=== PATIENT | female | born 1980 | race Caucasian/White ===

== ENCOUNTER 2023-04-07 09:37 | Outpatient (REF) | payer OTHER, SELFPAY ==
[2023-04-07 10:12] LABS: MANUAL DIFF FLAG NO
[2023-04-07 11:12] LABS: Basophils Percent Auto 0.3 % (0-2); Eosinophils Absolute Auto 0.1 X10*3/uL (0.0-0.4); Hemoglobin 14.5 g/dl (12.0-16.0); Imm Gran Abs Auto 0.06 X10*3/uL (0.00-0.03); Imm Gran Pct Auto 0.8 % (0.0-0.4); Lymphocytes Absolute Auto 2.4 X10*3/uL (1.2-4.9); Mean Corpuscular HGB Conc 33.7 g/dl (31.0-35.0); Mean Corpuscular Hemoglobin 30.5 pg (27.0-33.0); Mean Corpuscular Volume 90.5 fL (80.0-98.0); Mean Platelet Volume 10.5 fL (9.4-12.3); Monocytes Absolute Auto 0.8 X10*3/uL (0.1-1.2); Monocytes Percent Auto 9.8 % (2-11); Neutrophils Absolute Auto 4.6 x10*3/uL (2.0-8.3); Neutrophils Percent Auto 58.1 % (45-73); Platelet Count 282 X10*3/uL (160-400); Red Blood Count 4.75 X10*6/uL (4.20-5.50); Red Cell Distribution Width 12.3 % (11.0-16.0); White Blood Count 7.8 X10*3/uL (4.8-10.8)
[2023-04-07 12:04] LABS: Alanine Aminotransferase 20 U/L (0-31); Albumin Level 4.3 g/dL (3.5-5.0); Alkaline Phosphatase 65 U/L (39-117); Anion Gap 15 (12-20); Aspartate Amino Transferase 18 U/L (5-31); Bilirubin Total 0.6 mg/dL (0.0-1.0); Blood Urea Nitrogen 16 mg/dL (9-16); Calcium 9.4 mg/dL (8.4-10.2); Carbon Dioxide 22 mmol/L (22-29); Chloride 106 mmol/L (96-108); Cholesterol 211 mg/dL; Estimated Glomerular Filt Rate > 60; Glucose Random 91 mg/dL (60-115); HDL Cholesterol 58 mg/dL; LDL Cholesterol Calculated 140 mg/dl; Potassium 4.5 mmol/L (3.3-5.1); Sodium 138 mmol/L (135-145); Total Protein 7.4 g/dL (6.5-8.0); Triglycerides 69 mg/dL
== END 2023-04-07 09:38 | disposition home or self-care (01) ==
LOC: HO.LAB 09:37
PROVIDERS: PCP Internal Medicine; Visit Provider Internal Medicine
DX: Z00.00 Encounter for general adult medical examination without abnormal findings (principal); F32.2 Major depressive disorder, single episode, severe without psychotic features; F90.0 Attention-deficit hyperactivity disorder, predominantly inattentive type; N20.0 Calculus of kidney; N30.10 Interstitial cystitis (chronic) without hematuria; R10.11 Right upper quadrant pain; R19.7 Diarrhea, unspecified
CPT/HCPCS: 36415; 80053; 80061; 85025

== ENCOUNTER 2023-04-29 10:15 | Outpatient (REF) | payer OTHER, SELFPAY ==
--- NOTE | ~2023-04-29 | US_ITS ---
EXAMINATION: US ABDOMEN COMPLETE CLINICAL INFORMATION: Right upper quadrant pain. COMPARISON: None available. TECHNIQUE: Real-time imaging of the abdominal viscera. FINDINGS: PANCREAS: Normal. ABDOMINAL AORTA: The proximal, mid, and distal segments are normal in caliber. INFERIOR VENA CAVA: Visualized portions are normal. LIVER: Normal. The liver is normal in size. The liver contour is normal. Parenchymal echogenicity is normal. No focal hepatic lesion. There is no intrahepatic biliary duct dilatation seen. GALLBLADDER: There are a few tiny gallbladder cholesterol polyps, the largest measuring 3 mm. The gallbladder is physiologically distended without evidence of stones, sludge, wall thickening or pericholecystic fluid. COMMON BILE DUCT: Normal in caliber measuring 0.4 cm in diameter. RIGHT KIDNEY: Normal. No hydronephrosis. No renal calculi or focal parenchymal lesions. The kidney measures 9.7 cm in maximum dimension. LEFT KIDNEY: Normal. No hydronephrosis. No renal calculi or focal parenchymal lesions. The kidney measures 10.5 cm in maximum dimension. SPLEEN: No focal finding. The spleen measures 10.0 cm in maximum dimension. FREE FLUID: None. OTHER: A left pleural effusion is seen. US/US abdomen complete IMPRESSION: 1. Tiny cholesterol polyps are incidentally noted. No imaging follow-up is recommended. 2. A left pleural effusion is seen.
== END 2023-04-29 10:16 | disposition home or self-care (01) ==
LOC: HO.US 10:15
PROVIDERS: PCP Internal Medicine; Visit Provider Internal Medicine
DX: R10.11 Right upper quadrant pain (principal)
CPT/HCPCS: 76700

== ENCOUNTER 2023-05-06 09:43 | Outpatient (AMB) | payer OTHER, SELFPAY ==
--- NOTE | 2023-05-06 09:50 | MHC.OFFVIS ---
Intake Vital Signs 05/06/23 09:54 Height 5 ft 1 in Weight 139 lb BMI 26.3 BP 121/68 Blood Pressure Location Rt brachial Position Sitting Pulse 77 Intake Visit Reasons: Abdominal Pain/Chronic Diarrhea Intake Note: This patient presents for an assessment for abdominal pain and chronic diarrhea. Patient c/o; Onset 1 year, RUQ pain radiates towards back, denies loss of appetite, reports chronic diarrhea, denies nausea or vomiting. Hematologist Oncologist Required: No Accompanied by: Self / Same As Patient Allergies No Known Allergies Allergy (Verified 05/06/23 09:54) HPI Abdominal Pain/Chronic Diarrhea HPI Details 42-year-old female referred for chronic abdominal pain. She has had this pain on the right flank area although with right upper quadrant. She says this started May 2022. She says she was in [facility] at that time and was diagnosed to have a kidney stone on the right. She says she was septic with an infection then she eventually had a procedure done in [place] to remove the kidney stone. She says that since that time, she has had this chronic pain on the same side. She denies any GI complaints. She actually has good oral intake. She denies any weight loss She says that she had followed with her urologist in [place] and was referred to a urogynecologist because she has urinary incontinence as well. She had an ultrasound done last week which shows small gallbladder polyps. [facility] Medical History (Updated 05/06/23 @ 10:18 by Nader Wells MD) Chronic right flank pain History of kidney stones Surgical History (Updated 05/06/23 @ 09:55 by FARAZ Frazier) H/O nephrolithotomy with removal of calculi Family History (Updated 05/06/23 @ 09:56 by FARAZ Frazier) Maternal Aunt Cancer Social History (Updated 05/06/23 @ 10:01 by FARAZ Frazier) Alcohol intake: never Patient Tobacco Use Status: Never used Tobacco Substance Use Type: Marijuana Review of Systems Const Denies chills and Denies fever(s) Card Denies chest pain, Denies dyspnea and Denies dyspnea on exertion Resp Denies cough, Denies dyspnea and Denies dyspnea on exertion GI Denies hematochezia and Denies change in bowel habits Denies hematuria Musc Denies back pain and Denies limited range of motion Neuro Denies focal weakness and Denies convulsions Psych Denies depression and Denies mood swings Physical Exam Vital Signs: Last Vital Signs Pulse 77 05/06/23 09:54 BP 121/68 05/06/23 09:54 BMI result Body Mass Index 26.3 Const General: comfortable and no acute distress Orientation/consciousness: patient oriented x3 Neck Neck: Yes no lymphadenopathy Resp Auscultation: clear to auscultation bilaterally Cardio Rhythm: regular rhythm GI Other: No Hernandez's sign Palpation (GI): Soft to palpation, nontender and no guarding Neuro General: patient oriented x3 Assessment & Plan Assessment & Plan (1) Chronic right flank pain: Code(s): R10.9 - Unspecified abdominal pain; G89.29 - Other chronic pain Plan: She has chronic pain on the right flank and she says that this is the same as she has had when she was diagnosed to have kidney stones with urosepsis in May,. She had a procedure done for this with Urology I have ordered a CT scan of the abdomen and pelvis to re-evaluate the area. Currently she has a very benign exam. Her ultrasound shows small cholesterol polyps in the gallbladder and I assured her that this does not require any intervention and is unlikely to be causing her chronic right-sided abdominal pain I will see her in the office after her CT scan. Her sister was involved with discussion. Orders: Orders CT abdomen pelvis wo/w IV con Today G89.29 - Other chronic pain, R10.9 - Unspecified abdominal pain Blood Urea Nitrogen Today G89.29 - Other chronic pain, R10.9 - Unspecified abdominal pain Creatinine Today G89.29 - Other chronic pain, R10.9 - Unspecified abdominal pain Coding Level of Care Code New Pt Level 4 (88101) Diagnoses Chronic right flank pain R10.9; G89.29
[2023-05-06 09:54] VITALS: BP 121/68; PULSE 77; BMI 26.3
== END 2023-05-06 10:29 | disposition home or self-care (01) ==
PROVIDERS: PCP Internal Medicine; Referring Provider Internal Medicine; Visit Provider Surgery
DX: R10.9 Unspecified abdominal pain (principal); G89.29 Other chronic pain
CPT/HCPCS: 99204

== ENCOUNTER 2023-05-06 09:43 | Outpatient (REF) | payer OTHER, SELFPAY ==
[2023-05-06 11:21] LABS: Blood Urea Nitrogen 21 mg/dL (9-16); Estimated Glomerular Filt Rate > 60
== END 2023-05-06 09:44 | disposition home or self-care (01) ==
LOC: HO.LAB 09:43
PROVIDERS: PCP Internal Medicine; Referring Provider Internal Medicine; Visit Provider Surgery
DX: R10.9 Unspecified abdominal pain (principal); G89.29 Other chronic pain
CPT/HCPCS: 36415; 82565; 84520; 99202

== ENCOUNTER 2023-06-04 08:24 | Outpatient (REF) | payer OTHER, SELFPAY ==
--- NOTE | ~2023-06-04 | CT_ITS ---
EXAMINATION: CT ABDOMEN AND PELVIS WITH CONTRAST CLINICAL INFORMATION: Abdominal pain COMPARISON: Previous abdominal ultrasound April 2023 TECHNIQUE: Multidetector volumetric images were obtained from the superior aspect of the liver through the pubic symphysis following administration 85 mL of Omnipaque 350 intravenous contrast. Sagittal and coronal reformatted images were obtained on the technologist's workstation. Oral contrast: Yes This CT examination was performed using dose optimization techniques as appropriate, variously including the following: *Automated exposure control *Adjustment of mA and/or kV according to patient size (this includes techniques or standardized protocols for targeted exams where dose is matched to indication/reason for exam; i.e. extremities or head) *Use of iterative reconstruction technique DLP: 361 mGy-cm FINDINGS: LUNG BASES: The visualized lung bases are unremarkable. LIVER, GALLBLADDER, AND BILIARY TREE: The liver is normal in size, shape, and attenuation. No focal hepatic lesion or biliary ductal dilatation is present. The gallbladder is unremarkable with no evidence of radiopaque gallstones, gallbladder wall thickening, or obvious pericholecystic inflammatory changes. PANCREAS: Unremarkable. SPLEEN: Unremarkable. ADRENAL GLANDS: Unremarkable. KIDNEYS AND URETERS: The kidneys are normal in size, shape, and attenuation. No hydronephrosis, hydroureter, or calculi seen. No perinephric stranding. BLADDER: Unremarkable. GASTROINTESTINAL TRACT: There are questionable scattered areas of mild wall thickening of the colon. Largest areas seen in the proximal sigmoid colon. There is prominence of the adjacent vasculature/vasa recta. Findings are questionable for mild colitis. Small and large bowel is otherwise normal. The appendix is normal. ABDOMINAL WALL: No significant hernia is appreciated. LYMPH NODES: Normal. VASCULAR: Unremarkable. PELVIC VISCERA: Unremarkable. OSSEOUS STRUCTURES: Unremarkable. CT/CT abdomen pelvis w IV con IMPRESSION: Question mild colitis. Fleischner guidelines were followed.
[2023-06-04] MEDS: iohexoL 350 MG/ML 100 ML INFUS..BTL IV (09:16)
== END 2023-06-04 08:25 | disposition home or self-care (01) ==
LOC: HO.CT 08:24
PROVIDERS: PCP Internal Medicine; Visit Provider Surgery
DX: R10.9 Unspecified abdominal pain (principal); G89.29 Other chronic pain; Z87.442 Personal history of urinary calculi
CPT/HCPCS: 74177; Q9967

== ENCOUNTER 2023-06-11 10:14 | Outpatient (AMB) | payer OTHER, SELFPAY ==
--- NOTE | 2023-06-11 10:31 | MHC.OFFVIS ---
Intake Intake Visit Reasons: Follow Up CT scan Results Intake Note: This patient presents for a follow-up for Ct-Scan results. Patient c/o;reports no changes. Cyber Analyst Required: No Accompanied by: Self / Same As Patient Allergies No Known Allergies Allergy (Verified 06/11/23 10:31) Medication List - Last Reconciled 06/11/23 by Nader Wells MD sertraline 150 mg PO DAILY HPI Follow Up CT scan Results HPI Details She is here for follow-up after a CT scan. I had sent her for this CAT scan of the abdomen and pelvis because of her chronic pain on the right side of her abdomen. She reiterated that this started after she had kidney stones in the past and had a ureteroscopy and stone removal last July,. She feels that the pain that she has is same as before when she had this ureteroscopy. She denies GI complaints otherwise. She also has issues with bladder prolapse and says she is seeing a urogynecologist. [facility] Medical History History of kidney stones Chronic right flank pain Surgical History H/O nephrolithotomy with removal of calculi Family History Maternal Aunt Cancer Social History Alcohol intake: never Patient Tobacco Use Status: Never used Tobacco Substance Use Type: Marijuana Review of Systems Const Denies chills and Denies fever(s) Card Denies chest pain and Denies chest pain at rest Resp Denies cough GI Denies constipation, Denies diarrhea and Denies nausea Reports difficulty voiding Physical Exam Const General: no acute distress Resp Effort & Inspection: normal respiratory effort Cardio Rate: regular rate GI Palpation (GI): Soft to palpation, not firm, Tenderness to palpation present (GI) (Some tenderness to deep palpation on the right flank area, right upper quad) and no guarding Assessment & Plan Assessment & Plan (1) Chronic right flank pain: Code(s): R10.9 - Unspecified abdominal pain; G89.29 - Other chronic pain Plan: Her CAT scan does not reveal any significant pathology in the right side of her abdomen. She does have a small gallbladder polyp measuring about 3 mm in size. I explained to her that it is not normally recommended to proceed with cholecystectomy for a gallbladder polyp of this small size. I did explain to her the option of proceeding with cholecystectomy because of her chronic pain although it is unlikely that this is for etiology. She says she does not want to go for cholecystectomy if it is unlikely to provide relief She reiterated that her pain is the same as when she had her ureteroscopy done almost a year ago. I did advise her to continue to see her urologist. I can see her in the office on a p.r.n. basis. I have recommended following the gallbladder polyp had an ultrasound after a year. Coding Level of Care Code Est Pt Level 3 (31430) Diagnoses Chronic right flank pain R10.9; G89.29
== END 2023-06-11 10:45 | disposition home or self-care (01) ==
PROVIDERS: PCP Internal Medicine; Visit Provider Surgery
DX: R10.9 Unspecified abdominal pain (principal); G89.29 Other chronic pain
CPT/HCPCS: 99213

== ENCOUNTER → 2023-06-11 10:14 | Outpatient (BNVA) | payer OTHER, SELFPAY | PROVIDERS: PCP Internal Medicine; Visit Provider Surgery | DX: G89.29 Other chronic pain (principal); R10.9 Unspecified abdominal pain | CPT/HCPCS: 99212 ==

== ENCOUNTER 2023-06-22 11:03 | Outpatient (AMB) | payer OTHER, SELFPAY ==
--- NOTE | 2023-06-22 11:31 | MHC.OFFVIS ---
Intake Vital Signs 06/22/23 11:32 Height 5 ft 1 in Weight 145 lb 1.027 oz BMI 27.4 BP 147/65 H Blood Pressure Location Lt brachial Position Sitting Pulse 81 Intake Visit Reasons: Diarrhea, RUQ pain Intake Note: Patient presents to in office visit today as a new patient for diarrhea, and RUQ abdominal pain. CC: Patient reports she had sx in July last year for an infected kidney and every since after the surgery she has been having diarrhea and RUQ abdominal pain pretty much all the time . Patient pain scale right now 5/10 but it fluctuates. Accompanied by: Self / Same As Patient Allergies No Known Allergies Allergy (Verified 06/22/23 11:43) HPI Diarrhea, RUQ pain HPI Details 42-year-old female with past medical history of kidney stones, flank pain, interstitial cystitis, bladder incontinence is here today for initial consultation. Patient was sent by her PCP for right upper quadrant pain. Patient reports that her right upper quadrant pain is there all the time, not necessary related to food. Patient denies dyspepsia, dysphagia or odynophagia. Denies melena, hematochezia, unintentional weight loss or ribbon like stools. Patient reports that she has about 3 loose bowel movements every day. Patient denies postprandial loose stools. Patient denies stool being smelly, no mucus. Color brown. Patient reports family history of Crohn's in patient's brother. He was diagnosed with Crohn's disease in 2011 [facility] Medical History (Updated 06/22/23 @ 12:04 by Renetta Richards, [facility]) Stress bladder incontinence, female Interstitial cystitis History of kidney stones Chronic right flank pain Surgical History H/O nephrolithotomy with removal of calculi Family History Maternal Aunt Cancer Social History Alcohol intake: never Patient Tobacco Use Status: Never used Tobacco Substance Use Type: Marijuana Review of Systems Const Denies weight gain and Denies weight loss ENT Reports no additional complaints, Denies dysphagia and Denies odynophagia Card Reports no additional complaints Resp Reports no additional complaints GI Reports abdominal pain (RUQ), Denies belching, Denies melena, Reports bloating, Denies change in bowel habits, Denies dysphagia, Denies excessive flatus, Denies dyspepsia, Denies heartburn, Denies diarrhea, Reports loose stools, Denies nausea, Denies odynophagia and Denies vomiting Reports no additional complaints Musc Reports no additional complaints Neuro Reports no additional complaints Psych Reports no additional complaints Endo Reports no additional complaints Physical Exam Vital Signs: Last Vital Signs Pulse 81 06/22/23 11:32 BP 147/65 H 06/22/23 11:32 BMI result Body Mass Index 27.4 Const General: healthy appearing, no acute distress and well developed Nutritional Appearance: well nourished Orientation/consciousness: patient oriented x3 HEENT Head: Yes normal to inspection, Yes normocephalic and Yes atraumatic Face and sinus: Yes normal facial exam Mouth: Normal oral and palatal mucosa present Throat: Yes posterior oropharynx normal, Yes tonsils normal and Yes uvula midline Eyes General: appearance normal, both eyes and all related structures Neck Neck: Yes normal visual inspection, Yes full ROM and Yes trachea midline Thyroid: Thyroid normal Resp Effort & Inspection: normal respiratory effort, able to speak in complete sentences, no tracheal deviation and symmetric chest movement Auscultation: clear to auscultation bilaterally Cardio Rate: regular rate Heart sounds: S1 normal heart sound present and S2 normal heart sound present GI Inspection: Yes normal to inspection and No distended Palpation (GI): Soft to palpation, not firm, nontender and No hepatosplenomegaly present Auscultation: normal bowel sounds General: Yes no CVA tenderness Back/Spine/Pelvis Back: no CVA tenderness Skin General skin exam: elasticity normal, turgor normal and dry skin Neuro General: patient oriented x3 Psych Appearance: grossly normal Mental Status: mental status grossly normal Speech and movement: Normal speech and movement present Results Reviewed Results Reviewed: ABDOMINAL ULTRASOUND 04/29/2023 FINDINGS: PANCREAS: Normal. ABDOMINAL AORTA: The proximal, mid, and distal segments are normal in caliber. INFERIOR VENA CAVA: Visualized portions are normal. LIVER: Normal. The liver is normal in size. The liver contour is normal. Parenchymal echogenicity is normal. No focal hepatic lesion. There is no intrahepatic biliary duct dilatation seen. GALLBLADDER: There are a few tiny gallbladder cholesterol polyps, the largest measuring 3 mm. The gallbladder is physiologically distended without evidence of stones, sludge, wall thickening or pericholecystic fluid. COMMON BILE DUCT: Normal in caliber measuring 0.4 cm in diameter. RIGHT KIDNEY: Normal. No hydronephrosis. No renal calculi or focal parenchymal lesions. The kidney measures 9.7 cm in maximum dimension. LEFT KIDNEY: Normal. No hydronephrosis. No renal calculi or focal parenchymal lesions. The kidney measures 10.5 cm in maximum dimension. SPLEEN: No focal finding. The spleen measures 10.0 cm in maximum dimension. FREE FLUID: None. OTHER: A left pleural effusion is seen. US/US abdomen complete IMPRESSION: 1. Tiny cholesterol polyps are incidentally noted. No imaging follow-up is recommended. 2. A left pleural effusion is seen. CT SCAN OF ABDOMEN AND PELVIS 2022 FINDINGS: LUNG BASES: The visualized lung bases are unremarkable. LIVER, GALLBLADDER, AND BILIARY TREE: The liver is normal in size, shape, and attenuation. No focal hepatic lesion or biliary ductal dilatation is present. The gallbladder is unremarkable with no evidence of radiopaque gallstones, gallbladder wall thickening, or obvious pericholecystic inflammatory changes. PANCREAS: Unremarkable. SPLEEN: Unremarkable. ADRENAL GLANDS: Unremarkable. KIDNEYS AND URETERS: The kidneys are normal in size, shape, and attenuation. No hydronephrosis, hydroureter, or calculi seen. No perinephric stranding. BLADDER: Unremarkable. GASTROINTESTINAL TRACT: There are questionable scattered areas of mild wall thickening of the colon. Largest areas seen in the proximal sigmoid colon. There is prominence of the adjacent vasculature/vasa recta. Findings are questionable for mild colitis. Small and large bowel is otherwise normal. The appendix is normal. ABDOMINAL WALL: No significant hernia is appreciated. LYMPH NODES: Normal. VASCULAR: Unremarkable. PELVIC VISCERA: Unremarkable. OSSEOUS STRUCTURES: Unremarkable. CT/CT abdomen pelvis w IV con IMPRESSION: Question mild colitis. Assessment & Plan Assessment & Plan (1) Diarrhea: Code(s): R19.7 - Diarrhea, unspecified Qualifiers: Diarrhea type: unspecified type Qualified Code(s): R19.7 - Diarrhea, unspecified (2) IBS (irritable bowel syndrome): Code(s): K58.9 - Irritable bowel syndrome without diarrhea Qualifiers: Irritable bowel syndrome type: with both diarrhea and constipation Qualified Code(s): K58.2 - Mixed irritable bowel syndrome Plan As mentioned above in HPI patient has diarrhea not related to food. Will have patient start on fiber therapy daily and help her eliminate her bowels by giving her Senokot. Patient may take 1 or 2 tablets at bedtime to help her empty her bowels completely. Had CT scan in May that showed mild colitis. Will run CRP to make sure that it is night IBD. Patient does have a family history of Crohn's. Next step will be sending patient for colonoscopy and upper endoscopy to rule out IBD. Low FODMAP diet discussed with patient. List of food recommended as well as list of food to avoid given to her. Patient will be sent for more lab work. Will rule out celiac, malabsorption, pancreatitis. Will check thyroid panel. Patient will return in 5-6 weeks, sooner on as needed basis. She was given the opportunity to ask questions and all questions answered. Thank you for allowing me to participate in her care Orders: Orders Vitamin B12 and Folate Today R19.7 - Diarrhea, unspecified Lipase Today R10.9 - Unspecified abdominal pain TSH reflex Free T4 Today K59.00 - Constipation, unspecified C Reactive Protein Today K58.9 - Irritable bowel syndrome without diarrhea Vitamin D 25-OH (D2 and D3) Today E55.9 - Vitamin D deficiency, unspecified GI Panel Today R19.7 - Diarrhea, unspecified Transglutaminase Ab IgG Today R10.9 - Unspecified abdominal pain Transglutaminase IgA Today R10.9 - Unspecified abdominal pain Calprotectin, Fecal Today R15.9 - Full incontinence of feces Medications: New methylcellulose (laxative) (Citrucel) 500 mg PO DAILY 30 tabs 2RF K59.00 - Constipation, unspecified sennosides (Natural Senna Laxative) 17.2 mg (2 x 8.6 mg) PO BEDTIME 60 tabs 3RF constipation K59.00 - Constipation, unspecified Coding Level of Care Code New Pt Level 4 (18136) Diagnoses Diarrhea, unspecified type R19.7 Diarrhea type: unspecified type Irritable bowel syndrome with both constipation and diarrhea K58.2 Irritable bowel syndrome type: with both diarrhea and constipation Time Spent (min) 45 Comment 30 minutes spent with patient and additional 15 minutes spent reviewing her records.
[2023-06-22 11:32] VITALS: BP 147/65; PULSE 81; BMI 27.4
== END 2023-06-22 12:25 | disposition home or self-care (01) ==
PROVIDERS: PCP Internal Medicine; Visit Provider Nurse Practitioner Family
DX: R19.7 Diarrhea, unspecified (principal); K58.2 Mixed irritable bowel syndrome
CPT/HCPCS: 99204

== ENCOUNTER 2023-06-22 11:03 | Outpatient (REF) | payer OTHER, SELFPAY ==
[2023-06-22 14:25] LABS: C Reactive Protein 0.19 mg/dL (< or = 0.50); Lipase 18 U/L (8-78)
[2023-06-22 14:37] LABS: TSH reflex Free T4 1.66 uIU/mL (0.32-4.0)
[2023-06-22 15:04] LABS: Folate 9.3 ng/mL (> or = 4.0); Vitamin B12 379 pg/mL (200-900)
[2023-06-23 20:02] LABS: Transglutaminase Ab IgG <1.0 U/mL; Transglutaminase IgA <1.0 U/mL
[2023-06-26 13:39] LABS: Vitamin D 25-OH, D2 <4 ng/mL; Vitamin D 25-OH, D3 22 ng/mL; Vitamin D 25-OH, Total 22 ng/mL (30-100)
== END 2023-06-22 11:04 | disposition home or self-care (01) ==
LOC: HO.LAB 11:03
PROVIDERS: PCP Internal Medicine; Visit Provider Nurse Practitioner Family
DX: R10.11 Right upper quadrant pain (principal); K58.2 Mixed irritable bowel syndrome; E55.9 Vitamin D deficiency, unspecified; R15.9 Full incontinence of feces
CPT/HCPCS: 36415; 82306; 82607; 82746; 83690; 84443; 86140; 86364

== ENCOUNTER 2023-06-24 08:55 | Outpatient (REF) | payer OTHER, SELFPAY ==
[2023-06-24 14:26] LABS: Adenovirus F 40/41 Not Detected (Not Detect.); Astrovirus Not Detected (Not Detect.); Campylobacter Not Detected (Not Detect.); Cryptosporidium Not Detected (Not Detect.); Cyclospora cayetanensis Not Detected (Not Detect.); E. coli EAEC Not Detected (Not Detect.); E. coli EPEC Not Detected (Not Detect.); E. coli ETEC Not Detected (Not Detect.); E. coli STEC Not Detected (Not Detect.); Entamoeba histolytica Not Detected (Not Detect.); Giardia lamblia Not Detected (Not Detect.); Norovirus GI/GII Not Detected (Not Detect.); Plesiomonas shigelloides Not Detected (Not Detect.); Rotavirus A Not Detected (Not Detect.); Salmonella Not Detected (Not Detect.); Sapovirus Not Detected (Not Detect.); Shigella sp./EIEC Not Detected (Not Detect.); Vibrio Not Detected (Not Detect.); Vibrio Cholerae Not Detected (Not Detect.); Yersinia enterocolitica Not Detected (Not Detect.)
[2023-07-01 23:32] LABS: Calprotectin, Fecal 175 mcg/g
== END 2023-06-24 08:56 | disposition home or self-care (01) ==
LOC: HO.LNP 08:55
PROVIDERS: Visit Provider Nurse Practitioner Family
DX: R19.7 Diarrhea, unspecified (principal); R15.9 Full incontinence of feces
CPT/HCPCS: 83993; 87507

== ENCOUNTER 2023-07-04 12:16 | Emergency (ER) | payer OTHER, SELFPAY ==
--- NOTE | ~2023-07-04 | CT_ITS ---
EXAMINATION: CT ABDOMEN AND PELVIS WITH CONTRAST CLINICAL INFORMATION: Right abdominal pain and diarrhea. COMPARISON: CT abdomen and pelvis dated 06/04/2023; abdominal ultrasound dated 04/29/2023. TECHNIQUE: Multidetector volumetric images were obtained from the superior aspect of the liver through the pubic symphysis following administration 85 mL of Omnipaque 350 intravenous contrast. Sagittal and coronal reformatted images were obtained on the technologist's workstation. Oral contrast: No This CT examination was performed using dose optimization techniques as appropriate, variously including the following: *Automated exposure control *Adjustment of mA and/or kV according to patient size (this includes techniques or standardized protocols for targeted exams where dose is matched to indication/reason for exam; i.e. extremities or head) *Use of iterative reconstruction technique DLP: 653 mGy-cm FINDINGS: LUNG BASES: There is bibasilar dependent scar/subsegmental atelectasis. LIVER, GALLBLADDER, AND BILIARY TREE: The liver is normal in size, shape, and attenuation. No focal hepatic lesion or biliary ductal dilatation is present. The gallbladder is unremarkable with no evidence of radiopaque gallstones, gallbladder wall thickening, or obvious pericholecystic inflammatory changes. PANCREAS: Unremarkable. SPLEEN: Unremarkable. ADRENAL GLANDS: Unremarkable. KIDNEYS AND URETERS: The kidneys are normal in size, shape, and attenuation. No hydronephrosis, hydroureter, or calculi seen. No perinephric stranding. BLADDER: Unremarkable. GASTROINTESTINAL TRACT: The small and large bowel are unremarkable. The appendix is unremarkable. ABDOMINAL WALL: There is a small fat-containing umbilical hernia. LYMPH NODES: Normal. VASCULAR: Unremarkable. PELVIC VISCERA: The uterus and adnexa are unremarkable. OSSEOUS STRUCTURES: Unremarkable. CT/CT abdomen pelvis w IV con IMPRESSION: A small fat-containing umbilical hernia is seen. The examination is otherwise unremarkable. Fleischner guidelines were followed.
--- NOTE | 2023-07-04 12:53 | ED.ABDPAIN ---
HPI - Abdominal Pain General Chief Complaint: Abdominal Pain Stated Complaint: Stomach pain, dizziness Time Seen by Provider: 07/04/23 13:54 Source: patient Mode of arrival: ambulatory Limitations: no limitations History of Present Illness HPI narrative: This is a 42-year-old female who has had right sided abdominal pain intermittent over the last 1 year. Patient reports her pain initially began with a kidney stone 1 year ago which was subsequently removed. She tells me that her pain never completely improved and she has had intermittent abdominal pain and diarrhea since then. She reports over the last month she has had increase in symptoms. She has been seen by a general surgeon a rn bariatric a urogynecologist and a secondary school teacher. She did have her gallbladder evaluated by General surgery Dr. Wells as who felt this pain was not related. She does have several gallbladder polyps. She has had normal evaluations by Urogynecology and by her secondary school teacher and has no reports of urinary symptoms, vaginal discharge, rashes or lesions. She has been seen by rn bariatric. Two weeks ago she was prescribed fiber pills and senna which she has been taking however this caused diarrhea and so she subsequently stopped taking the medication. She denies any black or bloody stools. No weight loss. She does have a brother who has Crohn's disease. No other family history of IBD. Related Data Home Medications Medication Instructions Recorded Confirmed sertraline 150 mg capsule 150 mg PO DAILY 05/06/23 06/11/23 lisdexamfetamine 70 mg capsule 70 mg PO DAILY 06/22/23 (Vyvanse) tolterodine 4 mg capsule,extended 4 mg PO DAILY 06/22/23 release 24 hr (Detrol LA) Previous Rx's Medication Instructions Recorded methylcellulose (laxative) 500 mg 500 mg PO DAILY #30 tabs 06/22/23 tablet (Citrucel) sennosides 8.6 mg tablet (Natural 17.2 mg (2 x 8.6 mg) PO BEDTIME 06/22/23 Senna Laxative) constipation #60 tabs dicyclomine 10 mg capsule 10 mg PO QID PRN abdominal pain 07/04/23 #20 caps ondansetron 4 mg disintegrating 4 mg PO Q6H PRN nausea and 07/04/23 tablet vomiting #20 tabs Allergies Allergy/AdvReac Type Severity Reaction Status Date / Time No Known Allergies Allergy Verified 06/22/23 11:43 Review of Systems Review of Systems Yes all other systems are reviewed and are negative Constitutional: Reports no additional constitutional complaints, Denies body ache(s), Denies chills, Denies fever(s), Denies headache(s) and Denies weakness Eyes: Reports no additional eye complaints and Denies change in vision Reports system reviewed and no additional complaints, except as documented, Denies dizziness, Denies headache(s), Denies nasal congestion, Denies nasal discharge and Denies neck pain Cardiovascular: Reports no additional cardiovascular complaints, Denies chest pain, Denies leg edema and Denies dyspnea Respiratory: Reports no additional respiratory complaints, Denies cough and Denies dyspnea Gastrointestinal: Reports no additional gastrointestinal complaints, Reports abdominal pain, Denies melena, Denies hematochezia, Denies coffee ground emesis, Reports diarrhea, Denies nausea and Denies vomiting Genitourinary: Reports no additional female genitourinary complaints and Denies urinary incontinence Musculoskeletal: Reports no additional musculoskeletal complaints, Denies back pain, Denies arthralgias, Denies joint swelling, Denies neck pain, Denies numbness and Denies tingling Skin/Breast: Reports system reviewed and no additional complaints, except as docu and Denies rash Reports system reviewed and no additional complaints, except as documented, Denies Abnormal speech present, Denies dizziness, Denies headache(s), Denies numbness, Denies tingling and Denies weakness PMFSH Past Medical History Attestation statement: The following information was validated with the patient. Source: old records reviewed and nursing notes reviewed Medical History Stress bladder incontinence, female Interstitial cystitis History of kidney stones Chronic right flank pain Surgical History H/O nephrolithotomy with removal of calculi Family History Family History Maternal Aunt Cancer Social History Social History Alcohol intake: never Patient Tobacco Use Status: Never used Tobacco Smoked in Last 30 Days: No Use of substances other than those prescribed or required for medical reasons: Yes Substance Use Type: Marijuana Advance Directives: No Advance Directives Information Provided: No Patient : No Physical Exam ED Vital Signs: Vital Signs - 24 hr 07/04/23 12:54 07/04/23 14:48 07/04/23 15:23 Temperature 97.0 F 98.0 F Pulse Rate 70 62 67 Respiratory Rate 16 16 18 Blood Pressure 118/89 120/88 138/90 H Pulse Oximetry 99 98 99 Oxygen Delivery Method Nasal Cannula Room Air Room Air BMI result Body Mass Index 26.4 Const General: cooperative, healthy appearing, comfortable and no acute distress Orientation/consciousness: patient oriented x3 Limitations: no limitations HENMT Head: Yes normal to inspection Ears: hearing grossly normal bilaterally General nose exam: Normal external nose present Face and sinus: Yes normal facial exam Mouth: Normal oral and palatal mucosa present Throat: Yes posterior oropharynx normal Eyes General: appearance normal, both eyes and all related structures Pupils: Equal, round and reactive pupils present Neck Neck: Yes normal visual inspection Chest Chest palpation & inspection: normal inspection of the chest Resp Effort & Inspection: normal respiratory effort Auscultation: clear to auscultation bilaterally Cardio Rate: regular rate Rhythm: regular rhythm Peripheral pulses: Peripheral pulses 2+ throughout GI Inspection: Yes normal to inspection Palpation (GI): Soft to palpation, Tenderness to palpation present (GI) in the RLQ and in the RUQ; with no rebound tenderness and no guarding Auscultation: normal bowel sounds Back/Spine/Pelvis Thoracic/Lumbar Spine: thoracic and lumbar spine normal to inspection Skin General skin exam: no rashes or lesions noted Neuro General: patient oriented x3, no focal motor deficits and normal sensation to monofilament Cranial nerves: Yes Equal, round and reactive pupils present Cognition (Neuro): normal cognition Speech: No Abnormal speech present Gait exam (Neuro): Normal gait present Motor exam (neuro): 5/5 motor strength present throughout Extrem General: Yes normal to inspection Course Course Course Narrative: This is an RME: Additional HPI, ROS, PE not included below will be deferred to primary provider. Patient is a 42-year-old female presents emergency department for evaluation of R ABD pain x 2-3 weeks, and diarrhea. She reports that she was previously prescribed senna and fiber supplementation approximately 1.5 weeks ago which she stopped 2 days ago. She has had chronic pain in this region since 2021 after a kidney stone, but pain is worse over past 2 weeks. She had an outpatient CT AP 06/04/2023, revealing a mild colitis, reports at that time she was experiencing this degree of pain. Plan: labs, urinalysis, further imaging referred to primary provider Reevaluation(s) Reevaluation #1: CT shows no acute finding. Labs show mild leukocytosis otherwise unremarkable. Urine testing is negative. Stool studies are pending. Plan for discharge home with continuing to follow up with GI outpatient Medical Decision Making Medical Decision Making [facility] Narrative: This is a 42-year-old female who has had right sided abdominal pain intermittent over the last 1 year.? Patient reports her pain initially began with a kidney stone 1 year ago which was subsequently removed.? She tells me that her pain never completely improved and she has had intermittent abdominal pain and diarrhea since then.? She reports over the last month she has had increase in symptoms.? She has been seen by a general surgeon a rn bariatric a urogynecologist and a secondary school teacher.? She did have her gallbladder evaluated by General surgery Dr. Wells as who felt this pain was not related.? She does have several gallbladder polyps.? She has had normal evaluations by Urogynecology and by her secondary school teacher and has no reports of urinary symptoms, vaginal discharge, rashes or lesions.? She has been seen by rn bariatric.? Two weeks ago she was prescribed fiber pills and senna which she has been taking however this caused diarrhea and so she subsequently stopped taking the medication.? She denies any black or bloody stools.? No weight loss.? She does have a brother who has Crohn's disease.? No other family history of IBD. Exam patient has tenderness over the right upper and right lower quadrant with no rebound or guarding. Will obtain labs, UA, GI panel, cdiff studies and CT. Patient will be given IV fluids, analgesia, antiemetics Differential Diagnosis Differential Diagnoses: The differential diagnosis associated with the presentation includes Due to length of symptoms I do consider IBD Low concern for acute appendicitis, diverticulitis, renal colic, pyelonephritis, ovarian torsion, PID Admission/Observation Consideration of admission/observation: Escalation of care including admission/observation considered Normal CT scan, tolerating p.o.. Plan for discharge home with outpatient GI follow-up Lab Data [facility] Lab Attestation statement: I reviewed the patient's lab results. Mild leukocytosis otherwise unremarkable 07/04/23 13:08 07/04/23 13:08 Labs: Lab Results 07/04/23 07/04/23 Range/Units 13:08 14:48 WBC 12.9 H (4.8-10.8) X10*3/uL RBC 5.12 (4.20-5.50) X10*6/uL Hgb 15.7 (12.0-16.0) g/dl Hct 45.6 (37.0-47.0) % MCV 89.1 (80.0-98.0) fL MCH 30.7 (27.0-33.0) pg MCHC 34.4 (31.0-35.0) g/dl RDW 12.1 (11.0-16.0) % Plt Count 328 (160-400) X10*3/uL MPV 9.9 (9.4-12.3) fL Immature Gran % (Auto) 0.5 H (0.0-0.4) % Neut % (Auto) 84.6 H (45-73) % Lymph % (Auto) 8.0 L (20-40) % Dougherty % (Auto) 6.5 (2-11) % Eos % (Auto) 0.2 (0-4) % Baso % (Auto) 0.2 (0-2) % Lymph # (Auto) 1.0 L (1.2-4.9) X10*3/uL [place] # (Auto) 0.8 (0.1-1.2) X10*3/uL Eos # (Auto) 0.0 (0.0-0.4) X10*3/uL Baso # (Auto) 0.0 (0.0-0.2) X10*3/uL Abs Immat Gran (auto) 0.06 H (0.00-0.03) X10*3/uL Absolute Neuts (auto) 10.9 H (2.0-8.3) x10*3/uL Absolute Nucleated RBC 0.000 (0.0-0.012) X10*3/uL Nucleated RBC % (auto) 0.0 (0.0-0.2) /100WBC Sodium 138 (135-145) mmol/L Potassium 4.3 (3.3-5.1) mmol/L Chloride 107 (96-108) mmol/L Carbon Dioxide 23 (22-29) mmol/L Anion Gap 12 (12-20) BUN 13 (9-16) mg/dL Creatinine 0.77 (0.5-1.4) mg/dL Estim Creat Clear Calc 85.4 Estimated GFR > 60 Random Glucose 105 (60-115) mg/dL Calcium 9.9 (8.4-10.2) mg/dL Total Bilirubin 0.6 (0.0-1.0) mg/dL AST 18 (5-31) U/L ALT 17 (0-31) U/L Alkaline Phosphatase 69 (39-117) U/L Total Protein 8.2 H (6.5-8.0) g/dL Albumin 4.7 (3.5-5.0) g/dL Lipase 14 (8-78) U/L Urine Color Yellow Urine Appearance Clear Urine pH 5.5 (5.0-9.0) Ur Specific [place] >= 1.030 H (1.005-1.025) Urine Protein Trace (Neg-Trace) mg/dL Urine Glucose (UA) Negative (Negative) mg/dL Urine Ketones Negative (Negative) mg/dL Urine Blood Negative (Negative) Urine Nitrite Negative (Negative) Ur Leukocyte Esterase Negative (Negative) Urine Test NEGATIVE (NEGATIVE) C. difficile Tox B Gene NEGATIVE (Negative) Independent Interpretation I performed an independent interpretation of an: CT Scan Interpretation: I independently reviewed the CT scan agree with the radiology report Radiology Impression Discussion of test interpretation with radiology: I have reviewed the radiologist's reading. Radiologist Impression: [place] [id number] CT Scan Report Signed Patient: Billie Saunders MR#: [id number] : 1980 Acct:[id number] Age/Sex: 42 / F ADM Date: 07/04/23 Loc: .ED Attending Dr: Ordering Physician: Margy Oconnell NP Date of Service: 07/04/23 Procedure(s): CT abdomen pelvis w IV con Accession Number(s): [id number] cc: Jewels Chou MD; Kourtney,Margy COMPUTER GRAPHIC ARTIST~ EXAMINATION: CT ABDOMEN AND PELVIS WITH CONTRAST CLINICAL INFORMATION: Right abdominal pain and diarrhea. COMPARISON: CT abdomen and pelvis dated 06/04/2023; abdominal ultrasound dated 04/29/2023. TECHNIQUE: Multidetector volumetric images were obtained from the superior aspect of the liver through the pubic symphysis following administration 85 mL of Omnipaque 350 intravenous contrast. Sagittal and coronal reformatted images were obtained on the technologist's workstation. Oral contrast: No This CT examination was performed using dose optimization techniques as appropriate, variously including the following: *Automated exposure control *Adjustment of mA and/or kV according to patient size (this includes techniques or standardized protocols for targeted exams where dose is matched to indication/reason for exam; i.e. extremities or head) *Use of iterative reconstruction technique DLP: 653 mGy-cm FINDINGS: LUNG BASES: There is bibasilar dependent scar/subsegmental atelectasis. LIVER, GALLBLADDER, AND BILIARY TREE: The liver is normal in size, shape, and attenuation. No focal hepatic lesion or biliary ductal dilatation is present. The gallbladder is unremarkable with no evidence of radiopaque gallstones, gallbladder wall thickening, or obvious pericholecystic inflammatory changes. PANCREAS: Unremarkable. SPLEEN: Unremarkable. ADRENAL GLANDS: Unremarkable. KIDNEYS AND URETERS: The kidneys are normal in size, shape, and attenuation. No hydronephrosis, hydroureter, or calculi seen. No perinephric stranding. BLADDER: Unremarkable. GASTROINTESTINAL TRACT: The small and large bowel are unremarkable. The appendix is unremarkable. ABDOMINAL WALL: There is a small fat-containing umbilical hernia. LYMPH NODES: Normal. VASCULAR: Unremarkable. PELVIC VISCERA: The uterus and adnexa are unremarkable. OSSEOUS STRUCTURES: Unremarkable. CT/CT abdomen pelvis w IV con IMPRESSION: A small fat-containing umbilical hernia is seen. The examination is otherwise unremarkable. Fleischner guidelines were followed. Independent Historian Clinical information obtained from an independent historian. History obtained from or confirmed by: Other (sister) External Record Review External record reviewed: Outpatient record Prescription Management I considered prescription management with: Pain Medication and Antibiotic Medications Administered Discontinued Medications Generic Name Dose Route Start Last Admin Trade Name Freq PRN Reason Stop Dose Admin Sodium Chloride 1,000 mls @ 999 mls/hr 07/04/23 14:12 07/04/23 15:55 Ns IV 07/04/23 15:12 Infused .Q1H1M STA Infusion Iohexol 100 ml 07/04/23 15:34 07/04/23 15:34 Iohexol 350 Mg/Ml 100 Ml Infus..Btl IV 07/04/23 15:35 85 ml ONCE ONE Administration Morphine Sulfate 4 mg 07/04/23 14:12 07/04/23 14:54 Morphine Sulfate 4 Mg/Ml Cartridge IVPUSH 07/04/23 14:13 4 mg ONCE ONE Administration Protocol Ondansetron HCl 4 mg 07/04/23 14:12 07/04/23 14:54 Ondansetron Hcl 4 Mg/2 Ml Vial IVPUSH 07/04/23 14:13 4 mg ONCE ONE Administration Discharge Plan Discharge Clinical Impression: Abdominal pain Patient Disposition: Home, Self-Care Instructions: Abdominal Pain (ED) Additional Instructions: Continue with your plan to follow-up with GI. You may need additional outpatient testing done. Your lab work and urine testing was normal here. Her CT does show some mild constipation but otherwise no other finding. We did send stool studies and these results will take 1-2 days to come back. We will call you if they are positive in you require additional treatment. Prescriptions: New dicyclomine 10 mg capsule 10 mg PO QID PRN (Reason: abdominal pain) Qty: 20 0RF ondansetron 4 mg tablet,disintegrating 4 mg PO Q6H PRN (Reason: nausea and vomiting) Qty: 20 0RF No Action lisdexamfetamine [Vyvanse] 70 mg capsule 70 mg PO DAILY tolterodine [Detrol LA] 4 mg capsule,extended release 24hr 4 mg PO DAILY Citrucel 500 mg tablet 500 mg PO DAILY Qty: 30 2RF sennosides [Natural Senna Laxative] 8.6 mg tablet 17.2 mg PO BEDTIME Qty: 60 3RF sertraline 150 mg capsule 150 mg PO DAILY
[2023-07-04 12:54] VITALS: BP 118/89; PULSE 70; RESP 16; TEMP 36.1; O2SAT 99; BMI 26.4
[2023-07-04 13:16] LABS: MANUAL DIFF FLAG NO
[2023-07-04 13:25] LABS: Basophils Percent Auto 0.2 % (0-2); Eosinophils Percent Auto 0.2 % (0-4); Hematocrit 45.6 % (37.0-47.0); Hemoglobin 15.7 g/dl (12.0-16.0); Imm Gran Abs Auto 0.06 X10*3/uL (0.00-0.03); Imm Gran Pct Auto 0.5 % (0.0-0.4); Mean Corpuscular HGB Conc 34.4 g/dl (31.0-35.0); Mean Corpuscular Hemoglobin 30.7 pg (27.0-33.0); Mean Corpuscular Volume 89.1 fL (80.0-98.0); Mean Platelet Volume 9.9 fL (9.4-12.3); Monocytes Absolute Auto 0.8 X10*3/uL (0.1-1.2); Monocytes Percent Auto 6.5 % (2-11); Neutrophils Absolute Auto 10.9 x10*3/uL (2.0-8.3); Neutrophils Percent Auto 84.6 % (45-73); Platelet Count 328 X10*3/uL (160-400); Red Blood Count 5.12 X10*6/uL (4.20-5.50); Red Cell Distribution Width 12.1 % (11.0-16.0); White Blood Count 12.9 X10*3/uL (4.8-10.8)
[2023-07-04 13:28] LABS: Alanine Aminotransferase 17 U/L (0-31); Albumin Level 4.7 g/dL (3.5-5.0); Alkaline Phosphatase 69 U/L (39-117); Anion Gap 12 (12-20); Appearance Urine Clear; Aspartate Amino Transferase 18 U/L (5-31); Bilirubin Total 0.6 mg/dL (0.0-1.0); Blood Urea Nitrogen 13 mg/dL (9-16); Calcium 9.9 mg/dL (8.4-10.2); Carbon Dioxide 23 mmol/L (22-29); Chloride 107 mmol/L (96-108); Color Urine Yellow; Creatinine Clr Calc Pharmacy 85.4; Estimated Glomerular Filt Rate > 60; Glucose Random 105 mg/dL (60-115); Glucose Urine UA Negative (Negative); Leukocyte Esterase Urine Negative (Negative); Lipase 14 U/L (8-78); Nitrite Urine Negative (Negative); PH 5.5 (5.0-9.0); Potassium 4.3 mmol/L (3.3-5.1); Sodium 138 mmol/L (135-145); Specific Gravity - Urine >= 1.030 (1.005-1.025); Total Protein 8.2 g/dL (6.5-8.0); UPreg QC Valid YES; Urine Blood Negative (Negative); Urine Ketones Negative (Negative); Urine Pregnancy NEGATIVE (NEGATIVE); Urine Protein Trace mg/dL (Neg-Trace)
[2023-07-04 14:48] VITALS: BP 120/88; PULSE 62; RESP 16; O2SAT 98
--- OUTSIDE RECORDS SUMMARY | 2023-07-04 14:51 | XMS_ITS | Continuity of Care Document ---
Author Name Unknown Organization [facility] Address [address] [place] [address]- Care Team Providers Care Wage Analyst Name Role Phone Jennifer POWELL, Dominik Pelletier Primary Care Physician [phone] Encounter [facility] [place] Date(s): 09/18/20 - 10/18/20 [facility] [address] [place] [address]- Allergies, Adverse Reactions, Alerts Substance Reaction Severity Status NKA Active Medications sertraline 50 mg oral tablet 1 tablet = 50 mg, By Mouth, Daily, Take 1/2 tab daily x7 days, then increase to full tab (total 50mg), # 30 tablet, 4 Refills, Maintenance, 09/14/20 14:15:00 EST, Tablet, [facility], Partial fill upon patient request if the prescription is for a... Start Date: 09/14/20 Status: Ordered Vistaril pamoate 25 mg oral capsule See Instructions, PRN for anxiety, Take 1 capsule as needed for anxiety, not to exceed 4 times per day, # 30 capsule, 0 Refills, Maintenance, 08/03/20 10:29:00 EST, Capsule, [facility], Partialfill upon patient request, 157, cm, 08/03/20 8:25:0... 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
--- OUTSIDE RECORDS SUMMARY | 2023-07-04 14:51 | XMS_ITS | Continuity of Care Document ---
Author Name Unknown Organization [facility] Address [address] [place] [address]- Care Team Providers Care Ripening Room Operator Name Role Phone Linda YATES, Sara Schuster Primary Care Physician Encounter [facility] [place] Date(s): 06/17/22 - 07/17/22 [facility] [address] [place] [address]- Referring Physician: Ruth Roach Allergies, Adverse Reactions, Alerts No Known Allergies Immunizations Given and Recorded Vaccine Date Status Refusal Reason influenza virus vaccine, inactivated 07/11/21 Give n tetanus/diphtheria/pertussis, acel(Tdap) 07/11/21 Given SARS-CoV-2 (COVID-19) mRNA BNT-162b2 vac 05/23/21 Recorded SARS-CoV-2 (COVID-19) mRNA BNT-162b2 vac 05/02/21 Recorded Medications Diflucan 150 mg oral tablet 1 tablet = 150 mg, By Mouth, Once, # 1 tablet, 0 Refills, Soft Stop, 06/17/22 14:50:00 EDT, Tablet,[facility], Partial fill upon patient request if the prescription is for a schedule II opioiddrug., 158, cm, 06/09/22 11:58:00 EDT, Height Start Date: 06/17/22 Status: Ordered ketorolac 30 mg/mL injectable solution = 30 mg, Intramuscular, Once, Left deltoid [facility] [id number] Lot [id number] Exp 01/2023, # 1 mL, 0 Refills, Maintenance, 06/20/22 12:12:00 EDT, Partial fill upon patient request if the prescription is fora schedule II opioid drug. Start Date: 06/20/22 Status: Ordered sertraline 25 mg oral tablet 1 tablet = 25 mg, By Mouth, Daily, DOSE INCREASE, take with 50mg dose for total of 75mg once daily., # 30 tablet, 3 Refills, Maintenance, 05/30/21 15:28:00 EDT, Tablet, [facility], Partial fillupon patient request if the prescription is for a s... Start Date: 05/30/21 Status: Ordered sertraline 50 mg oral tablet 1 tablet = 50 mg, By Mouth, Daily, # 90 tablet, 1 Refills, Maintenance, 05/30/21 15:27:00 EDT, Tablet, [facility], Partial fill upon patient request if the prescription is for a schedule II opioid drug., 157, cm, 01/14/21 9:03:00 EDT, Height Start Date: 05/30/21 Status: Ordered Problem List Condition Confirmation Course Effective Dates Status Health St atus Informant Eczema Confirmed Active Major depressive disorder, 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 Urinary tract obstruction by kidney stone Confirmed Active Social History Social History Type Response Smoking Status Never (less than 100 in lifetime) entered on: 08/03/20 Sex Patient Care team information Care Team Personnel Name: Sara Mckeon MD Position: [facility] Primary Care Physician Member Role: PCP Address: Address: [address] [place] [id number] Care Team Related Persons Name: ULISSES MOON Address: home [address] [place] [id number] Name: MILLA MOON Address: home [address] [place] [address]
--- OUTSIDE RECORDS SUMMARY | 2023-07-04 14:51 | XMS_ITS | Continuity of Care Document ---
Author Name Unknown Organization [facility] Address [address] [facility] [place] [address]- Care Team Providers Care Criminal Justice Social Worker Name Role Phone Linda YATES, Sara Schuster Primary Care Physician Encounter 11/10/22 - 11/17/22 [facility] [address], [address] [place] [address]- Attending Physician: Alexus POWELL, Antoinette Burgess Admitting Physician: Alexus POWELL, Antoinette Burgess Referring Physician: Alexus POWELL, Antoinette Burgess Allergies, Adverse Reactions, Alerts No Known Allergies Immunizations Given and Recorded Vaccine Date Status Refusal Reason influenza virus vaccine, inactivated 07/11/21 Give n tetanus/diphtheria/pertussis, acel(Tdap) 07/11/21 Given SARS-CoV-2 (COVID-19) mRNA BNT-162b2 vac 05/23/21 Recorded SARS-CoV-2 (COVID-19) mRNA BNT-162b2 vac 05/02/21 Recorded Medications Adderall XR 20 mg oral capsule, extended release 1 capsule = 20 mg, By Mouth, Daily in AM, 0 Refills, Maintenance, 08/04/22 15:51:00 EST, Partial fill upon patient request if the prescription is for a schedule II opioid drug. Start Date: 08/04/22 Status: Ordered Diflucan 150 mg oral tablet 1 tablet = 150 mg, By Mouth, Once, # 1 tablet, 0 Refills, Soft Stop, 06/17/22 14:50:00 EDT, Tablet,[facility], Partial fill upon patient request if the prescription is for a schedule II opioiddrug., 158, cm, 06/09/22 11:58:00 EDT, Height Start Date: 06/17/22 Status: Ordered Effexor XR 37.5 mg oral capsule, extended release 37.5 mg, 1, capsule, By Mouth, Daily, # 30 capsule, Refills 1, Tot. Refills 1, Maintenance, 08/21/22 13:08:00 EST, Route to Pharmacy Electronically, [facility], Partial fill upon patient request if the prescription is for a schedule II opioid dr... Start Date: 08/21/22 Status: Ordered Flomax 0.4 mg oral capsule 0.4 mg, 1, capsule, By Mouth, Daily, # 30 capsule, Refills 1, Tot. Refills 1, Maintenance, 10/09/2310:44:00 EST, Route to Pharmacy Electronically, [facility], Partial fill upon patient requestif the prescription is for a schedule II opioid gabriela... Start Date: 10/09/22 Status: Ordered fluconazole 150 mg oral tablet 1 tablet = 150 mg, By Mouth, Once, epeat dose if still having symptoms in 72 hours, # 2 tablet, 0 Refills, Soft Stop, 10/03/22 16:21:00 EST, Tablet, [facility], Partial fill upon patient request if the prescription is for a schedule II opioid dr... Start Date: 10/03/22 Status: Ordered ketorolac 30 mg/mL injectable solution = 30 mg, Intramuscular, Once, Left deltoid [facility] 59512-184-27 Lot [id number] Exp 01/2023, # 1 mL, 0 Refills, Maintenance, 06/20/22 12:12:00 EDT, Partial fill upon patient request if the prescription is fora schedule II opioid drug. Start Date: 06/20/22 Status: Ordered Probiotic Formula By Mouth, Daily, 0 Refills, Maintenance, 08/04/22 15:52:00 EST, Partial fill upon patient request if the prescription is for a schedule II opioid drug. Start Date: 08/04/22 Status: Ordered sertraline 100 mg oral tablet 1.5 tablet = 150 mg, By Mouth, Daily, # 45 tablet, 0 Refills, Maintenance, 08/21/22 13:06:00 EST, Tablet, Partial fill upon patient request if the prescription is for a schedule II opioid drug. Start Date: 08/21/22 Status: Ordered Tylenol 8 Hour 650 mg oral tablet, extended release 2 tablet = 1,300 mg, By Mouth, Every 8 hours, 0 Refills, Maintenance, 08/04/22 15:52:00 EST, Partial fill upon patient request if the prescription is for a schedule II opioid drug. Start Date: 08/04/22 Status: Ordered Vyvanse 50 mg oral capsule 1 capsule = 50 mg, By Mouth, Daily in AM, 0 Refills, Maintenance, 10/09/22 11:14:00 EST, Partial fill upon patient request if the prescription is for a schedule II opioid drug. 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 Major depressive disorder, recurrent Confirmed Active Urinary tract obstruction by kidney stone Confirmed Active Results Radiology Reports * Exam Date Time Procedure Performing Provider Status 11/10/22 2:59 PM US Breast Right Limited Mckenna Deleon ; Auth (Verified) Notes: (US Breast Right Limited) Reason For Exam: n63.41 RIGHT BREAST MASS UNDER AREOLA INFERIOR TO RIGHT NIPPLE RESULT: US Breast Right Limited PROCEDURE: MM Digital Mammo Bilateral, US Breast Right Limited INDICATION: Right breast palpable lump inferior to the nipple COMPARISON: None TECHNIQUE: Digital diagnostic mammogram consisting of bilateral MLO and cc shane views. FINDINGS: There are scattered fibroglandular densities. There is no suspicious finding in either breast. Targeted ultrasound exam was done of the right breast 6:00. Both the technologist and I scanned thepatient. No suspicious finding was detected. IMPRESSION: No suspicious finding. RECOMMENDATION: Annual mammographic screening BI-RADS: 2 (Benign) Lay letter mailed to patient WSN: [id number] Ordering Physician: Antoinette Vaughan Dictated By: Kimmie Bentley MD Dictated Date/Time: 11/10/22 3:08 pm Reviewed By: Kimmie Bentley MD Signed By: Kimmie Bentley MD Signed Date/Time: 11/10/22 3:08 pm Transcribed By: GLENYS Transcribed Date/Time: 11/10/22 2:57 pm * Exam Date Time Procedure Performing Provider Status 11/10/22 2:34 PM MM Digital Mammo Bilateral Ila Webber; Auth (Verified) Notes: (MM Digital Mammo Bilateral) Reason For Exam: N63.41 RIGHT BREAST MASS SUBAREOLA INTERIOR NIPPLE RESULT: MM Digital Mammo Bilateral PROCEDURE: MM Digital Mammo Bilateral, US Breast Right Limited INDICATION: Right breast palpable lump inferior to the nipple COMPARISON: None TECHNIQUE: Digital diagnostic mammogram consisting of bilateral MLO and cc shane views. FINDINGS: There are scattered fibroglandular densities. There is no suspicious finding in either breast. Targeted ultrasound exam was done of the right breast 6:00. Both the technologist and I scanned thepatient. No suspicious finding was detected. IMPRESSION: No suspicious finding. RECOMMENDATION: Annual mammographic screening BI-RADS: 2 (Benign) Lay letter mailed to patient WSN: [id number] Ordering Physician: Antoinette Vaughan Dictated By: Kimmie Bentley MD Dictated Date/Time: 11/10/22 3:08 pm Reviewed By: Kimmie Bentley MD Signed By: Kimmie Bentley MD Signed Date/Time: 11/10/22 3:08 pm Transcribed By: GLENYS Senior Linux Administrator Date/Time: 11/10/22 2:57 pm Birads: Social History Social History Type Response Smoking Status Never (less than 100 in lifetime) entered on: 08/03/20 Sex US Breast - right limited * [facility] , CIS S: TRANSCRIBE Kimmie Bentley MD: VERIFY Event Display: Result: Authored Date: [id number] PROCEDURE: MM Digital Mammo Bilateral, US Breast Right Limited INDICATION: Right breast palpable lump inferior to the nipple COMPARISON: None TECHNIQUE: Digital diagnostic mammogram consisting of bilateral MLO and cc shane views. FINDINGS: There are scattered fibroglandular densities. There is no suspicious finding in either breast. Targeted ultrasound exam was done of the right breast 6:00. Both the technologist and I scanned thepatient. No suspicious finding was detected. IMPRESSION: No suspicious finding. RECOMMENDATION: Annual mammographic screening BI-RADS: 2 (Benign) Lay letter mailed to patient WSN: [id number] Ordering Physician: Antoinette Vaughan Dictated By: Kimmie Bentley MD Dictated Date/Time: 11/10/22 3:08 pm Reviewed By: Kimmie Bentley MD Signed By: Kimmie Bentley MD Signed Date/Time: 11/10/22 3:08 pm Transcribed By: GLENYS Transcribed Date/Time: 11/10/22 2:57 pm MG Breast - bilateral Views * [facility] , CIS S: TRANSCRIBE Kimmie Bentley MD: VERIFY Event Display: Result: Authored Date: [id number] PROCEDURE: MM Digital Mammo Bilateral, US Breast Right Limited INDICATION: Right breast palpable lump inferior to the nipple COMPARISON: None TECHNIQUE: Digital diagnostic mammogram consisting of bilateral MLO and cc shane views. FINDINGS: There are scattered fibroglandular densities. There is no suspicious finding in either breast. Targeted ultrasound exam was done of the right breast 6:00. Both the technologist and I scanned thepatient. No suspicious finding was detected. IMPRESSION: No suspicious finding. RECOMMENDATION: Annual mammographic screening BI-RADS: 2 (Benign) Lay letter mailed to patient WSN: [id number] Ordering Physician: Antoinette Vaughan Dictated By: Kimmie Bentley MD Dictated Date/Time: 11/10/22 3:08 pm Reviewed By: Kimmie Bentley MD Signed By: Kimmie Bentley MD Signed Date/Time: 11/10/22 3:08 pm Transcribed By: GLENYS Senior Linux Administrator Date/Time: 11/10/22 2:57 pm Birads: Patient Care team information Care Team Personnel Name: Sara Mckeon MD Position: [facility] Primary Care Physician Member Role: PCP Address: Address: [address] [place] [id number] Care Team Related Persons Name: ULISSES MOON Address: home [address] [place] [address] Name: MILLA MOON Address: home [address] [place] [address]
--- OUTSIDE RECORDS SUMMARY | 2023-07-04 14:51 | XMS_ITS | Continuity of Care Document ---
Author Name Unknown Organization [facility] Address [address] [place] [address]- Care Team Providers Care Transportation Maintenance Worker Name Role Phone Jennifer POWELL, Dominik Pelletier Primary Care Physician [phone] Encounter [facility] Date(s): 12/11/20 - 01/10/21 [facility] [address] [place] [address]- Allergies, Adverse Reactions, Alerts Substance Reaction Severity Status NKA Active Medications sertraline 50 mg oral tablet 1 tablet = 50 mg, By Mouth, Daily, Take 1/2 tab daily x7 days, then increase to full tab (total 50mg), # 30 tablet, 4 Refills, Maintenance, 09/14/20 14:15:00 EST, Tablet, [facility], Partial fill upon patient request if the prescription is for a... Start Date: 09/14/20 Status: Ordered Vistaril pamoate 25 mg oral capsule See Instructions, PRN for anxiety, Take 1 capsule as needed for anxiety, not to exceed 4 times per day, # 30 capsule, 0 Refills, Maintenance, 08/03/20 10:29:00 EST, Capsule, [facility], Partialfill upon patient request, 157, cm, 08/03/20 8:25:0... 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
--- OUTSIDE RECORDS SUMMARY | 2023-07-04 14:51 | XMS_ITS | Continuity of Care Document ---
Author Name Unknown Organization [facility] Address [address] [facility], [address] [place] [address]- Care Team Providers Care Computer Science Professor Name Role Phone Linda YATES, Sara Schuster Primary Care Physician Encounter 10/15/22 - 11/27/22 [facility] [address], [address] [place] [address]- Attending Physician: Alexus POWELL, Antoinette Burgess Admitting [...] 08/21/22 13:08:00 EST, Route to Pharmacy Electronically, [facility], Partial fill upon patient request if the prescription is for a schedule II opioid dr... Start Date: 08/21/22 Status: Ordered Flomax 0.4 mg oral capsule 0.4 mg, 1, capsule, By Mouth, Daily, # 30 capsule, Refills 1, Tot. Refills 1, Maintenance, 10/09/2310:44:00 EST, Route to Pharmacy Electronically, [facility], Partial fill upon patient requestif the prescription is for a schedule II opioid gabriela... Start Date: 10/09/22 Status: Ordered fluconazole 150 mg oral tablet 1 tablet = 150 mg, By Mouth, Once, epeat dose if still having symptoms in 72 hours, # 2 tablet, 0 Refills, Soft Stop, 10/03/22 16:21:00 EST, Tablet, [facility], Partial fill upon patient request if the prescription is for a schedule II opioid dr... Start Date: 10/03/22 Status: Ordered ketorolac 30 mg/mL injectable solution = 30 mg, Intramuscular, Once, Left deltoid [facility] 28709-554-26 Lot [id number] Exp 01/2023, # 1 mL, 0 Refills, [...] Team Personnel Name: Sara Mckeon MD Position: [facility] Primary Care Physician Member Role: PCP Address: Address: [address] [place] [address] [place], [place] [address] Care Team Related Persons Name: ULISSES MOON Address: home [address] [place] [id number] Name: MILLA MOON Address: home [address] [place] [id number]
--- OUTSIDE RECORDS SUMMARY | 2023-07-04 14:52 | XMS_ITS | Continuity of Care Document ---
Author Name Unknown Organization [facility] Address [address] [place] [address]- Care Team Providers Care Security Systems Integrator Name Role Phone Linda YATES, Sara Schuster Primary Care Physician Encounter [place] Date(s): 07/01/22 - 07/31/22 [facility] [address] [place] [address]- Allergies, Adverse Reactions, Alerts No Known Allergies [...] = 30 mg, Intramuscular, Once, Left deltoid [facility] [id number] Lot [id number] Exp 01/2023, # 1 mL, 0 Refills, [...] 3 Refills, Maintenance, 05/30/21 15:28:00 EDT, Tablet, [facility], Partial fillupon patient request if the prescription is for a s... Start Date: 05/30/21 Status: Ordered sertraline 50 mg oral tablet 1 tablet = 50 mg, By Mouth, Daily, # 90 tablet, 1 Refills, Maintenance, 05/30/21 15:27:00 EDT, Tablet, [facility], Partial fill upon patient request if [...] Team Personnel Name: Sara Mckeon MD Position: [facility] Primary Care Physician Member Role: PCP Address: Address: [address] [place] [address]- Care Team Related Persons Name: ULISSES MOON Address: home [address] [place] [address] Name: MILLA MOON Address: home [address] [place] [address]
--- OUTSIDE RECORDS SUMMARY | 2023-07-04 14:52 | XMS_ITS | Continuity of Care Document ---
Author Name Unknown Organization [facility] Address [address] [place] [address]- Care Team Providers Care Trouble Shooter Name Role Phone Sara Mckeon MD Primary Care Physician Encounter [facility] Date(s): 10/06/22 - 11/05/22 [facility] [address] [place] [address]- Allergies, Adverse Reactions, Alerts No Known Allergies [...] 08/21/22 13:08:00 EST, Route to Pharmacy Electronically, [facility], Partial fill upon patient request if the prescription is for a schedule II opioid dr... Start Date: 08/21/22 Status: Ordered Flomax 0.4 mg oral capsule 0.4 mg, 1, capsule, By Mouth, Daily, # 30 capsule, Refills 1, Tot. Refills 1, Maintenance, 10/09/2310:44:00 EST, Route to Pharmacy Electronically, [facility], Partial fill upon patient requestif the prescription is for a schedule II opioid gabriela... Start Date: 10/09/22 Status: Ordered fluconazole 150 mg oral tablet 1 tablet = 150 mg, By Mouth, Once, epeat dose if still having symptoms in 72 hours, # 2 tablet, 0 Refills, Soft Stop, 10/03/22 16:21:00 EST, Tablet, [facility], Partial fill upon patient request if the prescription is for a schedule II opioid dr... Start Date: 10/03/22 Status: Ordered ketorolac 30 mg/mL injectable solution = 30 mg, Intramuscular, Once, Left deltoid [facility] 40593-619-74 Lot [id number] Exp 01/2023, # 1 mL, 0 Refills, [...] Team Personnel Name: Sara Mckeon MD Position: [facility] Primary Care Physician Member Role: PCP Address: Address: [address] [place] [address]- Care Team Related Persons Name: ULISSES MOON Address: home [address] [place] [address] Name: MILLA MOON Address: home [address] [place] [address]
--- OUTSIDE RECORDS SUMMARY | 2023-07-04 14:52 | XMS_ITS | Continuity of Care Document ---
Author Name Unknown Organization [facility] Address [address] [place] [address]- Care Team Providers Care Aviation Tactical Readiness Officer Name Role Phone Sara Mckeon MD Primary Care Physician En[place] [facility] Date(s): 01/19/23 - 02/18/23 [facility] [address] [place] [address]- Allergies, Adverse Reactions, Alerts No Known Allergies [...] opioid drug. Start Date: 08/04/22 Status: Ordered amitriptyline 25 mg oral tablet 25 mg, 1, tablet, By Mouth, Daily at bedtime, 1/2 tab tonight, 1 tab nightly thereafter, # 30 tablet, Refills 1, Tot. Refills 1, Maintenance, 12/18/22 15:15:00 EDT, Route to Pharmacy Electronically, [facility], Partial fill upon patient request... Start Date: 12/18/22 Status: Ordered Cipro 250 mg oral tablet 1 tablet = 250 mg, By Mouth, Every 12 hours, 0 Refills, Maintenance, 12/12/22 9:46:00 EDT, Partial fill upon patient request if the prescription is for a schedule II opioid drug. Start Date: 12/12/22 Status: Ordered Diflucan 150 mg oral tablet 1 tablet = 150 mg, By Mouth, Once, # 1 tablet, 0 Refills, Soft Stop, 06/17/22 14:50:00 EDT, Tablet,[facility], Partial [...] = 30 mg, Intramuscular, Once, Left deltoid [facility] 98164-280-68 Lot [id number] Exp 01/2023, # 1 mL, 0 Refills, [...] 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 Migraine Confirmed Active Major depressive disorder, recurrent Confirmed Active Urinary tract obstruction by kidney stone Confirmed Active Social History Social History Type Response Smoking Status Never (less than 100 in lifetime) entered on: 08/03/20 Sex Patient Care team information Care Team Personnel Name: Sara Mckeon MD Position: S Physician - Primary Care Member Role: PCP Address: Address: [address] [place] [id number] Care Team Related Persons Name: ULISSES MOON Address: home [address] [place] [address] Name: MILLA MOON Address: home [address] [place] [address]
--- OUTSIDE RECORDS SUMMARY | 2023-07-04 14:52 | XMS_ITS | Continuity of Care Document ---
Author Name Unknown Organization [facility] Address [address] [place] [address]- Care Team Providers Care Chief Ultrasound Technologist Name Role Phone Sara Mckeon MD Primary Care Physician Encounter [facility] Date(s): 06/20/22 - 06/27/22 [facility] [address] [place] [address]- Encounter Diagnosis Urinary tract obstruction by kidney stone(Discharge Diagnosis) - 06/20/22 Attending Physician: Nupur YATES, Whit Marquez Allergies, Adverse Reactions, Alerts No Known Allergies [...] mg, Intramuscular, Once, Left deltoid [facility] 97215-705-02 Lot [id number] Exp 01/2023, # 1 mL, 0 Refills, [...] 1 Refills, Maintenance, 05/30/21 15:27:00 EDT, Tablet, [facility], Partial fill upon patient request if the prescription is for a schedule II opioid drug., 157, cm, 01/14/21 9:03:00 EDT, Height Start Date: 05/30/21 Status: Ordered Problem List Condition Confirmation Course Effective Dates Status Health St atus Informant Eczema Confirmed Active Major depressive disorder, 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 Urinary tract obstruction by kidney stone Confirmed Active Diagnosis Diagnosis Type Effective Dates Health Status Clinical Service Informant Urinary tract obstruction by kidney stone Discharge Diagnosis 06/20/22 Vital Signs Most recent to oldest [Reference Range]: 1 Height 158 cm (06/20/22 11:15 AM) Oxygen Saturation [94-100 %] 98 % (06/20/22 11:15 AM) Pulse Rate [55-90 bpm] 64 bpm (06/20/22 11:15 AM) Blood Pressure [90-138/55-84 mm Hg] 92/7 0mm Hg (06/20/22 11:15 AM) Temperature [96.8-100.4 DegF] 97.7 DegF (06/20/22 11:15 AM) Mode of Delivery (Oxygen) Room air (06/20/22 11:15 AM) Blood pressure sites Arm, left (06/20/22 11:15 AM) Social History Social History Type Response Smoking Status Never (less than 100 in lifetime) entered on: 08/03/20 Sex Patient Care team information Personnel Name: Linda YATES, Sara Schuster Address: Address: [address] [place] [address]
--- OUTSIDE RECORDS SUMMARY | 2023-07-04 14:52 | XMS_ITS | Continuity of Care Document ---
Author Name Unknown Organization [facility] Address [address] [place] [address]- Care Team Providers Care Business Assistant Name Role Phone Linda YATES, Sara Schuster Primary Care Physician Encounter [facility] Date(s): 06/14/22 - 07/14/22 [facility] [address] [place] [address]- Allergies, Adverse Reactions, Alerts No Known Allergies [...] = 30 mg, Intramuscular, Once, Left deltoid [facility] 51578-890-93 Lot [id number] Exp 01/2023, # 1 mL, 0 Refills, [...] tablet, 3 Refills, Maintenance, 05/30/21 15:28:00 EDT, [facility], Partial fillupon patient request if the prescription is for a s... Start Date: 05/30/21 Status: Ordered sertraline 50 mg oral tablet 1 tablet = 50 mg, By Mouth, Daily, # 90 tablet, 1 Refills, Maintenance, 05/30/21 15:27:00 EDT, Tablet, [facility], Partial fill upon patient request if [...] Team Personnel Name: Sara Mckeon MD Position: [facility] Primary Care Physician Member Role: PCP Address: Address: [address] [place] [address]- Care Team Related Persons Name: ULISSES MOON Address: [address] [place] [address] Name: MILLA MOON Address: [address] [place] [address]
--- OUTSIDE RECORDS SUMMARY | 2023-07-04 14:52 | XMS_ITS | Continuity of Care Document ---
Author Name Unknown Organization [facility] Address [address] [place] [address]- Care Team Providers Care Chief Technician X Ray Name Role Phone Sara Mckeon MD Primary Care Physician [place] [facility] [place] 10/09/22 - 11/08/22 [facility] [address] [place] [address]- Attending Physician: Adeline Deluca Admitting Physician: AdmtrAdeline Referring Physician: Admtr, Ar8 Allergies, Adverse Reactions, Alerts No Known Allergies [...] Route to Pharmacy Electronically, [facility], Partial fill upon patient request if the prescription is for a schedule II opioid dr... Start Date: 08/21/22 Status: Ordered Flomax 0.4 mg oral capsule 0.4 mg, 1, capsule, By Mouth, Daily, # 30 capsule, Refills 1, Tot. Refills 1, Maintenance, 10/09/2310:44:00 EST, Route to Pharmacy Electronically, [facility], Partial fill upon patient requestif the prescription is for a schedule II opioid gabriela... Start Date: 10/09/22 Status: Ordered fluconazole 150 mg oral tablet 1 tablet = 150 mg, By Mouth, Once, epeat dose if still having symptoms in 72 hours, # 2 tablet, 0 Refills, Soft Stop, 10/03/22 16:21:00 EST, Tablet, [facility], Partial fill upon patient request if the prescription is for a schedule II opioid dr... Start Date: 10/03/22 Status: Ordered ketorolac 30 mg/mL injectable solution = 30 mg, Intramuscular, Once, Left deltoid [facility] [id number] Lot [id number] Exp 01/2023, # 1 mL, 0 Refills, [...] 100 in lifetime) entered on: 08/03/20 Sex Note * Event Display: Laboratory Result Scanned Authored Date: [id number] * Maite Rivers: PERFORM Event Display: Laboratory Results Scanned Authored Date: [id number] * Lamine Reyes: PERFORM Event Display: Laboratory Results Scanned Authored Date: [id number] Patient Care team information Care Team Personnel Name: Sara Mckeon MD Position: [facility] Primary Care Physician Member Role: PCP Address: Address: [address] [place] [address]- Care Team Related Persons Name: ULISSES MOON Address: home [address] [place] [address] Name: MILLA MOON Address: home [address] [place] [address]
--- OUTSIDE RECORDS SUMMARY | 2023-07-04 14:52 | XMS_ITS | Continuity of Care Document ---
Author Name Unknown Organization [facility] Address [address] [place] [address]- Care Team Providers Care Solar Applications Development Engineer Name Role Phone Jennifer POWELL, Dominik Pelletire Primary Care Physician [phone] [place] [facility] [place] 10[place]22[place]20 [place] 10/29/20 [facility] [address] [place] [address]- Encounter Diagnosis Major depressive disorder, single episode with atypical features(Discharge Diagnosis) - 10/23/20 Attending Physician: Dominik Rodriguez NP Allergies, Adverse Reactions, Alerts Substance Reaction Severity Status NKA Active Medications sertraline 50 mg oral tablet 1 tablet = 50 mg, By Mouth, Daily, Take 1/2 tab daily x7 days, then increase to full tab (total 50mg), # 30 tablet, 4 Refills, Maintenance, 09/14/20 14:15:00 EST, Tablet, [facility], Partial fill upon patient request if the prescription is for a... Start Date: 09/14/20 Status: Ordered Vistaril pamoate 25 mg oral capsule See Instructions, PRN for anxiety, Take 1 capsule as needed for anxiety, not to exceed 4 times per day, # 30 capsule, 0 Refills, Maintenance, 08/03/20 10:29:00 EST, Capsule, [facility], Partialfill upon patient request, 157, cm, 08/03/20 8:25:0... Start Date: 08/03/20 Status: Ordered Problem List Condition Effective Dates Status Health Status Inform ant Eczema(Confirmed) Active Major depressive disorder, s jayla episode with atypical features(Confirmed) Active Diagnosis Diagnosis Type Effective Dates Health Status Clinical Service Informant Major depressive disorder, single episode with atypical features Discharge Diagnosis 10/23/20 Vital Signs Most recent to oldest [Reference Range]: 1 Height 157 cm (10/22/20 9:25 AM) Social History Social History Type Response Smoking Status Never (less than 100 in lifetime) entered on: 08/03/20 Sex
--- OUTSIDE RECORDS SUMMARY | 2023-07-04 14:52 | XMS_ITS | Continuity of Care Document ---
Author Name Unknown Organization [facility] Address [address] [place] [address]- Care Team Providers Care Air Quality Consultant Name Role Phone Sara Mckeon MD Primary Care Physician [place] [facility] [place] 01/08/23 - 01/15/23 [facility] [address] [place] [address]- Encounter Diagnosis Interstitial cystitis(Discharge Diagnosis) - 01/10/23 Chronic bilateral lower abdominal pain(Discharge Diagnosis) - 01/10/23 Neck muscle spasm(Discharge Diagnosis) - 01/10/23 Attending Physician: Sara Mckeon MD Allergies, Adverse Reactions, Alerts No Known Allergies [...] 12/18/22 15:15:00 EDT, Route to Pharmacy Electronically, [facility], Partial fill upon patient request... Start Date: 12/18/22 Status: Ordered Cipro 250 mg oral tablet 1 tablet = 250 mg, By Mouth, Every 12 hours, 0 Refills, Maintenance, 12/12/22 9:46:00 EDT, Partial fill upon patient request if the prescription is for a schedule II opioid drug. Start Date: 12/12/22 Status: Ordered cyclobenzaprine 10 mg oral tablet 10 mg, 1, tablet, By Mouth, Daily at bedtime, # 14 tablet, Refills 1, Tot. Refills 1, Acute 02/08/23 11:13:00 EDT, 01/08/23 11:12:00 EDT, Route to Pharmacy Electronically, [facility], Partial fill upon patient request if the prescription is for... Start Date: 01/08/23 Stop Date: 02/08/23 Status: Ordered Diflucan 150 mg oral tablet 1 tablet = 150 mg, By Mouth, Once, # 1 tablet, 0 Refills, Soft Stop, 06/17/22 14:50:00 EDT, Tablet,[facility], Partial fill upon patient request if the prescription is for a schedule II opioiddrug., 158, cm, 06/09/22 11:58:00 EDT, Height Start Date: 06/17/22 Status: Ordered Effexor XR 37.5 mg oral capsule, extended release 37.5 mg, 1, capsule, By Mouth, Daily, # 30 capsule, Refills 1, Tot. Refills 1, Maintenance, 08/21/22 13:08:00 EST, Route to Pharmacy Electronically, [facility], Partial fill upon patient request if the prescription is for a schedule II opioid dr... Start Date: 08/21/22 Status: Ordered Flomax 0.4 mg oral capsule 0.4 mg, 1, capsule, By Mouth, Daily, # 30 capsule, Refills 1, Tot. Refills 1, Maintenance, 10/09/2310:44:00 EST, Route to Pharmacy Electronically, [facility], Partial fill upon patient requestif the prescription is for a schedule II opioid gabriela... Start Date: 10/09/22 Status: Ordered fluconazole 150 mg oral tablet 1 tablet = 150 mg, By Mouth, Once, epeat dose if still having symptoms in 72 hours, # 2 tablet, 0 Refills, Soft Stop, 10/03/22 16:21:00 EST, Tablet, [facility], Partial fill upon patient request if the prescription is for a schedule II opioid . Start Date: 10/03/22 Status: Ordered ketorolac 30 mg/mL injectable solution = 30 mg, Intramuscular, Once, Left deltoid [facility] [id number] Lot [id number] Exp 01/2023, # 1 mL, 0 Refills, [...] Effective Dates Health Status Clinical Service Informant Interstitial cystitis Discharge Diagnosis 01/10/23 Chronic bilateral lower abdominal pain Discharge Diagnosis 01/10/23 Neck muscle spasm Discharge Diagnosis 5/6/23 Vital Signs Most recent to oldest [Reference Range]: 1 Height 158 cm (01/08/23 10:28 AM) Weight 68.2 kg (01/08/23 10:28 AM) Oxygen Saturation [94-100 %] 99 % (01/08/23 10:28 AM) Pulse Rate [55-90 bpm] 83 bpm (01/08/23 10:28 AM) Body Mass Index [18.5-24.99 kg/m2] 27.32 kg/m2 *H* (01/08/23 10:28 AM) Blood Pressure [90-138/55-84 mm Hg] 119/ 88mm Hg (01/08/23 10:28 AM) Blood pressure sites Arm, left (01/08/23 10:28 AM) Social History Social History Type Response Smoking Status Never (less than 100 in lifetime) entered on: 08/03/20 Sex Note * Taya Cage: PERFORM, SIGN, VERIFY Event Display: Patient Education/Instruction Authored Date: [id number] [facility] Clinical Summary Name PATRIC MOON Age 42 Years 1980 PCP Linda YATES, Sara Schuster PCP Visit Date 01/08/2023 10:20:00 Additional Instructions: Scheduled Appointments?? Future Appointments ?ANSHUL[facility] [address]??[place],??[place],??[address] ?Phone:??[phone]?Fax:??-- ?Appt. Date:??08/18/2023?10:15 AM ?Scheduled Provider:??ANSHUL N[facility] 1 ?ANSHUL[address] [address]??[place],??[place],??[address] ?Phone:??[phone]?Fax:??-- ?Appt. Date:??11/13/2023?9:45 AM ?Scheduled Provider:??AN[facility] [place] 1 Follow-Up Instructions ?? Diagnosis Medications: Please continue your medications until treatment is completed or stopped by your provider. Discuss any questions related to medications with your provider. New Medications [facility], [address] [place] [phone], [phone] Cyclobenzaprine (cyclobenzaprine 10 mg oral tablet) 1 tab(s) Oral Daily at Bedtime. Refills: 1. Next Dose: Medications to Continue with No Changes These medications were not printed or sent to your pharmacy Acetaminophen (Tylenol 8 Hour 650 mg oral tablet, extended release) 2 tab(s) Oral every 8 hours. Next Dose: amiTRIPTYLINE (amitriptyline 25 mg oral tablet) 1 tab(s) Oral Daily at Bedtime. 1/2 tab tonight, 1 tab nightly thereafter. Refills: 1. Next Dose: Amphetamine-Dextroamphetamine (Adderall XR 20 mg oral capsule, extended release) 1 capsule Oral Daily in the morning. Next Dose: bifidobacterium-lactobacillus (Probiotic Formula) Oral Daily. Next Dose: Ciprofloxacin (Cipro 250 mg oral tablet) 1 tab(s) Oral every 12 hours. Next Dose: Fluconazole (Diflucan 150 mg oral tablet) 1 tab(s) Oral once. Refills: 0. Next Dose: Fluconazole (fluconazole 150 mg oral tablet) 1 tab(s) Oral once. epeat dose if still having symptoms in 72 hours. Refills: 0. Next Dose: Ketorolac (ketorolac 30 mg/mL injectable solution) 30 Milligram Intramuscular once. Left deltoid [facility] 44748-053-27 Lot [id number] Exp 01/2023. Next Dose: lisdexamfetamine (Vyvanse 50 mg oral capsule) 1 capsule Oral Daily in the morning. Next Dose: Sertraline (sertraline 100 mg oral tablet) 1.5 tab(s) Oral Daily. Refills: 0. Next Dose: Tamsulosin (Flomax 0.4 mg oral capsule) 1 capsule Oral Daily. Refills: 1. Next Dose: Venlafaxine (Effexor XR 37.5 mg oral capsule, extended release) 1 capsule Oral Daily. Refills: 1. Next Dose: Allergy Info:?? NKA Medications Given This Visit Future Orders ?No future orders Vital Signs Height 158 cm Weight 68.2 kg BMI 27.32 kg/m2 Blood Pressure 119 mm Hg/88 mm Hg Temperature Pulse Rate 83 bpm Respiratory Rate 02 Sat Mode of Delivery 99 %/ You can now view a summary of your hospital visit from the comfort of your home through a free online portal called [employer]. [employer] is a website that allows you to securely view your medical information including discharge summary, medications and follow-up visits. ??You can alsosend a secure electronic message to your doctor???s office to request appointments, renew medications or just ask a question. You can enroll at [email or web address] or register during your next office visit. Disclaimer:?? The information provided is of a general nature and is intended to be used in conjunction with the recommendations and advice of your health care practitioner. ??Every effort has been made to ensure that the information provided is accurate and complete at the time it is provided to you however, as your needs change, or, as new ??information becomes available, different or additional instructions may be required. If you have questions, please consult with your primary care provider or pharmacist, as appropriate. ??This information is not intended to serve as substitution for assessment and evaluation by a qualified health care provider. If you do not have a primary care provider, you may find a [facility] provider by calling [facility] [employer] at [phone]. For information about the plan of care including goals and instructions for your diagnosis, please see the patient education orders section of this document. Patient Education Materials?? The content of this educational material or handout may have been modified, supplemented, or adapted from its original content and format to support your individualized medical care. Patient Care team information Care Team Personnel Name: Sara Mckeon MD Position: [facility] Primary Care Physician Member Role: PCP Address: Address: [address] [place] [address] [place] [address] Care Team Related Persons Name: ULISSES MOON Address: home [address] [place] [address] Name: MILLA MOON Address: home [address] [place] [address]
--- OUTSIDE RECORDS SUMMARY | 2023-07-04 14:52 | XMS_ITS | Continuity of Care Document ---
Author Name Unknown Organization [facility] Address [address] [place] [address]- Care Team Providers Care Global Commodity Manager Name Role Phone Sara Mckeon MD Primary Care Physician Encounter [facility] Date(s): 01/26/23 - 02/25/23 [facility] [address] [place] [address]- Allergies, Adverse Reactions, Alerts No Known Allergies [...] 12/18/22 15:15:00 EDT, Route to Pharmacy Electronically, [facility], Partial fill upon patient request... [...] 0 Refills, Soft Stop, 06/17/22 14:50:00 EDT, Tablet,[facility], Partial fill upon patient request if the prescription is for a schedule II opioiddrug., 158, cm, 06/09/22 11:58:00 EDT, Height Start Date: 06/17/22 Status: Ordered Effexor XR 37.5 mg oral capsule, extended release 37.5 mg, 1, capsule, By Mouth, Daily, # 30 capsule, Refills 1, Tot. Refills 1, Maintenance, 08/21/22 13:08:00 EST, Route to Pharmacy Electronically, [facility], Partial fill upon patient request if the prescription is for a schedule II opioid dr... Start Date: 08/21/22 Status: Ordered Flomax 0.4 mg oral capsule 0.4 mg, 1, capsule, By Mouth, Daily, # 30 capsule, Refills 1, Tot. Refills 1, Maintenance, 10/09/2310:44:00 EST, Route to Pharmacy Electronically, [facility], Partial fill upon patient requestif the prescription is for a schedule II opioid gabriela... Start Date: 10/09/22 Status: Ordered fluconazole 150 mg oral tablet 1 tablet = 150 mg, By Mouth, Once, epeat dose if still having symptoms in 72 hours, # 2 tablet, 0 Refills, Soft Stop, 10/03/22 16:21:00 EST, Tablet, [facility], Partial fill upon patient request if the prescription is for a schedule II opioid dr... Start Date: 10/03/22 Status: Ordered ketorolac 30 mg/mL injectable solution = 30 mg, Intramuscular, Once, Left deltoid [facility] 24735-165-96 Lot [id number] Exp 01/2023, # 1 mL, 0 Refills, [...] Primary Care Member Role: PCP Address: Address: [address] [place] [id number] Care Team Related Persons Name: ULISSES MOON Address: home [address] [place] [address] Name: MILLA MOON Address: home [address] [place] [address]
--- OUTSIDE RECORDS SUMMARY | 2023-07-04 14:52 | XMS_ITS | Continuity of Care Document ---
Author Name Unknown Organization [facility] Address [address] [place] [address]- Care Team Providers Care Uniform Room Attendant Name Role Phone Sara Mckeon MD Primary Care Physician [place] [facility] [place] 09/07/22 [facility] [address] [place] [address]- Allergies, Adverse Reactions, Alerts No Known Allergies [...] capsule, Refills 1, Tot. Refills 1, Maintenance, 12/15/22 13:08:00 EST, Route to Pharmacy Electronically, [facility], Partial fill upon patient request if the prescription is for a schedule II opioid . Start Date: 08/21/22 Status: Ordered ketorolac 30 mg/mL injectable solution = 30 mg, Intramuscular, Once, Left deltoid [facility] [id number] Lot [id number] Exp 01/2023, # 1 mL, 0 Refills, [...] opioid drug. Start Date: 08/04/22 Status: Ordered Problem List Condition Confirmation Course [...] Team Personnel Name: Sara Mckeon MD Position: [facility] Primary Care Physician Member Role: PCP Address: Address: [address] [place] [address]- Care Team Related Persons Name: ULISSES MOON Address: home [address] [place] [id number] Name: MILLA MOON Address: home [address] [place] [address]
--- OUTSIDE RECORDS SUMMARY | 2023-07-04 14:52 | XMS_ITS | Continuity of Care Document ---
Author Name Unknown Organization [facility] Address [address] [place] [address]- Care Team Providers Care Payloader Machine Operator Name Role Phone Sara Mckeon MD Primary Care Physician [place] [facility] [place] 01/21/23 - 02/20/23 [facility] [address] [place] [address]- Allergies, Adverse Reactions, Alerts No Known Allergies [...] 12/18/22 15:15:00 EDT, Route to Pharmacy Electronically, [facility], Partial fill upon patient [...] 0 Refills, Soft Stop, 06/17/22 14:50:00 EDT, Tablet,[facility], Partial fill upon patient request if the prescription is for a schedule II opioiddrug., 158, cm, 06/09/22 11:58:00 EDT, Height Start Date: 06/17/22 Status: Ordered Effexor XR 37.5 mg oral capsule, extended release 37.5 mg, 1, capsule, By Mouth, Daily, # 30 capsule, Refills 1, Tot. Refills 1, Maintenance, 08/21/22 13:08:00 EST, Route to Pharmacy Electronically, [facility], Partial fill upon patient request if the prescription is for a schedule II opioid dr... Start Date: 08/21/22 Status: Ordered Flomax 0.4 mg oral capsule 0.4 mg, 1, capsule, By Mouth, Daily, # 30 capsule, Refills 1, Tot. Refills 1, Maintenance, 10/09/2310:44:00 EST, Route to Pharmacy Electronically, [facility], Partial fill upon patient requestif the prescription is for a schedule II opioid gabriela... Start Date: 10/09/22 Status: Ordered fluconazole 150 mg oral tablet 1 tablet = 150 mg, By Mouth, Once, epeat dose if still having symptoms in 72 hours, # 2 tablet, 0 Refills, Soft Stop, 10/03/22 16:21:00 EST, Tablet, [facility], Partial fill upon patient request if the prescription is for a schedule II opioid dr... Start Date: 10/03/22 Status: Ordered ketorolac 30 mg/mL injectable solution = 30 mg, Intramuscular, Once, Left deltoid [facility] [id number] Lot [id number] Exp 01/2023, # 1 mL, 0 Refills, [...] Primary Care Member Role: PCP Address: Address: [address] [place] [id number] Care Team Related Persons Name: ULISSES MOON Address: home [address] [place] [address] Name: MILLA MOON Address: home [address] [place] [address]
--- OUTSIDE RECORDS SUMMARY | 2023-07-04 14:52 | XMS_ITS | Continuity of Care Document ---
Author Name Unknown Organization [facility] Address [address] [place] [address]- Care Team Providers Care Manager Of Photography Name Role Phone Jennifer POWELL, Dominik Pelletier Primary Care Physician [phone] [id number] Date(s): 12/12/20 - 12/19/20 [facility] [address] [place] [address]- Encounter Diagnosis Ear itching(Discharge Diagnosis) - 12/13/20 Attending Physician: Chrissy YATES, Harry Marquez Referring Physician: Dominik Rodriguez NP Allergies, Adverse Reactions, Alerts Substance Reaction Severity Status NKA Active Medications sertraline 50 mg oral tablet 1 tablet = 50 mg, By Mouth, Daily, Take 1/2 tab daily x7 days, then increase to full tab (total 50mg), # 30 tablet, 4 Refills, Maintenance, 09/14/20 14:15:00 EST, Tablet, [facility], Partial fill upon patient request if [...] Diagnosis Diagnosis Type Effective Dates Health Status Clini lionel Service Informant Ear itching Discharge Diagnosis 12/13/20 Vital Signs Most recent to oldest [Reference Range]: 1 Height 157 cm (12/12/20 2:54 PM) Oxygen Saturation [94-100 %] 96 % (12/12/20 2:54 PM) Pulse Rate [55-90 bpm] 91 bpm *H* (12/12/20 2:54 PM) Blood Pressure [90-138/55-84 mm Hg] 129/ 89mm Hg (12/12/20 2:54 PM) Respiratory Rate [16-30 br/min] 20 br/mi n (12/12/20 2:54 PM) Blood pressure sites Arm, right (12/12/20 2:54 PM) Social History Social History Type Response Smoking Status Never (less than 100 in lifetime) entered on: 08/03/20 Sex
--- OUTSIDE RECORDS SUMMARY | 2023-07-04 14:52 | XMS_ITS | Continuity of Care Document ---
Author Name Unknown Organization [facility] Address [address] [place] [address]- Care Team Providers Care Stallion Manager Name Role Phone Sara Mckeon MD Primary Care Physician En[place] [facility] [place](s[place] 12/12/22 - 12/19/22 [facility] [address] [place] [address]- Attending Physician: Sara Mckeon MD Allergies, Adverse [...] opioid drug. Start Date: 12/12/22 Status: Ordered Cipro 500 mg oral tablet 1 tablet = 500 mg, By Mouth, Every 12 hours, for 10 days, # 20 tablet, 0 Refills, Acute 12/22/22 10:03:00 EDT, 12/12/22 10:03:00 EDT, Tablet, [facility], Partial fill upon patient request if the prescription is for a schedule II opioid drug., 15... Start Date: 12/12/22 Stop Date: 12/22/22 Status: Ordered Diflucan 150 mg oral tablet 1 tablet = 150 mg, By Mouth, Once, # 1 tablet, 0 Refills, Soft Stop, 06/17/22 14:50:00 EDT, Tablet,[facility], Partial fill upon patient request if the prescription is for a schedule II opioiddrug., 158, cm, 06/09/22 11:58:00 EDT, Height Start Date: 06/17/22 Status: Ordered Effexor XR 37.5 mg oral capsule, extended release 37.5 mg, 1, capsule, By Mouth, Daily, # 30 capsule, Refills 1, Tot. Refills 1, Maintenance, 08/21/22 13:08:00 EST, Route to Pharmacy Electronically, [facility], Partial fill upon patient request if the prescription is for a schedule II opioid dr... Start Date: 08/21/22 Status: Ordered Flomax 0.4 mg oral capsule 0.4 mg, 1, capsule, By Mouth, Daily, # 30 capsule, Refills 1, Tot. Refills 1, Maintenance, 10/09/2310:44:00 EST, Route to Pharmacy Electronically, [facility], Partial fill upon patient requestif the prescription is for a schedule II opioid gabriela... Start Date: 10/09/22 Status: Ordered fluconazole 150 mg oral tablet 1 tablet = 150 mg, By Mouth, Once, epeat dose if still having symptoms in 72 hours, # 2 tablet, 0 Refills, Soft Stop, 10/03/22 16:21:00 EST, Tablet, [facility], Partial fill upon patient request if the prescription is for a schedule II opioid dr... Start Date: 10/03/22 Status: Ordered ketorolac 30 mg/mL injectable solution = 30 mg, Intramuscular, Once, Left deltoid [facility] 77377-655-87 Lot [id number] Exp 01/2023, # 1 mL, 0 Refills, [...] List Condition Confirmation Course Effective Dates Status [facility] atus Informant Eczema Confirmed Active Retinal hemorrhage, right Confirmed Active Major depressive disorder, 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 Migraine Confirmed Active Major depressive disorder, recurrent Confirmed Active Urinary tract obstruction by kidney stone Confirmed Active Vital Signs Most recent to oldest [Reference Range]: 1 Height 158 cm (12/12/22 9:41 AM) Weight 68.2 kg (12/12/22 9:41 AM) Oxygen Saturation [94-100 %] 96 % (12/12/22 9:41 AM) Pulse Rate [55-90 bpm] 91 bpm *H* (12/12/22 9:41 AM) Body Mass Index [18.5-24.99 kg/m2] 27.32 kg/m2 *H* (12/12/22 9:41 AM) Blood Pressure [90-138/55-84 mm Hg] 123/ 83mm Hg (12/12/22 9:41 AM) Blood pressure sites Arm, left (12/12/22 9:41 AM) Social History Social History Type Response Smoking Status Never (less than 100 in lifetime) entered on: 08/03/20 Sex Note * Isabella Britton: PERFORM, SIGN, VERIFY Event Display: Patient Education/Instruction Authored Date: [id number] [facility] Clinical Summary Name PATRIC MOON Age 41 Years 1980 PCP Linda YATES, Sara Schuster PCP Visit Date 12/12/2022 09:35:00 Additional Instructions: Scheduled Appointments?? Future Appointments ?ANSHUL[facility] [address]??[place],??[place],??[address] ?Phone:??[phone]?Fax:??-- ?Appt. Date:??08/18/2023?10:15 AM ?Scheduled Provider:??ANSHUL Noho US Rm 1 ?AN[facility] [address]??[place],??[place],??[address] ?Phone:??[phone]?Fax:??-- ?Appt. Date:??11/13/2023?9:45 AM ?Scheduled Provider:??ANSHUL Alvarez 1 Follow-Up Instructions ?? Diagnosis Urinary tract infection, site not specified; Migraine, unspecified, not intractable, without statusmigrainosus Medications: Please continue your medications until treatment is completed or stopped by your provider. Discuss any questions related to medications with your provider. Medications to Continue Taking That Have Changed [facility], [address] [place] [phone], [phone] - Ciprofloxacin (Cipro 500 mg oral tablet) 1 tab(s) Oral every 12 hours for 10 Days. Refills: 0. Next Dose: These medications were not printed or sent to your pharmacy - Ciprofloxacin (Cipro 250 mg oral tablet) 1 tab(s) Oral every 12 hours. Next Dose: Medications to Continue with No Changes These medications were not printed or sent to your pharmacy Acetaminophen (Tylenol 8 Hour 650 mg oral tablet, extended release) 2 tab(s) Oral every 8 hours. Next Dose: Amphetamine-Dextroamphetamine (Adderall XR 20 mg oral capsule, extended release) 1 capsule Oral Daily in the morning. Next Dose: bifidobacterium-lactobacillus (Probiotic Formula) Oral Daily. Next Dose: Fluconazole (Diflucan 150 mg oral tablet) 1 tab(s) Oral once. Refills: 0. Next Dose: Fluconazole (fluconazole 150 mg oral tablet) 1 tab(s) Oral once. epeat dose if still having symptoms in 72 hours. Refills: 0. Next Dose: Ketorolac (ketorolac 30 mg/mL injectable solution) 30 Milligram Intramuscular once. Left deltoid [facility] 42022-643-31 Lot [id number] Exp 01/2023. Next Dose: lisdexamfetamine (Vyvanse 50 [...] NKA Medications Given This Visit Future Orders ?Urine Culture? Order Date:12/12/22?- Complete on or after?12/12/22 Vital Signs Height 158 cm Weight 68.2 kg BMI 27.32 kg/m2 Blood Pressure 123 mm Hg/83 mm Hg Temperature Pulse Rate 91 bpm Respiratory Rate 02 Sat Mode of Delivery 96 %/ You can now view a summary of your hospital visit from the comfort of your home through a free online portal called [employer]. [employer] is a website that allows you to securely view your medical information including discharge summary, medications and follow-up visits. ??You can alsosend a secure electronic message to your doctor???s office to request appointments, renew medications or just ask a question. You can enroll at [email or web address] or register during your next office [...] primary care provider, you may find a [facility] provider by calling [email or web address] at [phone]. For information about the plan of care [...] Personnel Name: Sara Mckeon MD Position: [facility] Primary Care Physician Member Role: PCP Address: Address: [address] [place] [address]- Care Team Related Persons Name: ULISSES MOON Address: home [address] [place] [address] Name: MILLA MOON Address: [place] [address]
--- OUTSIDE RECORDS SUMMARY | 2023-07-04 14:52 | XMS_ITS | Continuity of Care Document ---
Author Name Unknown Organization [facility] Address [address] [place] [address]- Care Team Providers Care Hospitality Director Name Role Phone Ambar POWELL, Jinny Marquez Primary Care Physician Nicolette deal [place] [facility] [place] - 06/06/[address] [address]- Discharge Disposition: A-D/C Walkout Attending Physician: Not on Staff, Attending MD Admitting Physician: Not on Staff, Admitting MD Referring Physician: Not on Staff, Referring MD Allergies, Adverse Reactions, Alerts No Known Allergies Immunizations Given and Recorded Vaccine Date Status Refusal Reason influenza virus vaccine, inactivated 07/11/21 Give n tetanus/diphtheria/pertussis, acel(Tdap) 07/11/21 Given SARS-CoV-2 (COVID-19) mRNA BNT-162b2 vac 05/23/21 Recorded SARS-CoV-2 (COVID-19) mRNA BNT-162b2 vac 05/02/21 Recorded Medications sertraline 25 mg oral tablet 1 tablet = 25 mg, By Mouth, Daily, DOSE INCREASE, take with 50mg dose for total of 75mg once daily., # 30 tablet, 3 Refills, Maintenance, 05/30/21 15:28:00 EDT, [facility], Partial fillupon patient request if the prescription is for a s... 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 Vital Signs Most recent to oldest [Reference Range]: 1 2 Oxygen Saturation [94-100 %] 95 % (06/06/22 12:28 AM) 95 % (06/06/22 12:18 AM) Pulse Rate [55-90 bpm] 89 bpm (06/06/22 12:28 AM) 93 bpm *H* (06/06/22 12:18 AM) Blood Pressure [90-138/55-84 mm Hg] 120/ 89mm Hg (06/06/22 12:28 AM) Respiratory Rate [16-30 br/min] 20 br/mi n (06/06/22 12:28 AM) Temperature [96.8-100.4 DegF] 98.3 DegF (06/06/22 12:28 AM) Mode of Delivery (Oxygen) Room air (06/06/22 12:28 AM) Blood pressure sites Arm, right (06/06/22 12:28 AM) Temperature Route Oral (06/06/22 12:28 AM) Social History Social History Type Response Smoking Status Never (less than 100 in lifetime) entered on: 08/03/20 Sex Patient Care team information Personnel Name: Jinny Villalta NP
--- OUTSIDE RECORDS SUMMARY | 2023-07-04 14:52 | XMS_ITS | Continuity of Care Document ---
Author Name Unknown Organization [facility] Address [address] [place] [address]- Care Team Providers Care Cvicu Nurse Name Role Phone Sara Mckeon MD Primary Care Physician [place] [facility] [place] 06/13/22 - 08/07/22 [facility] [address] [place] [address]- Attending Physician: Jimmy Yeager MD Admitting Physician: Jimmy Yeager MD Referring Physician: Haley Oconnor MD Allergies, Adverse Reactions, Alerts No Known [...] opioid drug. Start Date: 08/04/22 Status: Ordered cyclobenzaprine 5 mg oral tablet 1 tablet = 5 mg, By Mouth, 3 times a day, PRN Pain , Moderate, Caution, may cause sedation, # 21 tablet, 0 Refills, Acute 09/05/22 14:23:00 EST, 08/06/22 14:22:00 EST, [facility], Partial fill upon patient request if the prescription is for a sc... Start Date: 08/06/22 Stop Date: 09/05/22 Status: Ordered Diflucan 150 mg oral tablet [...] = 30 mg, Intramuscular, Once, Left deltoid [facility] 37984-445-74 Lot [id number] Exp 01/2023, # 1 mL, 0 Refills, Maintenance, 06/20/22 12:12:00 EDT, Partial fill upon patient request if the prescription is fora schedule II opioid drug. Start Date: 06/20/22 Status: Ordered Probiotic Formula By Mouth, Daily, 0 Refills, Maintenance, 08/04/22 15:52:00 EST, Partial fill upon patient request if the prescription is for a schedule II opioid drug. Start Date: 08/04/22 Status: Ordered Pyridium 200 mg oral tablet 1 tablet = 200 mg, By Mouth, 3 times a day, for 3 days, # 9 tablet, 1 Refills, Acute 08/12/22 14:23:00 EST, 08/06/22 14:23:00 EST, Tablet, [facility], Partial fill upon patient request if the prescription is for a schedule II opioid drug., 158,... Start Date: 08/06/22 Stop Date: 08/12/22 Status: Ordered sertraline 25 mg oral tablet [...] EDT, Height Start Date: 05/30/21 Status: Ordered Tylenol 8 Hour 650 mg [...] Team Personnel Name: Sara Mckeon MD Position: [facility] Primary Care Physician Member Role: PCP Address: Address: [address] [place] [address]- Care Team Related Persons Name: ULISSES MOON Address: home [address] [place] [address] Name: MILLA MOON Address: home [address] [place] [address]
--- OUTSIDE RECORDS SUMMARY | 2023-07-04 14:52 | XMS_ITS | Continuity of Care Document ---
Author Name Unknown Organization [facility] Address [address] [place] [address]- Care Team Providers Care Litigation Attorney Associate Name Role Phone Jennifer POWELL, Dominik Pelletier Primary Care Physician [place] [facility] [place] 09/07/20 [facility] [address] [place] [address]- Attending Physician: Adeline Deluca Admitting Physician: Adeline Deluca Referring Physician: AdmtrAdeline Allergies, Adverse Reactions, Alerts Substance Reaction Severity Status NKA Active Medications Vistaril pamoate 25 mg oral capsule See Instructions, PRN for anxiety, Take 1 capsule as needed for anxiety, not to exceed 4 times per day, # 30 capsule, 0 Refills, Maintenance, 08/03/20 10:29:00 EST, Capsule, [facility], Partialfill upon patient request, 157, cm, 08/03/20 8:25:0... Start Date: 08/03/20 Status: Ordered Problem List Condition Effective Dates Status Health Status Inform ant Eczema(Confirmed) Active Social History Social History Type Response Smoking Status Never (less than 100 in lifetime) entered on: 08/03/20 Sex
--- OUTSIDE RECORDS SUMMARY | 2023-07-04 14:52 | XMS_ITS | Continuity of Care Document ---
Author Name Unknown Organization [facility] Address [address] [place] [address]- Care Team Providers Care Rouge Presser Name Role Phone Jennifer POWELL, Dominik Pelletier Primary Care Physician En[facility] [place] Date(s): 01/14/21 - 02/13/21 [facility] [address] [place], [place] [address] Attending Physician: Adeline Deluca Admitting Physician: Adeline Deluca Referring Physician: Adeline Deluca Allergies, Adverse Reactions, Alerts Substance Reaction Severity Status NKA Active Medications sertraline 25 mg oral tablet 1 tablet = 25 mg, By Mouth, Daily, DOSE INCREASE 01/14/21, take with 50mg dose for total of 75mg once daily., # 30 tablet, 3 Refills, Maintenance, 01/14/21 9:17:00 EDT, Tablet, [facility], Partial fill upon patient request if the prescription is... Start Date: 01/14/21 Status: Ordered sertraline 50 mg oral tablet 1 tablet = 50 mg, By Mouth, Daily, Take 1/2 tab daily x7 days, then increase to full tab (total 50mg), # 30 tablet, 4 Refills, Maintenance, 09/14/20 14:15:00 EST, Tablet, [facility], Partial fill upon patient request if [...]
--- OUTSIDE RECORDS SUMMARY | 2023-07-04 14:52 | XMS_ITS | Continuity of Care Document ---
Author Name Unknown Organization [facility] Address [address] [place] [address]- Care Team Providers Care Lay Out And Detail Drafter Name Role Phone Sara Mckeon MD Primary Care Physician [place] [facility] [place]23 [place] 03/22/23 [facility] [address] [place] [address]- Allergies, Adverse Reactions, Alerts No Known Allergies [...] 15:15:00 EDT, Route to Pharmacy Electronically, [facility], Partial fill upon patient [...] 0 Refills, Soft Stop, 06/17/22 14:50:00 EDT, Tablet,[facility], Partial fill upon patient request if the prescription is for a schedule II opioiddrug., 158, cm, 06/09/22 11:58:00 EDT, Height Start Date: 06/17/22 Status: Ordered Effexor XR 37.5 mg oral capsule, extended release 37.5 mg, 1, capsule, By Mouth, Daily, # 30 capsule, Refills 1, Tot. Refills 1, Maintenance, 08/21/22 13:08:00 EST, Route to Pharmacy Electronically, [facility], Partial fill upon patient request if the prescription is for a schedule II opioid dr... Start Date: 08/21/22 Status: Ordered Flomax 0.4 mg oral capsule 0.4 mg, 1, capsule, By Mouth, Daily, # 30 capsule, Refills 1, Tot. Refills 1, Maintenance, 10/09/2310:44:00 EST, Route to Pharmacy Electronically, [facility], Partial fill upon patient requestif the prescription is for a schedule II opioid gabriela... Start Date: 10/09/22 Status: Ordered fluconazole 150 mg oral tablet 1 tablet = 150 mg, By Mouth, Once, epeat dose if still having symptoms in 72 hours, # 2 tablet, 0 Refills, Soft Stop, 10/03/22 16:21:00 EST, Tablet, [facility], Partial fill upon patient request if the prescription is for a schedule II opioid dr... Start Date: 10/03/22 Status: Ordered ketorolac 30 mg/mL injectable solution = 30 mg, Intramuscular, Once, Left deltoid [facility] [id number] Lot [id number] Exp 01/2023, # 1 mL, 0 Refills, [...] Primary Care Member Role: PCP Address: Address: [address] [place] [address] Care Team Related Persons Name: ULISSES MOON Address: home [address] [place] [address] Name: MILLA MOON Address: home [address] [place] [address]
--- OUTSIDE RECORDS SUMMARY | 2023-07-04 14:52 | XMS_ITS | Continuity of Care Document ---
Author Name Unknown Organization [facility] Address [address] [place] [address]- Care Team Providers Care Business Process Analyst Name Role Phone Sara Mckeon MD Primary Care Physician [place] [facility] [place]01[place]23 - 01/31/23 [facility] [address] [place] [address]- Allergies, Adverse Reactions, Alerts No Known Allergies [...] 15:15:00 EDT, Route to Pharmacy Electronically, [facility], Partial fill upon patient [...] 01/08/23 11:12:00 EDT, Route to Pharmacy Electronically, [facility], Partial fill upon patient request if the prescription is for... Start Date: 01/08/23 Stop Date: 02/08/23 Status: Ordered Diflucan 150 mg oral tablet 1 tablet = 150 mg, By Mouth, Once, # 1 tablet, 0 Refills, Soft Stop, 06/17/22 14:50:00 EDT, Tablet,[facility], Partial fill upon patient request if the prescription is for a schedule II opioiddrug., 158, cm, 06/09/22 11:58:00 EDT, Height Start Date: 06/17/22 Status: Ordered Effexor XR 37.5 mg oral capsule, extended release 37.5 mg, 1, capsule, By Mouth, Daily, # 30 capsule, Refills 1, Tot. Refills 1, Maintenance, 08/21/22 13:08:00 EST, Route to Pharmacy Electronically, [facility], Partial fill upon patient request if the prescription is for a schedule II opioid dr... Start Date: 08/21/22 Status: Ordered Flomax 0.4 mg oral capsule 0.4 mg, 1, capsule, By Mouth, Daily, # 30 capsule, Refills 1, Tot. Refills 1, Maintenance, 10/09/2310:44:00 EST, Route to Pharmacy Electronically, [facility], Partial fill upon patient requestif the prescription is for a schedule II opioid gabriela... Start Date: 10/09/22 Status: Ordered fluconazole 150 mg oral tablet 1 tablet = 150 mg, By Mouth, Once, epeat dose if still having symptoms in 72 hours, # 2 tablet, 0 Refills, Soft Stop, 10/03/22 16:21:00 EST, Tablet, [facility], Partial fill upon patient request if the prescription is for a schedule II opioid dr... Start Date: 10/03/22 Status: Ordered ketorolac 30 mg/mL injectable solution = 30 mg, Intramuscular, Once, Left deltoid [facility] [id number] Lot [id number] Exp 01/2023, # 1 mL, 0 Refills, [...] Team Personnel Name: Sara Mckeon MD Position: [facility] Physician - Primary Care Member Role: PCP Address: Address: [address] [place] [address]- Care Team Related Persons Name: MOON ULISSES Address: home [address] [place], [place] [id number] Name: MILLA MOON Address: home [address] [place] [id number]
--- OUTSIDE RECORDS SUMMARY | 2023-07-04 14:52 | XMS_ITS | Continuity of Care Document ---
Author Name Unknown Organization [facility] Address [address] [place] [address]- Care Team Providers Care Ski Lift Attendant Name Role Phone Sara Mckeon MD Primary Care Physician [place] [facility] [place] 09/03/22 [facility] [address] [place] [address]- Allergies, Adverse Reactions, Alerts No Known Allergies [...] 0 Refills, Soft Stop, 06/17/22 14:50:00 EDT, Tablet,[facility], Partial fill upon patient request if the prescription is for a schedule II opioiddrug., 158, cm, 06/09/22 11:58:00 EDT, Height Start Date: 06/17/22 Status: Ordered Effexor XR 37.5 mg oral capsule, extended release 37.5 mg, 1, capsule, By Mouth, Daily, # 30 capsule, Refills 1, Tot. Refills 1, Maintenance, 08/21/22 13:08:00 EST, Route to Pharmacy Electronically, [facility], Partial fill upon patient request if the prescription is for a schedule II opioid drMalena. Start Date: 08/21/22 Status: Ordered ketorolac 30 mg/mL injectable solution = 30 mg, Intramuscular, Once, Left deltoid [facility] [id number] Lot [id number] Exp 01/2023, # 1 mL, 0 Refills, [...] Care Physician Member Role: PCP Address: Address: [address] [place] [address]- Care Team Related Persons Name: ULISSES MOON Address: [place] [address] Name: MILLA MOON Address: [place] [address]
--- OUTSIDE RECORDS SUMMARY | 2023-07-04 14:52 | XMS_ITS | Continuity of Care Document ---
Author Name Unknown Organization [facility] Address [address] [place] [address]- Care Team Providers Care Event Specialist Food Demonstrator Name Role Phone Sara Mckeon MD Primary Care Physician [place] [facility] [place]07[place]22 - 09/06/22 [facility] [address] [place] [address]- Allergies, Adverse Reactions, Alerts No Known Allergies [...] 12/15/22 13:08:00 EST, Route to Pharmacy Electronically, [facility], Partial fill upon patient request if the prescription is for a schedule II opioid . Start Date: 08/21/22 Status: Ordered ketorolac 30 mg/mL injectable solution = 30 mg, Intramuscular, Once, Left deltoid [facility] [id number] Lot [id number] Exp 01/2023, # 1 mL, 0 Refills, [...] Team Personnel Name: Sara Mckeon MD Position: [facility] Primary Care Physician Member Role: PCP Address: Address: [address] [place] [address]- Care Team Related Persons Name: ULISSES MOON Address: home [address] [place] [address] Name: MILLA MOON Address: home [address] [place] [id number]
--- OUTSIDE RECORDS SUMMARY | 2023-07-04 14:53 | XMS_ITS | Continuity of Care Document ---
Author Name Unknown Organization [facility] Address [address] [place] [address]- Care Team Providers Care Assembler Hydraulic Backhoe Name Role Phone Ambar POWELL, Jinny Marquez Primary Care Physician Encounter [facility] Date(s): 06/17/21 - 07/17/21 [facility] [address] [place] [address]- Allergies, Adverse Reactions, Alerts Substance Reaction Severity Status NKA Active Immunizations Given and Recorded Vaccine Date Status [...] 3 Refills, Maintenance, 05/30/21 15:28:00 EDT, Tablet, [facility], Partial fillupon patient request if the prescription is for a s... Start Date: 05/30/21 Status: Ordered sertraline 50 mg oral tablet 1 tablet = 50 mg, By Mouth, Daily, # 90 tablet, 1 Refills, Maintenance, 05/30/21 15:27:00 EDT, Tablet, [facility], Partial fill upon patient request if the prescription is for a schedule II opioid drug., 157, cm, 01/14/21 9:03:00 EDT, Height Start Date: 05/30/21 Status: Ordered Problem List Condition Effective Dates Status Health Status Inform ant Eczema(Confirmed) Active Major depressive disorder, s jayla episode with atypical features(Confirmed) Active Social History Social History Type Response Smoking Status Never (less than 100 in lifetime) entered on: 08/03/20 Sex
--- OUTSIDE RECORDS SUMMARY | 2023-07-04 14:53 | XMS_ITS | Continuity of Care Document ---
Author Name Unknown Organization [facility] Address [address] [place] [address]- Care Team Providers Care Director Day Care Center Name Role Phone Linda YATES, Sara Schuster Primary Care Physician Encounter [facility] Date(s): 06/12/22 - 07/12/22 [facility] [address] [place] [address]- Allergies, Adverse Reactions, Alerts No Known Allergies [...] = 30 mg, Intramuscular, Once, Left deltoid [facility] 10676-496-54 Lot [id number] Exp 01/2023, # 1 mL, 0 Refills, [...] 3 Refills, Maintenance, 05/30/21 15:28:00 EDT, Tablet, [facility], Partial fillupon patient request if the prescription is for a s... Start Date: 05/30/21 Status: Ordered sertraline 50 mg oral tablet 1 tablet = 50 mg, By Mouth, Daily, # 90 tablet, 1 Refills, Maintenance, 05/30/21 15:27:00 EDT, Tablet, [facility], Partial fill upon patient request if [...] Name: Linda YATES, Sara Schuster Address: [facility] [place] [address]
--- OUTSIDE RECORDS SUMMARY | 2023-07-04 14:53 | XMS_ITS | Continuity of Care Document ---
Author Name Unknown Organization [facility] Address [address] [place] [address]- Care Team Providers Care Wood Technologist Name Role Phone Sara Mckeon MD Primary Care Physician Encounter [facility] [place] Date(s): 01/01/23 - 01/31/23 [facility] [address] [place] [address]- Allergies, Adverse Reactions, Alerts No Known Allergies [...] 12/18/22 15:15:00 EDT, Route to Pharmacy Electronically, [facility], Partial fill upon patient [...] 01/08/23 11:12:00 EDT, Route to Pharmacy Electronically, [facility], Partial fill upon patient request if the prescription is for... Start Date: 01/08/23 Stop Date: 02/08/23 Status: Ordered Diflucan 150 mg oral tablet 1 tablet = 150 mg, By Mouth, Once, # 1 tablet, 0 Refills, Soft Stop, 06/17/22 14:50:00 EDT, Tablet,[facility], Partial fill upon patient request if the prescription is for a schedule II opioiddrug., 158, cm, 06/09/22 11:58:00 EDT, Height Start Date: 06/17/22 Status: Ordered Effexor XR 37.5 mg oral capsule, extended release 37.5 mg, 1, capsule, By Mouth, Daily, # 30 capsule, Refills 1, Tot. Refills 1, Maintenance, 08/21/22 13:08:00 EST, Route to Pharmacy Electronically, [facility], Partial fill upon patient request if [...] Refills, Soft Stop, 10/03/22 16:21:00 EST, Tablet, [facility], Partial fill upon patient request if the prescription is for a schedule II opioid dr... Start Date: 10/03/22 Status: Ordered ketorolac 30 mg/mL injectable solution = 30 mg, Intramuscular, Once, Left deltoid [facility] 43683-058-49 Lot [id number] Exp 01/2023, # 1 mL, 0 Refills, [...] Team Personnel Name: Sara Mckeon MD Position: [facility] Physician - Primary Care Member Role: PCP Address: Address: [address] [place] [id number]- Care Team Related Persons Name: MOON ULISSES Address: [address] [place], [place] [id number] Name: MILLA MOON Address: home [address] [place] [id number]
--- OUTSIDE RECORDS SUMMARY | 2023-07-04 14:53 | XMS_ITS | Continuity of Care Document ---
Author Name Unknown Organization [facility] Address [address] [place] [address]- Care Team Providers Care Washhouse Worker Name Role Phone Linda YATES, Sara Schuster Primary Care Physician Encounter [facility] [place] Date(s): 06/14/22 - 07/20/22 [facility] [address] [place] [address]- Attending Physician: Anastasia YATES, Haley Rose Allergies, Adverse Reactions, Alerts No Known Allergies [...] mg, Intramuscular, Once, Left deltoid [facility] [id number] Lot [id number] Exp 01/2023, # 1 mL, 0 Refills, [...] 3 Refills, Maintenance, 05/30/21 15:28:00 EDT, Tablet, [facility], Partial fillupon patient request if the prescription is for a s... Start Date: 05/30/21 Status: Ordered sertraline 50 mg oral tablet 1 tablet = 50 mg, By Mouth, Daily, # 90 tablet, 1 Refills, Maintenance, 05/30/21 15:27:00 EDT, Tablet, [facility], Partial fill upon patient request if [...] Team Personnel Name: Sara Mckeon MD Position: [facility] Primary Care Physician Member Role: PCP Address: Address: [address] [place] [id number] Care Team Related Persons Name: ULISSES MOON Address: home [address] [place] [address] Name: MILLA MOON Address: home [address] [place] [address]
--- OUTSIDE RECORDS SUMMARY | 2023-07-04 14:53 | XMS_ITS | Continuity of Care Document ---
Author Name Unknown Organization [facility] Address [address] [place] [address]- Care Team Providers Care Molding Machine Setter Name Role Phone Sara Mckeon MD Primary Care Physician [place] [facility] [place] 12/17/22 - 01/16/23 [facility] [address] [place] [address]- Allergies, Adverse Reactions, Alerts No Known Allergies [...] 12/18/22 15:15:00 EDT, Route to Pharmacy Electronically, [facility], Partial fill upon patient request... Start [...] 01/08/23 11:12:00 EDT, Route to Pharmacy Electronically, [facility], Partial fill upon patient request if the prescription is for... Start Date: 01/08/23 Stop Date: 02/08/23 Status: Ordered Diflucan 150 mg oral tablet 1 tablet = 150 mg, By Mouth, Once, # 1 tablet, 0 Refills, Soft Stop, 06/17/22 14:50:00 EDT, Tablet,[facility], Partial fill upon [...] = 30 mg, Intramuscular, Once, Left deltoid [facility] [id number] Lot [id number] Exp 01/2023, # 1 mL, 0 Refills, [...] Team Personnel Name: Sara Mckeon MD Position: [facility] Primary Care Physician Member Role: PCP Address: Address: [address] [place] [address]- Care Team Related Persons Name: ULISSES MOON Address: home [address] [place] [id number] Name: MILLA MOON Address: home [address] [place], [place] [id number]
--- OUTSIDE RECORDS SUMMARY | 2023-07-04 14:53 | XMS_ITS | Continuity of Care Document ---
Author Name Unknown Organization [facility] Address [address] [place] [address]- Care Team Providers Care Lye Boiler Name Role Phone Effie YATES, Jewels Matamoros Primary Care Physician En[place] [facility] [place] Date(s): 04/23/23 - 05/23/23 [facility] [address] [place] [address]- Attending Physician: Adeline Deluca Admitting Physician: Adeline Deluca Referring Physician: AdmtrAdeline Allergies, Adverse Reactions, Alerts No Known Allergies [...] to Pharmacy Electronically, [facility], Partial fill upon patient request... Start [...] 0 Refills, Soft Stop, 06/17/22 14:50:00 EDT, Tablet,[facility], Partial fill upon patient request if the prescription is for a schedule II opioiddrug., 158, cm, 06/09/22 11:58:00 EDT, Height Start Date: 06/17/22 Status: Ordered Effexor XR 37.5 mg oral capsule, extended release 37.5 mg, 1, capsule, By Mouth, Daily, # 30 capsule, Refills 1, Tot. Refills 1, Maintenance, 08/21/22 13:08:00 EST, Route to Pharmacy Electronically, [facility], Partial fill upon patient request if the prescription is for a schedule II opioid dr... Start Date: 08/21/22 Status: Ordered Flomax 0.4 mg oral capsule 0.4 mg, 1, capsule, By Mouth, Daily, # 30 capsule, Refills 1, Tot. Refills 1, Maintenance, 10/09/2310:44:00 EST, Route to Pharmacy Electronically, [facility], Partial fill upon patient requestif the prescription is for a schedule II opioid gabriela... Start Date: 10/09/22 Status: Ordered fluconazole 150 mg oral tablet 1 tablet = 150 mg, By Mouth, Once, epeat dose if still having symptoms in 72 hours, # 2 tablet, 0 Refills, Soft Stop, 10/03/22 16:21:00 EST, Tablet, [facility], Partial fill upon patient request if the prescription is for a schedule II opioid dr... Start Date: 10/03/22 Status: Ordered ketorolac 30 mg/mL injectable solution = 30 mg, Intramuscular, Once, Left deltoid [facility] [id number] Lot [id number] Exp 01/2023, # 1 mL, 0 Refills, [...] Care team information Care Team Personnel Name: Jewels Chou MD Position: [facility] Outreach Member Role: PCP Address: Address: [address] [place] [address]- Care Team Related Persons Name: ULISSES MOON Address: home [address] [place] [address] Name: MILLA MOON Address: home [address] [place] [address]
--- OUTSIDE RECORDS SUMMARY | 2023-07-04 14:53 | XMS_ITS | Continuity of Care Document ---
Author Name Unknown Organization [facility] Address [address] [place] [address]- Care Team Providers Care Protection Specialist Name Role Phone Jennifer POWELL, Dominik Pelletier Primary Care Physician Encounter [facility] Date(s): 09/18/20 - 10/18/20 [facility] [address] [place] [address]- Allergies, Adverse Reactions, Alerts Substance Reaction Severity Status NKA Active Medications sertraline 50 mg oral tablet 1 tablet = 50 mg, By Mouth, Daily, Take 1/2 tab daily x7 days, then increase to full tab (total 50mg), # 30 tablet, 4 Refills, Maintenance, 09/14/20 14:15:00 EST, Tablet, [facility], Partial fill upon patient request if the prescription is for a... Start Date: 09/14/20 Status: Ordered Vistaril pamoate 25 mg oral capsule See Instructions, PRN for anxiety, Take 1 capsule as needed for anxiety, not to exceed 4 times per day, # 30 capsule, 0 Refills, Maintenance, 08/03/20 10:29:00 EST, Capsule, [facility], Partialfill upon patient request, 157, cm, 08/03/20 8:25:0... 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
--- OUTSIDE RECORDS SUMMARY | 2023-07-04 14:53 | XMS_ITS | Continuity of Care Document ---
Author Name Unknown Organization [facility] Address [address] [place] [address]- Care Team Providers Care Banking Assistant Name Role Phone Jennifer POWELL, Dominik Pelletier [facility] Phys[id number]14[facility] 09[facility]21/20 [facility] [address] [place] [address]- Encounter Diagnosis Major depressive disorder, single episode with atypical features(Discharge Diagnosis) - 09/14/20 Anxiety disorder(Discharge Diagnosis) - 09/14/20 Attending Physician: Dominik Rodriguez NP Allergies, Adverse Reactions, Alerts Substance Reaction Severity Status NKA Active Medications sertraline 50 mg oral tablet 1 tablet = 50 mg, By Mouth, Daily, Take 1/2 tab daily x7 days, then increase to full tab (total 50mg), # 30 tablet, 4 Refills, Maintenance, 09/14/20 14:15:00 EST, Tablet, [facility], Partial fill upon patient request if the prescription is for a... Start Date: 09/14/20 Status: Ordered Vistaril pamoate 25 mg oral capsule See Instructions, PRN for anxiety, Take 1 capsule as needed for anxiety, not to exceed 4 times per day, # 30 capsule, 0 Refills, Maintenance, 08/03/20 10:29:00 EST, Capsule, [facility], Partialfill upon patient request, 157, cm, 08/03/20 8:25:0... Start Date: 08/03/20 Status: Ordered Problem List Condition Effective Dates Status Health Status Inform ant Eczema(Confirmed) Active Major depressive disorder, s jayla episode with atypical features(Confirmed) Active Diagnosis Diagnosis Type Effective Dates Health Status Clinical Service Informant Major depressive disorder, single episode with atypical features Discharge Diagnosis 09/14/20 Anxiety disorder Discharge Diagnosis 09/14/20 Vital Signs Most recent to oldest [Reference Range]: 1 Height 157 cm (09/14/20 1:03 PM) Social History Social History Type Response Smoking Status Never (less than 100 in lifetime) entered on: 08/03/20 Sex
--- OUTSIDE RECORDS SUMMARY | 2023-07-04 14:53 | XMS_ITS | Continuity of Care Document ---
Author Name Unknown Organization [facility] Address [address] [place] [address]- Care Team Providers Care Physician Practice Market Manager Name Role Phone Sara Mckeon MD Primary Care Physician Encounter [facility] [place] Date(s): 01/08/23 - 02/07/23 [facility] [address] [place] [address]- Attending Physician: Adeline Deluca Admitting Physician: Admtr, Ar8 Referring Physician: Admtr, Ar8 Allergies, Adverse Reactions, [...] 12/18/22 15:15:00 EDT, Route to Pharmacy Electronically, [facility], Partial fill upon patient request... Start [...] 01/08/23 11:12:00 EDT, Route to Pharmacy Electronically, [facility], Partial fill upon patient request if the prescription is for... Start Date: 01/08/23 Stop Date: 02/08/23 Status: Ordered Diflucan 150 mg oral tablet 1 tablet = 150 mg, By Mouth, Once, # 1 tablet, 0 Refills, Soft Stop, 06/17/22 14:50:00 EDT, [facility], Partial fill upon patient request if the prescription is for a schedule II opioiddrug., 158, cm, 06/09/22 11:58:00 EDT, Height Start Date: 06/17/22 Status: Ordered Effexor XR 37.5 mg oral capsule, extended release 37.5 mg, 1, capsule, By Mouth, Daily, # 30 capsule, Refills 1, Tot. Refills 1, Maintenance, 08/21/22 13:08:00 EST, [facility], Partial fill upon patient request if the prescription is for a schedule II opioid dr... Start Date: 08/21/22 Status: Ordered Flomax 0.4 mg oral capsule 0.4 mg, 1, capsule, By Mouth, Daily, # 30 capsule, Refills 1, Tot. Refills 1, Maintenance, 10/09/2310:44:00 EST, [facility], Partial fill upon patient requestif the prescription is for a schedule II opioid gabriela... Start Date: 10/09/22 Status: Ordered fluconazole 150 mg oral tablet 1 tablet = 150 mg, By Mouth, Once, epeat dose if still having symptoms in 72 hours, # 2 tablet, 0 Refills, Soft Stop, 10/03/22 16:21:00 EST, Tablet, [facility], Partial fill upon patient request if the prescription is for a schedule II opioid drMalena. Start Date: 10/03/22 Status: Ordered ketorolac 30 mg/mL injectable solution = 30 mg, Intramuscular, Once, Left deltoid [facility] 12764-395-83 Lot [id number] Exp 01/2023, # 1 mL, 0 Refills, [...] 100 in lifetime) entered on: 08/03/20 Sex Laboratory * Event Display: Laboratory Result Scanned Authored Date: [id number] * Maite Rivers: PERFORM Event Display: Laboratory Results Scanned Authored Date: [id number] * Lamine Reyes: PERFORM Event Display: Laboratory Results Scanned Authored Date: Radiology * Event Display: CT Scan Abdomen, Non- Authored Date: * Event Display: Ultrasound Abdomen, Non- Authored Date: Patient Care team information Care Team Personnel Name: Sara Mckeon MD Position: S Physician - Primary Care Member Role: PCP Address: Address: [address] [place] [address] Care Team Related Persons Name: ULISSES MOON Address: home [address] [place] [address] Name: MILLA MOON Address: [place] [address]
--- OUTSIDE RECORDS SUMMARY | 2023-07-04 14:53 | XMS_ITS | Continuity of Care Document ---
Author Name Unknown Organization [facility] Address [address] [place] [address]- Care Team Providers Care Tugboat Pilot Name Role Phone Jewels Chou MD [id number]30[facility]23 [facility] [address] [place] [address]- Attending Physician: Marilia Espino DO Referring Physician: Jewels Chou MD Allergies, Adverse Reactions, Alerts No Known [...] 15:15:00 EDT, Route to Pharmacy Electronically, [facility], Partial fill upon patient request... Start [...] 13:08:00 EST, Route to Pharmacy Electronically, [facility], Partial fill upon patient request if [...] [facility] 40056-518-51 Lot [id number] Exp 01/2023, # 1 mL, 0 Refills, [...] oldest [Reference Range]: 1 Height 158 cm (04/23/23 5:44 PM) Oxygen Saturation [94-100 %] 97 % (04/23/23 5:44 PM) Pulse Rate [55-90 bpm] 84 bpm (04/23/23 5:44 PM) Blood Pressure [90-138/55-84 mm Hg] 119/ 78mm Hg (04/23/23 5:44 PM) Respiratory Rate [16-30 br/min] 16 br/mi n (04/23/23 5:44 PM) Temperature [96.8-100.4 DegF] 97.6 DegF (04/23/23 5:44 PM) Mode of Delivery (Oxygen) Room air (04/23/23 5:44 PM) Blood pressure sites Arm, right (04/23/23 5:44 PM) Temperature Route Temporal (8/17/23 5:44 PM) Social History Social History Type Response Smoking Status Never (less than 100 in lifetime) entered on: 08/03/20 Sex Patient Care team information Care Team Personnel Name: Jewels Chou MD Position: [facility] Outreach Member Role: PCP Address: Address: [address] [place] [address] [address] [place] [address]- Care Team Related Persons Name: ULISSES MOON Address: home [address] [place] [address] Name: MILLA MOON Address: [address] [place] [address]
--- OUTSIDE RECORDS SUMMARY | 2023-07-04 14:53 | XMS_ITS | Continuity of Care Document ---
Author Name Unknown Organization [facility] Address [address] [place] [address]- Care Team Providers Care Information Systems Consultant Name Role Phone Jennifer POWELL, Dominik Pelletier Primary Care Physician Encounter [facility] Date(s): 08/08/20 - 08/15/20 [facility] [address] [place] [address]- Encounter Diagnosis Anxiety(Discharge Diagnosis) - 08/09/20 Attending Physician: oDminik Rodriguez NP Allergies, Adverse Reactions, Alerts Substance [...] Status Health Status Inform ant Eczema(Confirmed) Active Diagnosis Diagnosis Type Effective Dates Health Status Clini lionel Service Informant Anxiety Discharge Diagnosis 08/09/20 Vital Signs Most recent to oldest [Reference Range]: 1 Height 157 cm (08/08/20 3:41 PM) Social History Social History Type Response Smoking Status Never (less than 100 in lifetime) entered on: 08/03/20 Sex
--- OUTSIDE RECORDS SUMMARY | 2023-07-04 14:53 | XMS_ITS | Continuity of Care Document ---
Author Name Unknown Organization [facility] Address [address] [facility] [place] [address]- Care Team Providers Care Manager Casino Name Role Phone Sara Mckeon MD Primary Care Physician Encounter 08/13/22 - 08/20/22 [facility] [address], [address] [place] [address]- Attending Physician: Kevin Santoyo MD Admitting Physician: Kevin Santoyo MD Referring Physician: Kevin Santoyo MD Allergies, Adverse Reactions, Alerts No Known [...] 09/05/22 14:23:00 EST, 08/06/22 14:22:00 EST, [facility], Partial fill upon patient request if the prescription is for a sc... Start Date: 08/06/22 Stop Date: 09/05/22 Status: Ordered Diflucan 150 mg oral tablet 1 tablet = 150 mg, By Mouth, Once, # 1 tablet, 0 Refills, Soft Stop, 06/17/22 14:50:00 EDT, Tablet,[facility], Partial fill upon patient request if the prescription is for a schedule II opioiddrug., 158, cm, 06/09/22 11:58:00 EDT, Height Start Date: 06/17/22 Status: Ordered ketorolac 30 mg/mL injectable solution = 30 mg, Intramuscular, Once, Left deltoid [facility] [id number] Lot [id number] Exp 01/2023, # 1 mL, 0 Refills, Maintenance, 06/20/22 12:12:00 EDT, Partial fill upon patient request if the prescription is fora schedule II opioid drug. Start Date: 06/20/22 Status: Ordered Probiotic Formula By Mouth, Daily, 0 Refills, Maintenance, 08/04/22 15:52:00 EST, Partial fill upon patient request if the prescription is for a schedule II opioid drug. Start Date: 08/04/22 Status: Ordered sertraline 25 mg oral tablet 1 tablet = 25 mg, By Mouth, Daily, DOSE INCREASE, take with 50mg dose for total of 75mg once daily., # 30 tablet, 3 Refills, Maintenance, 05/30/21 15:28:00 EDT, Tablet, [facility], Partial fillupon patient request if the prescription is for a s... Start Date: 05/30/21 Status: Ordered sertraline 50 mg oral tablet 1 tablet = 50 mg, By Mouth, Daily, # 90 tablet, 1 Refills, Maintenance, 05/30/21 15:27:00 EDT, Tablet, [facility], Partial fill upon patient [...] Exam Date Time Procedure Performing Provider Status 08/13/22 12:22 PM US Retroperitoneum Comp Loco Sanchez; Auth (Verified) Notes: (US Retroperitoneum Comp) Reason For Exam: N20.1 CALC URETER RESULT: US Retroperitoneum Comp US Retroperitoneum Comp REASON: Calc Ureter; COMPARISON: Ultrasound retroperitoneum dated 08/05/2022 and 06/10/2022. FINDINGS: Comparison with prior studies somewhat limited as both priors happened to be performed on differenttypes of ultrasound machine each at different hospitals in the [facility]. Right kidney: 11.0 cm in length. No hydronephrosis. Normal parenchymal thickness and echotexture. At least 2 upper pole and one lower pole echogenic foci with limited posterior acoustic shadowing, artifact versus nonobstructing renal calculi. These measure up to 0.8 x 1.0 cm at upper pole. No suspicious mass. Left kidney: 11.0 cm in length. No hydronephrosis. Normal parenchymal thickness and echotexture. There is an anatomic variant dromedary hump. No stones. No suspicious mass. Urinary bladder: Incompletely distended, but no evidence of stone, mass, wall thickening or debris.Bilateral ureteral jets are identified on color Doppler imaging suggesting ureterovesicular junction patency. There is a partially visualized tampon. IMPRESSION: No hydronephrosis. Few echogenic foci within the right kidney measuring up to 1.0 cm at upper pole, presumably artifact as opposed to nonobstructing calculi as not clearly delineated on the 08/05/2022 ultrasound. If indicated, more definitive characterization could be obtained with noncontrast CT. I have personally reviewed the images and I agree with this report. WSN: [id number] Ordering Physician: Kevin Santoyo Dictated By: Armand Borges MD Dictated Date/Time: 08/13/22 2:20 pm Reviewed By: Dilshad Camejo MD Signed By: Dilshad Camejo MD Signed Date/Time: 08/13/22 2:25 pm Transcribed By: GLENYS Transcribed Date/Time: 08/13/22 1:45 pm Social History Social History Type Response Smoking Status Never (less than 100 in lifetime) entered on: 08/03/20 Sex US Retroperitoneum * SP[facility] , CIS S: TRANSCRIBE Dilshad Camejo MD: VERIFY Armand Borges MD: SIGN Event Display: Result: Authored Date: [id number] US Retroperitoneum Comp REASON: Calc Ureter; COMPARISON: Ultrasound retroperitoneum dated 08/05/2022 and 06/10/2022. FINDINGS: Comparison with prior studies somewhat limited as both priors happened to be performed on differenttypes of ultrasound machine each at different hospitals in the [facility]. Right kidney: 11.0 cm in length. No hydronephrosis. Normal parenchymal thickness and echotexture. At least 2 upper pole and one lower pole echogenic foci with limited posterior acoustic shadowing, artifact versus nonobstructing renal calculi. These measure up to 0.8 x 1.0 cm at upper pole. No suspicious mass. Left kidney: 11.0 cm in length. No hydronephrosis. Normal parenchymal thickness and echotexture. There is an anatomic variant dromedary hump. No stones. No suspicious mass. Urinary bladder: Incompletely distended, but no evidence of stone, mass, wall thickening or debris.Bilateral ureteral jets are identified on color Doppler imaging suggesting ureterovesicular junction patency. There is a partially visualized tampon. IMPRESSION: No hydronephrosis. Few echogenic foci within the right kidney measuring up to 1.0 cm at upper pole, presumably artifact as opposed to nonobstructing calculi as not clearly delineated on the 08/05/2022 ultrasound. If indicated, more definitive characterization could be obtained with noncontrast CT. I have personally reviewed the images and I agree with this report. WSN: [id number] Ordering Physician: Kevin Santoyo Dictated By: Armand Borges MD Dictated Date/Time: 08/13/22 2:20 pm Reviewed By: Dilshad Camejo MD Signed By: Dilshad Camejo MD Signed Date/Time: 08/13/22 2:25 pm Transcribed By: GLENYS Transcribed Date/Time: 08/13/22 1:45 pm Patient Care team information Care Team Personnel Name: Sara Mckeon MD Position: [facility] Primary Care Physician Member Role: PCP Address: Address: [address] [place] [id number]- Care Team Related Persons Name: ULISSES MOON Address: [address] [place] [address] Name: MILLA MOON Address: [address] [place] [address]
--- OUTSIDE RECORDS SUMMARY | 2023-07-04 14:53 | XMS_ITS | Continuity of Care Document ---
Author Name Unknown Organization [facility] Address [address] [place] [address]- Care Team Providers Care Accelerator Systems Director Name Role Phone Ambar POWELL, Jinny Marquez Primary Care Physician Encounter [facility] [place] [place] Date(s): 07/11/21 - 08/10/21 [facility] [address] [place] [address]- Attending Physician: Admtr, Ar8 Admitting Physician: Admtr, Ar8 Referring Physician: Admtr, Ar8 Allergies, Adverse Reactions, Alerts Substance Reaction Severity [...] tablet, 3 Refills, Maintenance, 05/30/21 15:28:00 EDT, [place], [facility], Partial fillupon patient request if the prescription is for a s... Start Date: 05/30/21 Status: Ordered sertraline 50 mg oral tablet 1 tablet = 50 mg, By Mouth, Daily, # 90 tablet, 1 Refills, Maintenance, 05/30/21 15:27:00 EDT, Tablet, [facility], Partial fill upon patient request if [...]
--- OUTSIDE RECORDS SUMMARY | 2023-07-04 14:53 | XMS_ITS | Continuity of Care Document ---
Author Name Unknown Organization [facility] Address [address] [place] [address]- Care Team Providers Care Beveler Name Role Phone Sara Mckeon MD Primary Care Physician Encounter [facility] [place] Date(s): 08/21/22 - 09/20/22 [facility] [address] [place] [address]- Attending Physician: Adeline Deluca Admitting Physician: AdmtrAdeline [...] 13:08:00 EST, Route to Pharmacy Electronically, [facility], Partial fill upon patient request if the prescription is for a schedule II opioid . Start Date: 08/21/22 Status: Ordered ketorolac 30 mg/mL injectable solution = 30 mg, Intramuscular, Once, Left deltoid [facility] 38996-288-56 Lot [id number] Exp 01/2023, # 1 mL, 0 Refills, [...] Event Display: Laboratory Result Scanned Authored Date: [id number] * Maite Rivers: PERFORM Event Display: Laboratory Results Scanned Authored Date: [id number] * Lamine Reyes: PERFORM Event Display: Laboratory Results Scanned Authored Date: [id number] Patient Care team information Care Team Personnel Name: Sara Mckeon MD Position: [facility] Primary Care Physician Member Role: PCP Address: Address: [address] [place] [address] Care Team Related Persons Name: ULISSES MOON Address: [place] [address] Name: MILLA MOON Address: [place] [address]
--- OUTSIDE RECORDS SUMMARY | 2023-07-04 14:53 | XMS_ITS | Continuity of Care Document ---
Author Name Unknown Organization [facility] Address [address] [place] [address]- Care Team Providers Care Secretary Name Role Phone Sara Mckeon MD Primary Care Physician Encounter [facility] [place] Date(s): 08/04/22 - 08/11/22 [facility] [address] [place] [address]- Encounter Diagnosis Retinal hemorrhage, right(Discharge Diagnosis) - 08/04/22 Urinary tract obstruction by kidney stone(Discharge Diagnosis) - 08/04/22 Attending Physician: Sara Mckeon MD Allergies, Adverse [...] Acute 09/05/22 14:23:00 EST, 08/06/22 14:22:00 EST, [facility], Partial fill upon patient request if the prescription is for a sc... Start Date: 08/06/22 Stop Date: 09/05/22 Status: Ordered Diflucan 150 mg oral tablet 1 tablet = 150 mg, By Mouth, Once, # 1 tablet, 0 Refills, Soft Stop, 06/17/22 14:50:00 EDT, Tablet,[facility], Partial fill upon patient request if the prescription is for a schedule II opioiddrug., 158, cm, 06/09/22 11:58:00 EDT, Height Start Date: 06/17/22 Status: Ordered ketorolac 30 mg/mL injectable solution = 30 mg, Intramuscular, Once, Left deltoid [facility] 19076-908-29 Lot [id number] Exp 01/2023, # 1 mL, 0 Refills, [...] 08/12/22 14:23:00 EST, 08/06/22 14:23:00 EST, Tablet, [facility], Partial fill upon patient request if the prescription is for a schedule II opioid drug., 158,... Start Date: 08/06/22 Stop Date: 08/12/22 Status: Ordered sertraline 25 mg oral tablet 1 tablet = 25 mg, By Mouth, Daily, DOSE INCREASE, take with 50mg dose for total of 75mg once daily., # 30 tablet, 3 Refills, Maintenance, 05/30/21 15:28:00 EDT, Tablet, [facility], Partial fillupon patient request if the [...] Effective Dates Health Status Clinical Service Informant Retinal hemorrhage, right Discharge Diagnosis 08/04/22 Urinary tract obstruction by kidney stone Discharge Diagnosis 08/04/22 Vital Signs Most recent to oldest [Reference Range]: 1 Height 158 cm (08/04/22 3:48 PM) Weight 70.7 kg (08/04/22 3:48 PM) Oxygen Saturation [94-100 %] 100 % (08/04/22 3:48 PM) Pulse Rate [55-90 bpm] 76 bpm (08/04/22 3:48 PM) Body Mass Index [18.5-24.99 kg/m2] 28.32 kg/m2 *H* (08/04/22 3:48 PM) Blood Pressure [90-138/55-84 mm Hg] 132/ 88mm Hg (08/04/22 3:48 PM) Blood pressure sites Arm, left (08/04/22 3:48 PM) Social History Social History Type Response Smoking Status Never (less than 100 in lifetime) entered on: 08/03/20 Sex Note * Isabella Britton: PERFORM, SIGN, VERIFY Event Display: Patient Education/Instruction Authored Date: [id number] [facility] *[facility] Clinical Summary Name PATRIC MOON Age 41 Years 1980 PCP Linda YATES, Sraa Schuster PCP Visit Date 08/04/2022 15:45:00 Additional Instructions: Scheduled Appointments?? Future Appointments ?AN[facility]??[place] ?[address]??[place],??[place],??[address] ?Phone:??[phone]?Fax:??-- ?Appt. Date:??08/18/2022?11:00 AM ?Scheduled Provider:??[facility] [place] [facility] Rm 1 ?[facility] ?[address]??[place],??[place],??[address] ?Phone:??--?Fax:??-- ?Appt. Date:??08/21/2022?12:40 PM ?Scheduled Provider:??Sara Mckeon MD Follow-Up Instructions ?? Diagnosis Retinal hemorrhage, right eye; Calculus of kidney Medications: Please continue your medications until treatment is completed or stopped by your provider. Discuss any questions related to medications with your provider. Medications to Continue with No Changes These medications were not printed or sent to your pharmacy Acetaminophen (Tylenol 8 Hour 650 mg oral tablet, extended release) 2 tab(s) Oral every 8 hours. Next Dose: Amphetamine-Dextroamphetamine (Adderall XR 20 mg oral capsule, extended release) 1 capsule Oral Daily in the morning. Next Dose: bifidobacterium-lactobacillus (Probiotic Formula) Oral Daily. Next Dose: Cyclobenzaprine (cyclobenzaprine 5 mg oral tablet) 1 tab(s) Oral 3 times a day as needed Pain , Moderate. Caution, may cause sedation. Refills: 0. Next Dose: Fluconazole (Diflucan 150 mg oral tablet) 1 tab(s) Oral once. Refills: 0. Next Dose: Ketorolac (ketorolac 30 mg/mL injectable solution) 30 Milligram Intramuscular once. Left deltoid [facility] 63252-357-44 Lot [id number] Exp 01/2023. Next Dose: Phenazopyridine (Pyridium 200 mg oral tablet) 1 tab(s) Oral 3 times a day for 3 Days. Refills: 1. Next Dose: Sertraline (sertraline 25 mg oral tablet) 1 tab(s) Oral Daily. DOSE INCREASE, take with 50mg dose for total of 75mg once daily.. Refills: 3. Next Dose: Sertraline (sertraline 50 mg oral tablet) 1 tab(s) Oral Daily. Refills: 1. Next Dose: Allergy Info:?? NKA Medications Given This Visit Future Orders ?No future orders Vital Signs Height 158 cm Weight 70.7 kg BMI 28.32 kg/m2 Blood Pressure 132 mm Hg/88 mm Hg Temperature Pulse Rate 76 bpm Respiratory Rate 02 Sat Mode of Delivery 100 %/ You can now view a summary of your hospital visit from the comfort of your home through a free online portal called [employer]. [employer] is a website that allows you to securely view your medical information including discharge summary, medications and follow-up visits. ??You can alsosend a secure electronic message to your doctor???s office to request appointments, renew medications or just ask a question. You can enroll at [email or web address] or register during your next [...] primary care provider, you may find a [facility] provider by calling [facility] at [phone]. For information about the plan of care [...] Team Personnel Name: Sara Mckeon MD Position: [facility] Primary Care Physician Member Role: PCP Address: Address: [address] [place] [address] [place] [address] Care Team Related Persons Name: ULISSES MOON Address: [address] [place] [address] Name: MILLA MOON Address: home [address] [place] [address]
--- OUTSIDE RECORDS SUMMARY | 2023-07-04 14:53 | XMS_ITS | Continuity of Care Document ---
Author Name Unknown Organization [facility] ter Address [address] [place] [address]- Care Team Providers Care Director Distribution Name Role Phone Sara Mckeon MD Primary Care Physician Encounter [facility] Date(s): 10/20/22 - 10/21/[address] [address]- Discharge Disposition: A-D/C Home Attending Physician: Erik Estrada MD Admitting Physician: Erik Estrada MD Referring Physician: Not on Staff, Referring [...] Left deltoid [facility] 48731-133-04 Lot [id number] Exp 01/2023, # 1 mL, 0 Refills, [...] Exam Date Time Procedure Performing Provider Status 10/20/22 10:12 PM US Pelvic Transvaginal Mayur Bang; Auth (Verified) Notes: (US Pelvic Transvaginal) Reason For Exam: Pelvic Pain;Other: RESULT: US Pelvic Transvaginal US Pelvic Transabdominal, US Pelvic Doppler Comp, US Pelvic Transvaginal HX OF PRESENT ILLNESS: Pt c o right sided abdominal pain, accompanied with dysuria. Pt has hx kidney stones, sepsis. Pt admits to nausea denies vomiting. Pt denies sob, c p. Pt admits to chills; Reason: Pelvic Pain; Clinical Question(s): Torsion COMPARISON: None TECHNIQUE: Transabdominal and transvaginal pelvic ultrasound with grayscale, color Doppler, and spectral Doppler analysis. FINDINGS: UTERUS: Size: 8.3 x 3.6 x 4.8 cm, volume 73.8 cc. Endometrial thickness: 0.9 cm. Morphology: Normal configuration and echotexture. Few nabothian cysts. RIGHT OVARY: Size: 3.3 x 1.6 x 3.1 cm, volume 8.3 cc. Morphology: Normal echotexture. No pathologic cysts or mass. Normal arterial and venous waveforms. LEFT OVARY: Size: 2.2 x 2.3 x 2.2 cm, volume 5.8 cc. Morphology: Normal echotexture. No pathologic cysts or mass. Normal arterial and venous waveforms. ADNEXA: Normal. No adnexal masses or fluid collections. IMPRESSION: Normal pelvic ultrasound. No sonographic evidence of ovarian torsion. I have personally reviewed the images and I agree with this report. WSN: [id number] Ordering Physician: Erik Estrada MD Dictated By: Christine Nava DO Dictated Date/Time: 10/20/22 11:34 p Reviewed By: Abdi Maynard MD Signed By: Abdi Maynard MD Signed Date/Time: 10/20/22 11:39 pm Transcribed By: GLENYS Transcribed Date/Time: 10/20/22 10:23 pm * Exam Date Time Procedure Performing Provider Status 10/20/22 10:12 PM US Pelvic Doppler Comp Mayur Bang fadumo; Auth (Verified) Notes: (US Pelvic Doppler Comp) Reason For Exam: Pelvic Pain;Other: RESULT: US Pelvic Doppler Comp US Pelvic Transabdominal, US Pelvic Doppler Comp, US Pelvic Transvaginal HX OF PRESENT ILLNESS: Pt c o right sided abdominal pain, accompanied with dysuria. Pt has hx kidney stones, sepsis. Pt admits to nausea denies vomiting. Pt denies sob, c p. Pt admits to chills; Reason: Pelvic Pain; Clinical Question(s): Torsion COMPARISON: None TECHNIQUE: Transabdominal and transvaginal pelvic ultrasound with grayscale, color Doppler, and spectral Doppler analysis. FINDINGS: UTERUS: Size: 8.3 x 3.6 x 4.8 cm, volume 73.8 cc. Endometrial thickness: 0.9 cm. Morphology: Normal configuration and echotexture. Few nabothian cysts. RIGHT OVARY: Size: 3.3 x 1.6 x 3.1 cm, volume 8.3 cc. Morphology: Normal echotexture. No pathologic cysts or mass. Normal arterial and venous waveforms. LEFT OVARY: Size: 2.2 x 2.3 x 2.2 cm, volume 5.8 cc. Morphology: Normal echotexture. No pathologic cysts or mass. Normal arterial and venous waveforms. ADNEXA: Normal. No adnexal masses or fluid collections. IMPRESSION: Normal pelvic ultrasound. No sonographic evidence of ovarian torsion. I have personally reviewed the images and I agree with this report. WSN: [id number] Ordering Physician: Erik Estrada MD Dictated By: Christine Nava DO Dictated Date/Time: 10/20/22 11:34 p Reviewed By: Abdi Maynard MD Signed By: Abdi Maynard MD Signed Date/Time: 10/20/22 11:39 pm Transcribed By: GLENYS Transcribed Date/Time: 10/20/22 10:23 pm * Exam Date Time Procedure Performing Provider Status 10/20/22 10:12 PM US Pelvic Transabdominal Isma Bang; Auth (Verified) Notes: (US Pelvic Transabdominal) Reason For Exam: Pelvic Pain;Other: RESULT: US Pelvic Transabdominal US Pelvic Transabdominal, US Pelvic Doppler Comp, US Pelvic Transvaginal HX OF PRESENT ILLNESS: Pt c o right sided abdominal pain, accompanied with dysuria. Pt has hx kidney stones, sepsis. Pt admits to nausea denies vomiting. Pt denies sob, c p. Pt admits to chills; Reason: Pelvic Pain; Clinical Question(s): Torsion COMPARISON: None TECHNIQUE: Transabdominal and transvaginal pelvic ultrasound with grayscale, color Doppler, and spectral Doppler analysis. FINDINGS: UTERUS: Size: 8.3 x 3.6 x 4.8 cm, volume 73.8 cc. Endometrial thickness: 0.9 cm. Morphology: Normal configuration and echotexture. Few nabothian cysts. RIGHT OVARY: Size: 3.3 x 1.6 x 3.1 cm, volume 8.3 cc. Morphology: Normal echotexture. No pathologic cysts or mass. Normal arterial and venous waveforms. LEFT OVARY: Size: 2.2 x 2.3 x 2.2 cm, volume 5.8 cc. Morphology: Normal echotexture. No pathologic cysts or mass. Normal arterial and venous waveforms. ADNEXA: Normal. No adnexal masses or fluid collections. IMPRESSION: Normal pelvic ultrasound. No sonographic evidence of ovarian torsion. I have personally reviewed the images and I agree with this report. WSN: [id number] Ordering Physician: Erik Estrada MD Dictated By: Christine Nava DO Dictated Date/Time: 10/20/22 11:34 p Reviewed By: Abdi Maynard MD Signed By: Abdi Maynard MD Signed Date/Time: 10/20/22 11:39 pm Transcribed By: GLENYS Transcribed Date/Time: 10/20/22 10:23 pm Vital Signs Most recent to oldest [Reference Range]: 1 2 3 Oxygen Saturation [94-100 %] 100 % (2/13/23 8:03 PM) 98 % (10/20/22 6:48 PM) 100 % (10/20/22 6:09 PM) Pulse Rate [55-90 bpm] 69 bpm (10/20/22 8:03 PM) 70 bpm (10/20/22 6:48 PM) 70 bpm (10/20/22 6:09 PM) Blood Pressure [90-138/55-84 mm Hg] 114/83mm Hg (10/20/22 8:03 PM) 103/77mm Hg (10/20/22 6:48 PM) 108/70mm Hg (10/20/22 6:09 PM) Respiratory Rate [16-30 br/min] 20 br/min (10/20/22 8:03 PM) 16 br/min (10/20/22 6:09 PM) 18 br/min (10/20/22 1:42 PM) Temperature [96.8-100.4 DegF] 98.3 DegF (10/20/22 6:48 PM) 98.1 DegF (10/20/22 6:09 PM) 98.2 DegF (10/20/22 3:29 PM) Mode of Delivery (Oxygen) Room air (10/20/22 8:03 PM) Room air (10/20/22 6:48 PM) Room air (10/20/22 6:09 PM) Blood pressure sites Arm, right (10/20/22 8:03 PM) Arm, right (10/20/22 6:48 PM) Arm, right (10/20/22 6:09 PM) Temperature Route Oral (10/20/22 6:48 PM) Oral (10/20/22 6:09 PM) Oral (10/20/22 3:29 PM) Social History Social History Type Response Smoking Status Never (less than 100 in lifetime) entered on: 08/03/20 Sex US Pelvis transvaginal * [facility]SP[facility]erscribe , CIS S: TRANSCRIBE Christine Nava DO F: SIGN Caesar YATES, Abdi D: VERIFY Event Display: Result: Authored Date: [id number] US Pelvic Transabdominal, US Pelvic Doppler Comp, US Pelvic Transvaginal HX OF PRESENT ILLNESS: Pt c o right sided abdominal pain, accompanied with dysuria. Pt has hx kidney stones, sepsis. Pt admits to nausea denies vomiting. Pt denies sob, c p. Pt admits to chills; Reason: Pelvic Pain; Clinical Question(s): Torsion COMPARISON: None TECHNIQUE: Transabdominal and transvaginal pelvic ultrasound with grayscale, color Doppler, and spectral Doppler analysis. FINDINGS: UTERUS: Size: 8.3 x 3.6 x 4.8 cm, volume 73.8 cc. Endometrial thickness: 0.9 cm. Morphology: Normal configuration and echotexture. Few nabothian cysts. RIGHT OVARY: Size: 3.3 x 1.6 x 3.1 cm, volume 8.3 cc. Morphology: Normal echotexture. No pathologic cysts or mass. Normal arterial and venous waveforms. LEFT OVARY: Size: 2.2 x 2.3 x 2.2 cm, volume 5.8 cc. Morphology: Normal echotexture. No pathologic cysts or mass. Normal arterial and venous waveforms. ADNEXA: Normal. No adnexal masses or fluid collections. IMPRESSION: Normal pelvic ultrasound. No sonographic evidence of ovarian torsion. I have personally reviewed the images and I agree with this report. WSN: [id number] Ordering Physician: Erik Estrada MD Dictated By: Christine Nava DO Dictated Date/Time: 10/20/22 11:34 p Reviewed By: Abdi Maynard MD Signed By: Abdi Maynard MD Signed Date/Time: 10/20/22 11:39 pm Transcribed By: GLENYS Transcribed Date/Time: 10/20/22 10:23 pm Note * [facility]SP[facility]ers[facility] , CIS S: TRANSCRIBE Christine Nava DO: SIGN Abdi Maynard MD: VERIFY Event Display: Result: Authored Date: [id number] US Pelvic Transabdominal, US Pelvic Doppler Comp, US Pelvic Transvaginal HX OF PRESENT ILLNESS: Pt c o right sided abdominal pain, accompanied with dysuria. Pt has hx kidney stones, sepsis. Pt admits to nausea denies vomiting. Pt denies sob, c p. Pt admits to chills; Reason: Pelvic Pain; Clinical Question(s): Torsion COMPARISON: None TECHNIQUE: Transabdominal and transvaginal pelvic ultrasound with grayscale, color Doppler, and spectral Doppler analysis. FINDINGS: UTERUS: Size: 8.3 x 3.6 x 4.8 cm, volume 73.8 cc. Endometrial thickness: 0.9 cm. Morphology: Normal configuration and echotexture. Few nabothian cysts. RIGHT OVARY: Size: 3.3 x 1.6 x 3.1 cm, volume 8.3 cc. Morphology: Normal echotexture. No pathologic cysts or mass. Normal arterial and venous waveforms. LEFT OVARY: Size: 2.2 x 2.3 x 2.2 cm, volume 5.8 cc. Morphology: Normal echotexture. No pathologic cysts or mass. Normal arterial and venous waveforms. ADNEXA: Normal. No adnexal masses or fluid collections. IMPRESSION: Normal pelvic ultrasound. No sonographic evidence of ovarian torsion. I have personally reviewed the images and I agree with this report. WSN: [id number] Ordering Physician: Erik Estrada MD Dictated By: Christine Nava DO Dictated Date/Time: 10/20/22 11:34 p Reviewed By: Abdi Maynard MD Signed By: Abdi Maynard MD Signed Date/Time: 10/20/22 11:39 pm Transcribed By: GLENYS Transcribed Date/Time: 10/20/22 10:23 pm US Pelvis * [facility] , CIS S: TRANSCRIBE Christine Nava DO: SIGN Abdi Maynard MD: VERIFY Event Display: Result: Authored Date: [id number] US Pelvic Transabdominal, US Pelvic Doppler Comp, US Pelvic Transvaginal HX OF PRESENT ILLNESS: Pt c o right sided abdominal pain, accompanied with dysuria. Pt has hx kidney stones, sepsis. Pt admits to nausea denies vomiting. Pt denies sob, c p. Pt admits to chills; Reason: Pelvic Pain; Clinical Question(s): Torsion COMPARISON: None TECHNIQUE: Transabdominal and transvaginal pelvic ultrasound with grayscale, color Doppler, and spectral Doppler analysis. FINDINGS: UTERUS: Size: 8.3 x 3.6 x 4.8 cm, volume 73.8 cc. Endometrial thickness: 0.9 cm. Morphology: Normal configuration and echotexture. Few nabothian cysts. RIGHT OVARY: Size: 3.3 x 1.6 x 3.1 cm, volume 8.3 cc. Morphology: Normal echotexture. No pathologic cysts or mass. Normal arterial and venous waveforms. LEFT OVARY: Size: 2.2 x 2.3 x 2.2 cm, volume 5.8 cc. Morphology: Normal echotexture. No pathologic cysts or mass. Normal arterial and venous waveforms. ADNEXA: Normal. No adnexal masses or fluid collections. IMPRESSION: Normal pelvic ultrasound. No sonographic evidence of ovarian torsion. I have personally reviewed the images and I agree with this report. WSN: [id number] Ordering Physician: Erik Estrada MD Dictated By: Christine Nava DO Dictated Date/Time: 10/20/22 11:34 p Reviewed By: Abdi Maynard MD Signed By: Abdi Maynard MD Signed Date/Time: 10/20/22 11:39 pm Transcribed By: GLENYS Transcribed Date/Time: 10/20/22 10:23 pm Patient Care team information Care Team Personnel Name: Sara Mckeon MD [facility] Primary Care Physician Member Role: PCP Address: Address: [address] [place] [id number] Name[facility] Attending Position: [facility] ED Attendings Patient Name: Kathi Davenport RN Position: [facility] ED RN W/OE and Tasks Member Role: Patient Care Provider Name: Erik Estrada MD Position: [facility] ED Medicine MD Member Role: ED Attending Physician Address: Address: [address] [place] [address] [place] [address]- Name: Coretta Quintanilla Position: [facility] TA [facility] Care Team Related Persons Name: ULISSES MOON Address: home [address] [place] [id number] Name: MILLA MOON Address: home [address] [place] [address]
--- OUTSIDE RECORDS SUMMARY | 2023-07-04 14:53 | XMS_ITS | Continuity of Care Document ---
Author Name Unknown Organization [facility] Address [address] [place] [address]- Care Team Providers Care Executive Sales Manager Name Role Phone Linda YATES, Sara Schuster Primary Care Physician [place] [facility] [place] 06/11/22 - 07/11/22 [facility] [address] [place] [address]- Allergies, Adverse Reactions, Alerts No Known Allergies [...] Intramuscular, Once, Left deltoid [facility] 54062-541-03 Lot [id number] Exp 01/2023, # 1 mL, 0 Refills, [...] 3 Refills, Maintenance, 05/30/21 15:28:00 EDT, Tablet, [facility], Partial fillupon patient request if the prescription is for a s... Start Date: 05/30/21 Status: Ordered sertraline 50 mg oral tablet 1 tablet = 50 mg, By Mouth, Daily, # 90 tablet, 1 Refills, Maintenance, 05/30/21 15:27:00 EDT, Tablet, [facility], Partial fill upon patient request if [...] Sex Patient Care team information Personnel Name: Sara Mckeon MD Address: [facility] [place], [place] [address]
--- OUTSIDE RECORDS SUMMARY | 2023-07-04 14:53 | XMS_ITS | Continuity of Care Document ---
Author Name Unknown Organization [facility] Address [address] [place] [address]- Care Team Providers Care Sr Account Executive Name Role Phone Sara Mckeon MD Primary Care Physician [place] [facility] [place] 01/05/23 - 02/04/23 [facility] [address] [place] [address]- Allergies, Adverse Reactions, Alerts No Known Allergies [...] 12/18/22 15:15:00 EDT, Route to Pharmacy Electronically, [facility], Partial fill upon patient request... Start [...] 01/08/23 11:12:00 EDT, Route to Pharmacy Electronically, [facility], Partial fill upon patient request if the prescription is for... Start Date: 01/08/23 Stop Date: 02/08/23 Status: Ordered Diflucan 150 mg oral tablet 1 tablet = 150 mg, By Mouth, Once, # 1 tablet, 0 Refills, Soft Stop, 06/17/22 14:50:00 EDT, Tablet,[facility], Partial fill upon patient request if the prescription is for a schedule II opioiddrug., 158, cm, 06/09/22 11:58:00 EDT, Height Start Date: 06/17/22 Status: Ordered Effexor XR 37.5 mg oral capsule, extended release 37.5 mg, 1, capsule, By Mouth, Daily, # 30 capsule, Refills 1, Tot. Refills 1, Maintenance, 08/21/22 13:08:00 EST, Route to Pharmacy Electronically, [facility], Partial fill upon patient request if the prescription is for a schedule II opioid dr... Start Date: 08/21/22 Status: Ordered Flomax 0.4 mg oral capsule 0.4 mg, 1, capsule, By Mouth, Daily, # 30 capsule, Refills 1, Tot. Refills 1, Maintenance, 10/09/2310:44:00 EST, Route to Pharmacy Electronically, [facility], Partial fill upon patient requestif the prescription is for a schedule II opioid gabriela... Start Date: 10/09/22 Status: Ordered fluconazole 150 mg oral tablet 1 tablet = 150 mg, By Mouth, Once, epeat dose if still having symptoms in 72 hours, # 2 tablet, 0 Refills, Soft Stop, 10/03/22 16:21:00 EST, Tablet, [facility], Partial fill upon patient request if the prescription is for a schedule II opioid dr... Start Date: 10/03/22 Status: Ordered ketorolac 30 mg/mL injectable solution = 30 mg, Intramuscular, Once, Left deltoid [facility] 02685-551-76 Lot [id number] Exp 01/2023, # 1 mL, 0 Refills, [...] Team Personnel Name: Sara Mckeon MD Position: [facility] Physician - Primary Care Member Role: PCP Address: Address: [address] [place] [address]- Care Team Related Persons Name: MOON ULISSES Address: home [address] [place], [place] [id number] Name: MILLA MOON Address: home [address] [place] [phone]
--- OUTSIDE RECORDS SUMMARY | 2023-07-04 14:53 | XMS_ITS | Continuity of Care Document ---
Author Name Unknown Organization [facility] Address [address] [facility] [place] [address]- Care Team Providers Care Director Of Grants Name Role Phone Sara Mckeon MD Primary Care Physician [place] [facility] [place] 07/08[place]22 - 08/07/22 [facility] [address] [place] [address]- Attending Physician: Adeline Deluca Admitting Physician: AdmtrAdeline [...] Acute 09/05/22 14:23:00 EST, 08/06/22 14:22:00 EST, [facility], Partial fill upon patient request if [...] 30 mg, Intramuscular, Once, Left deltoid [facility] 04392-394-82 Lot [id number] Exp 01/2023, # 1 mL, 0 Refills, [...] Team Personnel Name: Sara Mckeon MD Position: [facility] Primary Care Physician Member Role: PCP Address: Address: [address] [place] [address]- Care Team Related Persons Name: ULISSES MOON Address: home [address] [place] [address] Name: MILLA MOON Address: home [address] [place] [address]
--- OUTSIDE RECORDS SUMMARY | 2023-07-04 14:53 | XMS_ITS | Continuity of Care Document ---
Author Name Unknown Organization [facility] Address [address] [place] [address]- Care Team Providers Care Healthcare Social Worker Name Role Phone Jennifer POWELL, Dominik Pelletier Primary Care Physician [id number] Date(s): 01/14/21 - 01/21/21 [facility] [address] [place] [address]- Encounter Diagnosis Major depressive disorder, single episode with atypical features(Discharge Diagnosis) - 01/17/21 Ear itching(Discharge Diagnosis) - 01/17/21 Attending Physician: Dominik Rodriguez NP Allergies, Adverse Reactions, Alerts Substance Reaction Severity Status NKA Active Medications sertraline 25 mg oral tablet 1 tablet = 25 mg, By Mouth, Daily, DOSE INCREASE 01/14/21, take with 50mg dose for total of 75mg once daily., # 30 tablet, 3 Refills, Maintenance, 01/14/21 9:17:00 EDT, Tablet, [facility], Partial fill upon patient request if the prescription is... Start Date: 01/14/21 Status: Ordered sertraline 50 mg oral tablet 1 tablet = 50 mg, By Mouth, Daily, Take 1/2 tab daily x7 days, then increase to full tab (total 50mg), # 30 tablet, 4 Refills, Maintenance, 09/14/20 14:15:00 EST, Tablet, [facility], Partial fill upon patient request if [...] single episode with atypical features Discharge Diagnosis 01/17/21 Ear itching Discharge Diagnosis 01/17/21 Vital Signs Most recent to oldest [Reference Range]: 1 Height 157 cm (01/14/21 9:03 AM) Social History Social History Type Response Smoking Status Never (less than 100 in lifetime) entered on: 08/03/20 Sex
--- OUTSIDE RECORDS SUMMARY | 2023-07-04 14:53 | XMS_ITS | Continuity of Care Document ---
Author Name Unknown Organization [facility] Address [address] [place] [address]- Care Team Providers Care Seat Trimmer Name Role Phone Ambar POWELL, Jinny Marquez Primary Care Physician [place] [facility] [place] 05/30/21 - 06/29/21 [facility] [address] [place], [place] [address] Allergies, Adverse Reactions, Alerts Substance Reaction Severity Status NKA Active Medications sertraline 25 mg oral tablet 1 tablet = 25 mg, By Mouth, Daily, DOSE INCREASE, take with 50mg dose for total of 75mg once daily., # 30 tablet, 3 Refills, Maintenance, 05/30/21 15:28:00 EDT, Tablet, [facility], Partial fillupon patient request if the prescription is for a s... Start Date: 05/30/21 Status: Ordered sertraline 50 mg oral tablet 1 tablet = 50 mg, By Mouth, Daily, # 90 tablet, 1 Refills, Maintenance, 05/30/21 15:27:00 EDT, Tablet, [facility], Partial fill upon patient request if the prescription is for a schedule II opioid drug., 157, cm, 01/14/21 9:03:00 EDT, Height Start Date: 05/30/21 Status: Ordered Vistaril pamoate 25 mg oral capsule See Instructions, PRN for anxiety, Take 1 capsule as needed for anxiety, not to exceed 4 times per day, # 30 capsule, 0 Refills, Maintenance, 08/03/20 10:29:00 EST, Capsule, [facility], Partialfill upon patient request, 157, cm, 08/03/20 8:25:0... 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
--- OUTSIDE RECORDS SUMMARY | 2023-07-04 14:53 | XMS_ITS | Continuity of Care Document ---
Author Name Unknown Organization [facility] Address [address] [place] [address]- Care Team Providers Care Tumbling Barrel Painter Name Role Phone Sara Mckeon MD Primary Care Physician Encounter [facility] Date(s): 12/17/22 - 01/18/23 [facility] [address] [place] [address]- Attending Physician: Sara Mckeon MD Allergies, Adverse [...] 12/18/22 15:15:00 EDT, Route to Pharmacy Electronically, [facility], Partial fill upon [...] 01/08/23 11:12:00 EDT, Route to Pharmacy Electronically, [facility], Partial fill upon patient request if the prescription is for... Start Date: 01/08/23 Stop Date: 02/08/23 Status: Ordered Diflucan 150 mg oral tablet 1 tablet = 150 mg, By Mouth, Once, # 1 tablet, 0 Refills, Soft Stop, 06/17/22 14:50:00 EDT, Tablet,[facility], Partial [...] = 30 mg, Intramuscular, Once, Left deltoid [facility] 52704-666-27 Lot [id number] Exp 01/2023, # 1 mL, 0 Refills, [...] Personnel Name: Sara Mckeon MD Position: S Primary Care Physician Member Role: PCP Address: Address: [address] [place] [address]- Care Team Related Persons Name: ULISSES MOON Address: home [address] [place] [address] Name: MILLA MOON Address: home [address] [place] [address]
--- OUTSIDE RECORDS SUMMARY | 2023-07-04 14:53 | XMS_ITS | Continuity of Care Document ---
Author Name Unknown Organization [facility] Address [address] [place] [address]- Care Team Providers Care Powder Coater Name Role Phone Sara Mckeon MD Primary Care Physician [place] [facility] [place] 09/04/22 [facility] [address] [place] [address]- Allergies, Adverse Reactions, Alerts No Known Allergies [...] 0 Refills, Soft Stop, 06/17/22 14:50:00 EDT, Tablet,[facility], Partial fill upon patient request if the prescription is for a schedule II opioiddrug., 158, cm, 06/09/22 11:58:00 EDT, Height Start Date: 06/17/22 Status: Ordered Effexor XR 37.5 mg oral capsule, extended release 37.5 mg, 1, capsule, By Mouth, Daily, # 30 capsule, Refills 1, Tot. Refills 1, Maintenance, 08/21/22 13:08:00 EST, Route to Pharmacy Electronically, [facility], Partial fill upon patient request if the prescription is for a schedule II opioid drMalena. Start Date: 08/21/22 Status: Ordered ketorolac 30 mg/mL injectable solution = 30 mg, Intramuscular, Once, Left deltoid [facility] 28343-799-11 Lot [id number] Exp 01/2023, # 1 mL, 0 Refills, [...] Team Personnel Name: Sara Mckeon MD Position: [facility] Primary Care Physician Member Role: PCP Address: Address: [address] [place] [address]- Care Team Related Persons Name: ULISSES MOON Address: [place] [address] Name: MILLA MOON Address: [place] [address]
--- OUTSIDE RECORDS SUMMARY | 2023-07-04 14:53 | XMS_ITS | Continuity of Care Document ---
Author Name Unknown Organization [facility] Address [address] [place] [address]- Care Team Providers Care Carpenter Prototype Name Role Phone Linda YATES, Sara Schuster Primary Care Physician Encounter [facility] Date(s): 06/11/22 - 07/11/22 [facility] [address] [place] [address]- Allergies, Adverse Reactions, Alerts No Known Allergies [...] 30 mg, Intramuscular, Once, Left deltoid [facility] [id number] Lot [id number] Exp 01/2023, # 1 mL, 0 Refills, [...] 3 Refills, Maintenance, 05/30/21 15:28:00 EDT, Tablet, [facility], Partial fillupon patient request if the prescription is for a s... Start Date: 05/30/21 Status: Ordered sertraline 50 mg oral tablet 1 tablet = 50 mg, By Mouth, Daily, # 90 tablet, 1 Refills, Maintenance, 05/30/21 15:27:00 EDT, Tablet, [facility], Partial fill upon patient request if [...] Name: Linda YATES, Sara Schuster Address: [facility] [place] [address]
--- OUTSIDE RECORDS SUMMARY | 2023-07-04 14:53 | XMS_ITS | Continuity of Care Document ---
Author Name Unknown Organization [facility] Address [address] [place] [address]- Care Team Providers Care Muffler Hand Name Role Phone Jennifer POWELL, Dominik Pelletier Primary Care Physician [place] [facility] [place] 11/27/20 - 12/27/20 [facility] [address] [place] [address]- Allergies, Adverse Reactions, Alerts Substance Reaction Severity Status NKA Active Medications sertraline 50 mg oral tablet 1 tablet = 50 mg, By Mouth, Daily, Take 1/2 tab daily x7 days, then increase to full tab (total 50mg), # 30 tablet, 4 Refills, Maintenance, 09/14/20 14:15:00 EST, Tablet, [facility], Partial fill upon patient request if the prescription is for a... Start Date: 09/14/20 Status: Ordered Vistaril pamoate 25 mg oral capsule See Instructions, PRN for anxiety, Take 1 capsule as needed for anxiety, not to exceed 4 times per day, # 30 capsule, 0 Refills, Maintenance, 08/03/20 10:29:00 EST, Capsule, [facility], Partialfill upon patient request, 157, cm, 08/03/20 8:25:0... 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
--- OUTSIDE RECORDS SUMMARY | 2023-07-04 14:53 | XMS_ITS | Continuity of Care Document ---
Author Name Unknown Organization [facility] Address [address] [place] [address]- Care Team Providers Care Waxing Machine Operator Helper Name Role Phone Sara Mckeon MD Primary Care Physician [place] [facility] [place] 11/06/22 [facility] [address] [place] [address]- Allergies, Adverse Reactions, Alerts No Known Allergies [...] 08/21/22 13:08:00 EST, Route to Pharmacy Electronically, [facility], Partial fill upon patient request if the prescription is for a schedule II opioid dr... Start Date: 08/21/22 Status: Ordered Flomax 0.4 mg oral capsule 0.4 mg, 1, capsule, By Mouth, Daily, # 30 capsule, Refills 1, Tot. Refills 1, Maintenance, 10/09/2310:44:00 EST, Route to Pharmacy Electronically, [facility], Partial fill upon patient requestif the prescription is for a schedule II opioid gabriela... Start Date: 10/09/22 Status: Ordered fluconazole 150 mg oral tablet 1 tablet = 150 mg, By Mouth, Once, epeat dose if still having symptoms in 72 hours, # 2 tablet, 0 Refills, Soft Stop, 10/03/22 16:21:00 EST, Tablet, [facility], Partial fill upon patient request if the prescription is for a schedule II opioid dr... Start Date: 10/03/22 Status: Ordered ketorolac 30 mg/mL injectable solution = 30 mg, Intramuscular, Once, Left deltoid [facility] [id number] Lot [id number] Exp 01/2023, # 1 mL, 0 Refills, [...] Team Personnel Name: Sara Mckeon MD Position: [facility] Primary Care Physician Member Role: PCP Address: Address: [address] [place] [address]- Care Team Related Persons Name: ULISSES MOON Address: home [address] [place] [address] Name: MILLA MOON Address: home [address] [place] [address]
--- OUTSIDE RECORDS SUMMARY | 2023-07-04 14:53 | XMS_ITS | Continuity of Care Document ---
Author Name Unknown Organization [facility] Address [address] [place] [address]- Care Team Providers Care Senior Materials Planner Name Role Phone Sara Mckeon MD Primary Care Physician [id number] Date(s): 08/21/22 - 08/28/22 [facility] [address] [place] [address]- Encounter Diagnosis Major depressive disorder, recurrent(Discharge Diagnosis) - 08/21/22 History of kidney stones(Discharge Diagnosis) - 08/21/22 Night sweats(Discharge Diagnosis) - 08/21/22 Attending Physician: Sara Mckeon MD Allergies, Adverse [...] Acute 09/05/22 14:23:00 EST, 08/06/22 14:22:00 EST, [facility], Partial fill upon patient request if [...] opioid dr... Start Date: 08/21/22 Status: Ordered ketorolac 30 mg/mL injectable solution = 30 mg, Intramuscular, Once, Left deltoid [facility] 88504-423-99 Lot [id number] Exp 01/2023, # 1 mL, 0 Refills, [...] Status Clinical Service Informant Major depressive disorder, recurrent Discharge Diagnosis 08/21/22 History of kidney stones Discharge Diagnosis 08/21/22 Night sweats Discharge Diagnosis 08/21/22 Vital Signs Most recent to oldest [Reference Range]: 1 2 Height 158 cm (08/21/22 12:49 PM) 158 cm (08/21/22 12:43 PM) Weight 69.5 kg (08/21/22 12:43 PM) Oxygen Saturation [94-100 %] 99 % (08/21/22 12:43 PM) Pulse Rate [55-90 bpm] 50 bpm *L* (08/21/22 12:43 PM) Body Mass Index [18.5-24.99 kg/m2] 27.84 kg/m2 *H* (08/21/22 12:43 PM) Blood Pressure [90-138/55-84 mm Hg] 145/ 102mm Hg *H* (08/21/22 12:49 PM) 147/107mm Hg *H* (08/21/22 12:43 PM) Blood pressure sites Arm, left (08/21/22 12:49 PM) Arm, left (08/21/22 12:43 PM) Social History Social History Type Response Smoking Status Never (less than 100 in lifetime) entered on: 08/03/20 Sex Note * Isabella Britton: SIGN, VERIFY, PERFORM Event Display: Patient Education/Instruction Authored Date: [id number] [facility] *[employer] Clinical Summary Name PATRIC MOON Age 41 Years 1980 PCP Linda YATES, Sara Schuster PCP Visit Date 08/21/2022 12:17:00 Additional Instructions: Scheduled Appointments?? Future Appointments ?ANSHUL??[facility] ?[address]??[place],??[place],??[address] ?Phone:??[phone]?Fax:??-- ?Appt. Date:??08/18/2023?10:15 AM ?Scheduled Provider:??ANSHUL ABAD 1 Follow-Up Instructions ?? Diagnosis Medications: Please continue your medications until treatment is completed or stopped by your provider. Discuss any questions related to medications with your provider. New Medications [facility], [address] [place] [phone], [phone] Venlafaxine (Effexor XR 37.5 mg oral capsule, extended release) 1 capsule Oral Daily. Refills: 1. Next Dose: Medications to Continue Taking That Have Changed These medications were not printed or sent to your pharmacy - Sertraline (sertraline 100 mg oral tablet) 1.5 tab(s) Oral Daily. Refills: 0. Next Dose: Medications to Continue with No [...] solution) 30 Milligram Intramuscular once. Left deltoid [facility] [id number] Lot [id number] Exp 01/2023. Next Dose: Allergy Info:?? NKA Medications Given This Visit Future Orders ?No future orders Vital Signs Height 158 cm Weight 69.5 kg BMI 27.84 kg/m2 Blood Pressure 145 mm Hg/102 mm Hg Temperature Pulse Rate 50 bpm Respiratory Rate 02 Sat Mode of Delivery 99 %/ You can now view a summary of your hospital visit from the comfort of your home through a free online portal called [employer]. [employer] is a website that allows you to securely view your medical information including discharge summary, medications and follow-up visits. ??You can alsosend a secure electronic message to your doctor???s office to request appointments, renew medications or just ask a question. You can enroll at [email or web address] or register during your next office visit. [...] primary care provider, you may find a [facility] provider by calling [facility] [employer] Link at [phone]. For information about the plan of care including goals and instructions for your diagnosis, please see the patient education orders section of this document. Patient Education Materials?? The content of this educational material or handout may have been modified, supplemented, or adapted from its original content and format to support your individualized medical care. Patient Care team information Care Team Personnel Name: Linda YATES, Sara Schuster Position: [facility] Primary Care Physician Member Role: PCP Address: Address: [address] [place] [address]- [place] Care Team Related Persons Name: ULISSES MOON Address: home [address] [place] [address] Name: MILLA MOON Address: home [address] [place] [address]
--- OUTSIDE RECORDS SUMMARY | 2023-07-04 14:53 | XMS_ITS | Continuity of Care Document ---
Author Name Unknown Organization [facility] Address [address] [place] [address]- Care Team Providers Care Communications Controller Name Role Phone Linda YATES, Sara Schuster Primary Care Physician [place] [facility] [place] 07[place] [facility] [address] [place] [address]- Allergies, Adverse Reactions, Alerts No Known Allergies [...] = 30 mg, Intramuscular, Once, Left deltoid [facility] [id number] Lot [id number] Exp 01/2023, # 1 mL, 0 Refills, [...] tablet, 3 Refills, Maintenance, 05/30/21 15:28:00 EDT, [facility], [facility], Partial fillupon patient request if the prescription is for a s... Start Date: 05/30/21 Status: Ordered sertraline 50 mg oral tablet 1 tablet = 50 mg, By Mouth, Daily, # 90 tablet, 1 Refills, Maintenance, 05/30/21 15:27:00 EDT, Tablet, [facility], Partial fill upon patient request if [...] Name: Sara Mckeon MD Position: [facility] Primary Care Physician Member Role: PCP Address: Address: [address] [place] [address]- Care Team Related Persons Name: ULISSES MOON Address: home [address] [place] [address] Name: MILLA MOON Address: home [address] [place] [address]
--- OUTSIDE RECORDS SUMMARY | 2023-07-04 14:53 | XMS_ITS | Continuity of Care Document ---
Author Name Unknown Organization [facility] Address [address] [facility] [place] [address]- Care Team Providers Care Nutrition Services Worker Name Role Phone Linda YATES, Sara Schuster Primary Care Physician [place] [facility] [place] Date(s): 06/09/22 - 07/09/22 [facility] [address] [place] [address]- Allergies, Adverse Reactions, Alerts No Known Allergies [...] = 30 mg, Intramuscular, Once, Left deltoid [facility] [id number] Lot [id number] Exp 01/2023, # 1 mL, 0 Refills, Maintenance, 06/20/22 12:12:00 EDT, Partial fill upon patient request if the prescription is fora schedule II opioid drug. Start Date: 10/14/22 Status: Ordered sertraline 25 mg oral tablet 1 tablet = 25 mg, By Mouth, Daily, DOSE INCREASE, take with 50mg dose for total of 75mg once daily., # 30 tablet, 3 Refills, Maintenance, 05/30/21 15:28:00 EDT, Tablet, [facility], Partial fillupon patient request if the [...] Name: Linda YATES, Sara Schuster Address: [facility] [place] [address]
--- OUTSIDE RECORDS SUMMARY | 2023-07-04 14:53 | XMS_ITS | Continuity of Care Document ---
Author Name Unknown Organization [facility] Address [address] [place] [address]- Care Team Providers Care Felt Hanger Name Role Phone Jennifer POWELL, Dominik Pelletier Primary Care Physician [phone] [place] [facility] Date(s): 08/07/20 - 09/06/20 [facility] [address] [place] [address]- Allergies, Adverse Reactions, Alerts Substance Reaction Severity [...]
--- OUTSIDE RECORDS SUMMARY | 2023-07-04 14:53 | XMS_ITS | Continuity of Care Document ---
Author Name Unknown Organization [facility] Address [address] [place] [address]- Care Team Providers Care Field Engineer Name Role Phone Sara Mckeon MD Primary Care Physician [place] [facility] [place] Date(s): 12/08/22 - 01/07/23 [facility] [address] [place] [address]- Allergies, Adverse Reactions, Alerts No Known Allergies [...] 12/18/22 15:15:00 EDT, Route to Pharmacy Electronically, [facility], Partial fill upon [...] = 30 mg, Intramuscular, Once, Left deltoid [facility] 02144-510-27 Lot [id number] Exp 01/2023, # 1 mL, 0 Refills, [...] Name: Sara Mckeon MD Position: [facility] Primary Care Physician Member Role: PCP Address: Address: [address] [place] [id number] Care Team Related Persons Name: ULISSES MOON Address: home [address] [place] [id number] Name: MILLA MOON Address: home [address] [place], [place] [id number]
--- OUTSIDE RECORDS SUMMARY | 2023-07-04 14:53 | XMS_ITS | Continuity of Care Document ---
Author Name Unknown Organization [facility] Address [address] [place] [address]- Care Team Providers Care Cdl A Driver Name Role Phone Jennifer POWELL, Dominik Pelletier Primary Care Physician [place] [facility] [place] 12/12/20 - 01/11/21 [facility] [address] [place] [address]- Attending Physician: Adeline Deluca Admitting Physician: Adeline Deluca Referring Physician: Adeline Deluca Allergies, Adverse Reactions, Alerts Substance Reaction Severity Status NKA Active Medications sertraline 50 mg oral tablet 1 tablet = 50 mg, By Mouth, Daily, Take 1/2 tab daily x7 days, then increase to full tab (total 50mg), # 30 tablet, 4 Refills, Maintenance, 09/14/20 14:15:00 EST, Tablet, [facility], Partial fill upon patient request if the prescription is for a... Start Date: 09/14/20 Status: Ordered Vistaril pamoate 25 mg oral capsule See Instructions, PRN for anxiety, Take 1 capsule as needed for anxiety, not to exceed 4 times per day, # 30 capsule, 0 Refills, Maintenance, 08/03/20 10:29:00 EST, Capsule, [facility], Partialfill upon patient request, 157, cm, 08/03/20 8:25:0... 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
[2023-07-04] MEDS: Morphine Sulfate 4 MG/ML CARTRIDGE IVPUSH (14:54)
[2023-07-04] MEDS: ondansetron HCL 4 MG/2 ML VIAL IVPUSH (14:54)
[2023-07-04] MEDS: 0.9 % Sodium Chloride 1,000 ML 999 ML IV (14:54)
--- OUTSIDE RECORDS SUMMARY | 2023-07-04 14:54 | XMS_ITS | Continuity of Care Document ---
Author Name Unknown Organization [facility] Address [address] [place] [address]- Care Team Providers Care Representative Government Relations Name Role Phone Sara Mckeon MD Primary Care Physician [place] [facility] [place] 02/[place]/23 [facility] [address] [place] [address]- Allergies, Adverse Reactions, Alerts No Known Allergies [...] 12/18/22 15:15:00 EDT, Route to Pharmacy Electronically, [facility], Partial fill upon patient request... [...] 0 Refills, Soft Stop, 06/17/22 14:50:00 EDT, Tablet,[facility], Partial fill upon patient request if the prescription is for a schedule II opioiddrug., 158, cm, 06/09/22 11:58:00 EDT, Height Start Date: 06/17/22 Status: Ordered Effexor XR 37.5 mg oral capsule, extended release 37.5 mg, 1, capsule, By Mouth, Daily, # 30 capsule, Refills 1, Tot. Refills 1, Maintenance, 08/21/22 13:08:00 EST, Route to Pharmacy Electronically, [facility], Partial fill upon patient request if the prescription is for a schedule II opioid dr... Start Date: 08/21/22 Status: Ordered Flomax 0.4 mg oral capsule 0.4 mg, 1, capsule, By Mouth, Daily, # 30 capsule, Refills 1, Tot. Refills 1, Maintenance, 10/09/2310:44:00 EST, Route to Pharmacy Electronically, [facility], Partial fill upon patient requestif the prescription is for a schedule II opioid gabriela... Start Date: 10/09/22 Status: Ordered fluconazole 150 mg oral tablet 1 tablet = 150 mg, By Mouth, Once, epeat dose if still having symptoms in 72 hours, # 2 tablet, 0 Refills, Soft Stop, 10/03/22 16:21:00 EST, Tablet, [facility], Partial fill upon patient request if the prescription is for a schedule II opioid dr... Start Date: 10/03/22 Status: Ordered ketorolac 30 mg/mL injectable solution = 30 mg, Intramuscular, Once, Left deltoid [facility] [place] [id number] Lot [id number] Exp 01/2023, # 1 mL, 0 Refills, [...] Primary Care Member Role: PCP Address: Address: [address] [place] [id number] Care Team Related Persons Name: ULISSES MOON Address: home [address] [place] [address] Name: MILLA MOON Address: home [address] [place] [address]
--- OUTSIDE RECORDS SUMMARY | 2023-07-04 14:54 | XMS_ITS | Continuity of Care Document ---
Author Name Unknown Organization [facility] Address [address] [place] [address]- Care Team Providers Care Physician Intensivist Name Role Phone Anastasia YATES, Haley Rose Primary Care Physician [place] [facility] [place] 06/16/22 [facility] [address] [place] [address]- Encounter Diagnosis Urinary tract obstruction by kidney stone(Discharge Diagnosis) - 06/09/22 Attending Physician: Nupur YATES, Whit Marquez Allergies, [...] tablet, 3 Refills, Maintenance, 05/30/21 15:28:00 EDT, [email or web address], Partial fillupon patient request if the [...] tract obstruction by kidney stone Discharge Diagnosis 06/09/22 Vital Signs Most recent to oldest [Reference Range]: 1 Height 158 cm (06/09/22 11:58 AM) Weight 67.2 kg (06/09/22 11:58 AM) Oxygen Saturation [94-100 %] 98 % (06/09/22 11:58 AM) Pulse Rate [55-90 bpm] 87 bpm (06/09/22 11:58 AM) Body Mass Index [18.5-24.99 kg/m2] 26.92 kg/m2 *H* (06/09/22 11:58 AM) Blood Pressure [90-138/55-84 mm Hg] 134/ 99mm Hg (06/09/22 11:58 AM) Social History Social History Type Response Smoking Status Never (less than 100 in lifetime) entered on: 08/03/20 Sex Patient Care team information Personnel Name: Anastasia YATES, Haley Rose Address: Address: [address] [place] [address]
--- OUTSIDE RECORDS SUMMARY | 2023-07-04 14:54 | XMS_ITS | Continuity of Care Document ---
Author Name Unknown Organization [facility] Address [address] [place] [address]- Care Team Providers Care Sergeant At Arms Name Role Phone Sara Mckeon MD Primary Care Physician [place] [facility] [place]23 - 02/04/23 [facility] [address] [place] [address]- Allergies, Adverse Reactions, Alerts No Known Allergies [...] 12/18/22 15:15:00 EDT, Route to Pharmacy Electronically, [facility], Partial fill upon [...] 11:12:00 EDT, Route to Pharmacy Electronically, [facility], Partial fill upon patient request if the prescription is for... Start Date: 01/08/23 Stop Date: 02/08/23 Status: Ordered Diflucan 150 mg oral tablet 1 tablet = 150 mg, By Mouth, Once, # 1 tablet, 0 Refills, Soft Stop, 06/17/22 14:50:00 EDT, Tablet,[facility], Partial fill upon patient request if the prescription is for a schedule II opioiddrug., 158, cm, 06/09/22 11:58:00 EDT, Height Start Date: 06/17/22 Status: Ordered Effexor XR 37.5 mg oral capsule, extended release 37.5 mg, 1, capsule, By Mouth, Daily, # 30 capsule, Refills 1, Tot. Refills 1, Maintenance, 08/21/22 13:08:00 EST, Route to Pharmacy Electronically, [facility], Partial fill upon patient request if the prescription is for a schedule II opioid dr... Start Date: 08/21/22 Status: Ordered Flomax 0.4 mg oral capsule 0.4 mg, 1, capsule, By Mouth, Daily, # 30 capsule, Refills 1, Tot. Refills 1, Maintenance, 10/09/2310:44:00 EST, Route to Pharmacy Electronically, [facility], Partial fill upon patient requestif the prescription is for a schedule II opioid gabriela... Start Date: 10/09/22 Status: Ordered fluconazole 150 mg oral tablet 1 tablet = 150 mg, By Mouth, Once, epeat dose if still having symptoms in 72 hours, # 2 tablet, 0 Refills, Soft Stop, 10/03/22 16:21:00 EST, Tablet, [facility], Partial fill upon patient request if the prescription is for a schedule II opioid dr... Start Date: 10/03/22 Status: Ordered ketorolac 30 mg/mL injectable solution = 30 mg, Intramuscular, Once, Left deltoid [facility] 33501-898-84 Lot [id number] Exp 01/2023, # 1 mL, 0 Refills, [...] Team Personnel Name: Sara Mckeon MD Position: [facility] Physician - Primary Care Member Role: PCP Address: Address: [address] [place] [address]- Care Team Related Persons Name: MOON ULISSES Address: home [address] [place], [place] [id number] Name: MILLA MOON Address: home [address] [place] [id number]
--- NOTE | 2023-07-04 14:57 | PC.NURSE ---
medication administered per provider order. will reassess pain level shortly.
[2023-07-04 15:23] VITALS: BP 138/90; PULSE 67; RESP 18; TEMP 36.7; O2SAT 99
[2023-07-04] MEDS: iohexoL 350 MG/ML 100 ML INFUS..BTL IV (15:34)
[2023-07-04 16:45] LABS: CDiff Gene PCR NEGATIVE (Negative)
[2023-07-04] MEDS: Dicyclomine HCl 10 MG CAPSULE PO (17:10)
--- NOTE | 2023-07-04 17:11 | PC.NURSE ---
medication administered per provider order.
[2023-07-05 10:19] LABS: Adenovirus F 40/41 Not Detected (Not Detect.); Astrovirus Not Detected (Not Detect.); Campylobacter Not Detected (Not Detect.); Cryptosporidium Not Detected (Not Detect.); Cyclospora cayetanensis Not Detected (Not Detect.); E. coli EAEC Not Detected (Not Detect.); E. coli EPEC Not Detected (Not Detect.); E. coli ETEC Not Detected (Not Detect.); E. coli STEC Not Detected (Not Detect.); Entamoeba histolytica Not Detected (Not Detect.); Giardia lamblia Not Detected (Not Detect.); Norovirus GI/GII Not Detected (Not Detect.); Plesiomonas shigelloides Not Detected (Not Detect.); Rotavirus A Not Detected (Not Detect.); Salmonella Not Detected (Not Detect.); Sapovirus Not Detected (Not Detect.); Shigella sp./EIEC Not Detected (Not Detect.); Vibrio Not Detected (Not Detect.); Vibrio Cholerae Not Detected (Not Detect.); Yersinia enterocolitica Not Detected (Not Detect.)
== END 2023-07-04 17:18 | disposition home or self-care (01) ==
PROVIDERS: Nurse Practitioner Family; Emergency Provider Student in an Organized Health Care Education/Training Program; PCP Internal Medicine
DX: R10.9 Unspecified abdominal pain (principal); Z87.442 Personal history of urinary calculi
CPT/HCPCS: 36415; 74177; 80053; 81003; 81025; 83690; 85025; 87493; 87507; 96361; 96374; 96375; 99284; J2270; J2405; Q9967

== ENCOUNTER → 2023-07-08 16:06 | Outpatient (AMB) | payer OTHER, SELFPAY ==
[2023-07-08 16:10] VITALS: BP 134/88; PULSE 100; O2SAT 96; BMI 26.2
--- NOTE | 2023-07-08 16:10 | MHC.OFFVIS ---
Intake Vital Signs 07/08/23 16:10 Height 5 ft 2 in Weight 143 lb 4.807 oz BMI 26.2 BP 134/88 Blood Pressure Location Lt brachial Position Sitting Pulse 100 Pulse Source Pulse Oximeter Pulse Oximetry (%) 96 Oxygen Delivery Method Room Air Intake Visit Reasons: 5 week f/u (moved up) Intake Note: Pt presents to the office today for a 5 week follow up (moved up). Pt states she has constant pain in the right side of her abdomen that has been ongoing and she states she has diarrhea everday. Pt states she also has vomiting that happens occasionally. Pt states she hasn't made any improvements in her pain but she states she has noticed a little less diarrhea. Allergies No Known Allergies Allergy (Verified 07/08/23 16:14) HPI 5 week f/u (moved up) HPI Details LAST VISIT Diarrhea IBS (irritable bowel syndrome) Plan As mentioned above in HPI patient has diarrhea not related to food. Will have patient start on fiber therapy daily and help her eliminate her bowels by giving her Senokot. Patient may take 1 or 2 tablets at bedtime to help her empty her bowels completely. Had CT scan in May that showed mild colitis. Will run CRP to make sure that it is not IBD. Patient does have a family history of Crohn's. Next step will be sending patient for colonoscopy and upper endoscopy to rule out IBD. Low FODMAP diet discussed with patient. List of food recommended as well as list of food to avoid given to her. Patient will be sent for more lab work. Will rule out celiac, malabsorption, pancreatitis. Will check thyroid panel. Patient will return in 5-6 weeks, sooner on as needed basis. She was given the opportunity to ask questions and all questions answered. ? Thank you for allowing me to participate in her care Orders Orders Vitamin B12 and Folate Today R19.7 Lipase Today R10.9 TSH reflex Free T4 Today K59.00 C Reactive Protein Today K58.9 Vitamin D 25-OH (D2 and D3) Today E55.9 GI Panel Today R19.7 Transglutaminase Ab IgG Today R10.9 Transglutaminase IgA Today R10.9 Calprotectin, Fecal Today R15.9 Medications New methylcellulose (laxative) (Citrucel) 500 mg PO DAILY 30 tabs 2RF K59.00 sennosides (Natural Senna Laxative) 17.2 mg (2 x 8.6 mg) PO BEDTIME 60 tabs 3RF constipation K59.00 TODAY'S VISIT Patient is here today for requested visit. Patient has her sister on speaker phone who helps her with all her appointments. Three days ago patient was in the ER with abdominal pain, bloating and loose stools. Patient reports that her stools are still loose but not as bad as they were before. Patient is taking Citrucel every day. Calprotectin came back little bit elevated. Patient had CT scan done in the ER that did not show any acute processes except for small fat containing umbilical hernia. Patient reports occasional nausea sometimes vomiting. Patient denies melena, occasional blood in the stool after bowel movement. Patient denies any unintentional weight loss. Reports dyspepsia without dysphagia or odynophagia. [facility] Medical History Stress bladder incontinence, female Interstitial cystitis History of kidney stones Chronic right flank pain Surgical History H/O nephrolithotomy with removal of calculi Family History Maternal Aunt Cancer Social History Alcohol intake: never Patient Tobacco Use Status: Never used Tobacco Substance Use Type: Marijuana Review of Systems Const Denies weight gain and Denies weight loss ENT Reports no additional complaints, Denies dysphagia and Denies odynophagia Card Reports no additional complaints Resp Reports no additional complaints GI Reports abdominal pain, Denies belching, Denies melena, Reports bloating, Denies change in bowel habits, Denies dysphagia, Denies excessive flatus, Reports dyspepsia, Reports heartburn, Denies diarrhea, Reports loose stools, Reports nausea, Denies odynophagia and Reports vomiting Reports no additional complaints Musc Reports no additional complaints Neuro Reports no additional complaints Psych Reports no additional complaints Endo Reports no additional complaints Physical Exam Vital Signs: Last Vital Signs Pulse 100 07/08/23 16:10 BP 134/88 07/08/23 16:10 Pulse Ox 96 07/08/23 16:10 Oxygen Delivery Method Room Air 07/08/23 16:10 BMI result Body Mass Index 26.2 Const General: healthy appearing, no acute distress and well developed Nutritional Appearance: well nourished Orientation/consciousness: patient oriented x3 HEENT Head: Yes normal to inspection, Yes normocephalic and Yes atraumatic Face and sinus: Yes normal facial exam Mouth: Normal oral and palatal mucosa present Throat: Yes posterior oropharynx normal, Yes tonsils normal and Yes uvula midline Eyes General: appearance normal, both eyes and all related structures Neck Neck: Yes normal visual inspection, Yes full ROM and Yes trachea midline Thyroid: Thyroid normal Resp Effort & Inspection: normal respiratory effort, able to speak in complete sentences, no tracheal deviation and symmetric chest movement Auscultation: clear to auscultation bilaterally Cardio Jugular venous distension: no JVD Rate: regular rate Heart sounds: S1 normal heart sound present and S2 normal heart sound present GI Inspection: Yes normal to inspection and No distended Palpation (GI): Soft to palpation, not firm, nontender and No hepatosplenomegaly present Auscultation: normal bowel sounds General: Yes no CVA tenderness Back/Spine/Pelvis Back: no CVA tenderness Skin General skin exam: elasticity normal, turgor normal and dry skin Neuro General: patient oriented x3 Psych Appearance: grossly normal Mental Status: mental status grossly normal Results Reviewed Results Reviewed: ABDOMINAL CT 07/04/2023 (ED VISIT) FINDINGS: LUNG BASES: There is bibasilar dependent scar/subsegmental atelectasis. LIVER, GALLBLADDER, AND BILIARY TREE: The liver is normal in size, shape, and attenuation. No focal hepatic lesion or biliary ductal dilatation is present. The gallbladder is unremarkable with no evidence of radiopaque gallstones, gallbladder wall thickening, or obvious pericholecystic inflammatory changes. PANCREAS: Unremarkable. SPLEEN: Unremarkable. ADRENAL GLANDS: Unremarkable. KIDNEYS AND URETERS: The kidneys are normal in size, shape, and attenuation. No hydronephrosis, hydroureter, or calculi seen. No perinephric stranding. BLADDER: Unremarkable. GASTROINTESTINAL TRACT: The small and large bowel are unremarkable. The appendix is unremarkable. ABDOMINAL WALL: There is a small fat-containing umbilical hernia. LYMPH NODES: Normal. VASCULAR: Unremarkable. PELVIC VISCERA: The uterus and adnexa are unremarkable. OSSEOUS STRUCTURES: Unremarkable. CT/CT abdomen pelvis w IV con IMPRESSION: A small fat-containing umbilical hernia is seen. The examination is otherwise unremarkable. Laboratory Tests 06/22/23 06/22/23 06/24/23 12:50 12:50 06:45 Lipase 18 Vitamin B12 379 25-OH Vitamin D Total 22 L TSH 1.66 Stool Calprotectin 175 H Tiss Transglutamin IgG <1.0 Tiss Transglutamin IgA <1.0 Assessment & Plan Assessment & Plan (1) Diarrhea: Code(s): R19.7 - Diarrhea, unspecified Qualifiers: Diarrhea type: functional diarrhea Qualified Code(s): K59.1 - Functional diarrhea (2) IBS (irritable bowel syndrome): Code(s): K58.9 - Irritable bowel syndrome without diarrhea Qualifiers: Irritable bowel syndrome type: with both diarrhea and constipation Qualified Code(s): K58.2 - Mixed irritable bowel syndrome (3) Dyspepsia: Code(s): R10.13 - Epigastric pain (4) Nausea: Code(s): R11.0 - Nausea (5) Abdominal pain: Code(s): R10.9 - Unspecified abdominal pain Qualifiers: Abdominal location: generalized Qualified Code(s): R10.84 - Generalized abdominal pain (6) Family history of Crohn's disease: Code(s): Z83.79 - Family history of other diseases of the digestive system Plan Patient will be scheduled for upper endoscopy and colonoscopy. Elevated calprotectin. Will also check for pancreatic insufficiency. Patient can take vitamin D supplements as her levels were low. Patient was encouraged to take MiraLax daily to help her eliminate her bowels better if Senokot will not work for her.. She can take Citrucel to help her bulk her stools. GI panel was normal. I will see patient after the procedure, sooner on as needed basis. Both patient and her sister were agreeable to this plan and verbalize understanding of instructions. They were given the opportunity to ask questions and all questions answered. Thank you for allowing me to participate in her care Orders: Orders Pancreatic Elastase-1 07/14/23 R10.9 - Unspecified abdominal pain Medications: New cholecalciferol (vitamin D3) 50 mcg PO DAILY 90 caps 3RF R79.89 - Other specified abnormal findings of blood chemistry polyethylene glycol 3350 (Miralax) As directed by gastroenterology department at [facility] 238 grams PO ONCE 238 grams 0RF Z12.11 - Encounter for screening for malignant neoplasm of colon bisacodyl (Dulcolax (bisacodyl)) take 4 tabs at noon the day before your colonoscopy 20 mg (4 x 5 mg) PO ONCE 4 tabs 0RF constipation 1 day Z12.11 - Encounter for screening for malignant neoplasm of colon polyethylene glycol 3350 (Miralax) 17 grams PO DAILY 510 grams 2RF Coding Level of Care Code Est Pt Level 4 (38617) Diagnoses Functional diarrhea K59.1 Diarrhea type: functional diarrhea Irritable bowel syndrome with both constipation and diarrhea K58.2 Irritable bowel syndrome type: with both diarrhea and constipation Dyspepsia R10.13 Nausea R11.0 Generalized abdominal pain R10.84 Abdominal location: generalized Family history of Crohn's disease Z83.79 Time Spent (min) 40 Comment 25 minutes spent with patient and additional 15 minutes spent reviewing her records
== END ==
PROVIDERS: PCP Internal Medicine; Visit Provider Nurse Practitioner Family
DX: K59.1 Functional diarrhea (principal); K58.2 Mixed irritable bowel syndrome; R10.13 Epigastric pain; R11.0 Nausea; R10.84 Generalized abdominal pain; Z83.79 Family history of other diseases of the digestive system
CPT/HCPCS: 99214

== ENCOUNTER → 2023-07-08 16:06 | Outpatient (BNVA) | payer OTHER, SELFPAY | PROVIDERS: PCP Internal Medicine; Visit Provider Nurse Practitioner Family | DX: K59.1 Functional diarrhea (principal); K58.2 Mixed irritable bowel syndrome; R10.13 Epigastric pain; R11.0 Nausea; R10.84 Generalized abdominal pain; Z83.79 Family history of other diseases of the digestive system | CPT/HCPCS: 99212 ==

== ENCOUNTER 2023-07-10 10:00 | Outpatient (REF) | payer OTHER, SELFPAY ==
[2023-07-20 20:28] LABS: Pancreatic Elastase-1 269 mcg/g
== END 2023-07-10 10:01 | disposition home or self-care (01) ==
LOC: HO.LNP 10:00
PROVIDERS: Visit Provider Nurse Practitioner Family
DX: R10.9 Unspecified abdominal pain (principal)
CPT/HCPCS: 82656

== ENCOUNTER 2023-08-18 12:22 | Day surgery (SDC) | payer OTHER, SELFPAY ==
[2023-08-14 09:10] VITALS: BMI 26.2
--- NOTE | 2023-08-17 09:32 | P.CONAN_ITS ---
Documented by User: Geovanna Cummins NP 08/17/23 09:33 HPI - Anesthesia Eval Consult details Narrative: 42yo F for Upper Endoscopy and Colonoscopy [facility] Active Problems Active Problems: All Active Problems (Updated 07/05/23 @ 00:01 by [place]én [place]) History of kidney stones (Acute) Chronic right flank pain (Acute) Past Medical History Medical History Stress bladder incontinence, female Interstitial cystitis History of kidney stones Chronic right flank pain Family History Family History Maternal Aunt Cancer Surgical History Surgical History H/O nephrolithotomy with removal of calculi Social History Social History Alcohol intake: never Patient Tobacco Use Status: Never used Tobacco Substance Use Type: Marijuana Substance Use Frequency: Daily Are you DNR?: No Advance Directives: No Advance Directives Information Provided: Yes Nutrition Risks: No Nutritional Risk FDLMP: 08/15/23 Meds Allergies Allergy/AdvReac Type Severity Reaction Status Date / Time No Known Allergies Allergy Verified 08/18/23 13:24 Home Medications Medication Instructions Recorded Confirmed Last Taken Type sertraline 150 mg capsule 150 mg PO DAILY 05/06/23 06/11/23 Unknown History lisdexamfetamine 70 mg capsule 70 mg PO DAILY 06/22/23 Unknown History (Vyvanse) tolterodine 4 mg capsule,extended 4 mg PO DAILY 06/22/23 Unknown History release 24 hr (Detrol [place]) Exam Height,Weight and Vital Signs: Height 5 ft 2 in Weight 64.864 kg Pertinent Lab Results Pertinent Lab Results: Laboratory Tests 07/04/23 13:08 WBC 12.9 H Hgb 15.7 Hct 45.6 Plt Count 328 Sodium 138 Potassium 4.3 Chloride 107 Carbon Dioxide 23 BUN 13 Creatinine 0.77 Assessment and Plan Assessment Anesthesia Assessment: Chart Reviewed Documented by User: Sofy Hagan MD 08/18/23 13:31 PMFSH Past Medical History Medical History Stress bladder incontinence, female Interstitial cystitis History of kidney stones Chronic right flank pain Family History Family History Maternal Aunt Cancer Family history of problems with anesthesia: No Surgical History Surgical History H/O nephrolithotomy with removal of calculi History of Problems with Anesthesia: No Social History Social History Alcohol intake: never Patient Tobacco Use Status: Never used Tobacco Substance Use Type: Marijuana Substance Use Frequency: Daily Are you DNR?: No Advance Directives: No Advance Directives Information Provided: Yes Nutrition Risks: No Nutritional Risk FDLMP: 08/15/23 Meds Allergies Allergy/AdvReac Type Severity Reaction Status Date / Time No Known Allergies Allergy Verified 08/18/23 13:24 Home Medications Medication Instructions Recorded Confirmed Last Taken Type sertraline 150 mg capsule 150 mg PO DAILY 05/06/23 06/11/23 Unknown History lisdexamfetamine 70 mg capsule 70 mg PO DAILY 06/22/23 Unknown History (Vyvanse) tolterodine 4 mg capsule,extended 4 mg PO DAILY 06/22/23 Unknown History release 24 hr (Detrol [place]) Exam Airway Mallampati Class: II TM Dist: <=3cm Neck ROM: Limited Heart: rrr Lungs: cta Assessment and Plan Assessment Anesthesia Assessment: Anesthesia Plan Discussed Final Anesthetic Review Family History of Problems with Anesthesia: No History of Problems with Anesthesia: No NPO: Yes ASA Class: II Final Preanesthetic Review: No Changes in Pt Med Stat, Meds/Allgs Chart Reviewed, Consent Obtained/Reviewed and Anes Risks/Benef Reviewed Patient Risk: Low Procedure Risk: Low Anesthetic Plan Anesthetic Plan: MAC: Disposition: Standard PACU
[2023-08-18] VITALS (8 sets, daily range): BP systolic 106–120; BP diastolic 72–91; PULSE 51–76; RESP 16–18; TEMP 36.2–36.7; O2SAT 98–100; BMI 25.1
[2023-08-18] MEDS: Lactated Ringers 1,000 ML 100 ML IVCONT (13:08)
[2023-08-18 13:16] LABS: Urine Pregnancy NEGATIVE (NEGATIVE)
[2023-08-18 13:17] LABS: UPreg QC Valid YES
--- NOTE | 2023-08-18 13:37 | MHC.SHP ---
Pre-Procedural Eval Section A Date of Service: 08/18/23 Section B Chief Complaint: diarrhea Relevant Family History (Specify if Yes): No Relevant Social History: Other (specify) (cannabis) Present Medications: see Short Stay Collaborative assessment Medical History: Significant History (Stress bladder incontinence, female Interstitial cystitis History of kidney stones Chronic right flank pain) History of Previous Operations: Relevant previous surgery/procedure and date(s) (H/O nephrolithotomy with removal of calculi) Allergies: Allergies Allergy/AdvReac Type Severity Reaction Status Date / Time No Known Allergies Allergy Verified 08/18/23 13:24 Review of Systems Sugical H&P ROS: Negative: Constitution, Cardiovascular, Respiratory, Neurological, Psychiatric, Hem-Onc, Allergic/Immunologic, Gastrointestinal, Genitourinary, Musculoskeletal, Integumentary, Endocrine and Eyes/Ears/Nose/Throat Exam Surgical H&P Exam: Normal: HEENT, Normal: Heart, Normal: Lungs, Normal: Extremities, Normal: Abdomen, Normal: Skin and Normal: Neurological Plan Diagnosis/Plan: Unchanged I have reviewed the history and physical and performed a pertinent physical examination on my patient. No changes have occurred unless specified. Time Spent With Patient Time: Total time managing care of this patient today ____ minutes.
--- NOTE | 2023-08-18 13:44 | P.OP_ITS ---
Operative Note Operative Note Date of Service: 08/18/23 Narrative: Operative Information Procedure Description: EGD, Colonoscopy Indication: diarrhea Anesthesia: MAC FLEXIBLE TRANSORAL UPPER GASTROINTESTINAL ENDOSCOPY AND COLONOSCOPY PROCEDURE NOTE UPPER ENDOSCOPY Consent: Indications for the procedure and potential complications of bleeding, perforation, reaction to medications and missed diagnosis were discussed with the patient and informed consent was obtained. Instrument: Olympus GIF H 190 J mid size upper endoscope Monitoring: Vital signs and clinical assessment, continuous EKG monitoring, Pulse oximetry, Carbon Dioxide monitoring and blood pressure monitoring were done throughout the procedure. Procedure: The patient was placed in the left lateral decubitis position and pre-procedure medications were administered and a bite block was placed. The endoscope was inserted into the mouth and advanced under direct vision to the third part of duodenum. A careful inspection was made as the upper endoscope was withdrawn including a retroflexed examination of the proximal stomach; Findings and interventions are described below. Findings: Larynx:normal Esophagus: GE junction at 36 cm, diaphragm hiatus at 36 cm, mild erythema at GEJ and granular appearing mucosa, bx taken from GEJ, and distal,proximal esophagus Stomach: PAtchy erythema. Biopsies were obtained. Grade 2 flap valve on retroflexed examination of the cardia. Duodenum: Normal bulb and descending duodenum, bx taken Intervention: Biopsies as noted above COLONOSCOPY Instrument: Olympus variable stiffness pediatric scope 190L Colonoscopy Monitoring: Vital signs and clinical assessment, continuous EKG monitoring, Pulse oximetry, Carbon Dioxide monitoring and blood pressure monitoring were done throughout the procedure. Colon withdrawal time was 14 minutes. Procedure: The patient was placed in the left lateral decubitis position and pre-procedure medications were administered. After a digital rectal examination of the ano-rectum, the video colonoscope was inserted into the rectum and advanced through the colon to the cecum/TI. The colonoscope was slowly withdrawn in a retrograde panoramic fashion and the colon mucosa was carefully examined including a retroflexed view of the rectum. Findings and interventions are described below. Procedure Difficulty:moderate Findings: Terminal Ileum-normal Random colon bx taken and stool samples for c diff, Gi PCR and fecal lactoferrin Cecum:normal Ascending Colon: normal Transverse Colon -normal Descending Colon:normal Sigmoid Colon: patchy diverticulosis Rectum: Retroflexion with small internal hemorrhoids, grade I Anorectum - normal Colon preparation: [place] Bowel Preparation Scale Right colon; 2 Transverse colon: 3 Left colon; 3 (0 = Unprepared colon segment with mucosa not seen due to solid stool that cannot be cleared. 1 = Portion of mucosa of the colon segment seen, but other areas of the colon segment not well seen due to staining, residual stool and/or opaque liquid. 2 = Minor amount of residual staining, small fragments of stool and/or opaque liquid, but mucosa of colon segment seen well. 3 = Entire mucosa of colon segment seen well with no residual staining, small fragments of stool or opaque liquid) Impression and Post Procedure Diagnosis: Endoscopy Findings: gastritis esophagitis Colonoscopy Findings: diverticulosis hemorrhoids Plan: Await Pathology results Repeat Colonoscopy aged 45 for screening or earlier if clinically indicated High fiber diet leaflet avoid straining at stool, epsom salts and sitz bath, anusol supps or cream if H pylori pos then treat Above findings were reviewed with the patient and relevant handouts were provided if indicated.
[2023-08-18 15:06] LABS: CDiff Gene PCR NEGATIVE (Negative)
[2023-08-19 14:32] LABS: Adenovirus F 40/41 Not Detected (Not Detect.); Astrovirus Not Detected (Not Detect.); Campylobacter Not Detected (Not Detect.); Cryptosporidium Not Detected (Not Detect.); Cyclospora cayetanensis Not Detected (Not Detect.); E. coli EAEC Not Detected (Not Detect.); E. coli EPEC Not Detected (Not Detect.); E. coli ETEC Not Detected (Not Detect.); E. coli STEC Not Detected (Not Detect.); Entamoeba histolytica Not Detected (Not Detect.); Giardia lamblia Not Detected (Not Detect.); Norovirus GI/GII Not Detected (Not Detect.); Plesiomonas shigelloides Not Detected (Not Detect.); Rotavirus A Not Detected (Not Detect.); Salmonella Not Detected (Not Detect.); Sapovirus Not Detected (Not Detect.); Shigella sp./EIEC Not Detected (Not Detect.); Vibrio Not Detected (Not Detect.); Vibrio Cholerae Not Detected (Not Detect.); Yersinia enterocolitica Not Detected (Not Detect.)
[2023-08-22 00:53] LABS: Lactoferrin, Fecal, Quant. <6.25 mcg/mL (<7.25)
== END 2023-08-18 15:54 | disposition home or self-care (01) ==
PROVIDERS: Internal Medicine Gastroenterology; Nurse Practitioner; PCP Internal Medicine; Visit Provider Internal Medicine Gastroenterology
DX: K29.70 Gastritis, unspecified, without bleeding (principal); K20.90 Esophagitis, unspecified without bleeding; K51.90 Ulcerative colitis, unspecified, without complications; R10.13 Epigastric pain; R11.2 Nausea with vomiting, unspecified; Z12.11 Encounter for screening for malignant neoplasm of colon; K57.30 Diverticulosis of large intestine without perforation or abscess without bleeding; K64.0 First degree hemorrhoids; Z83.79 Family history of other diseases of the digestive system; F12.90 Cannabis use, unspecified, uncomplicated; Z87.442 Personal history of urinary calculi
CPT/HCPCS: 43239; 45380; 81025; 83631; 87493; 87507; 88305; 88342; J2250; J2704

== ENCOUNTER → 2023-08-18 12:22 | Outpatient (BNV) | payer OTHER, SELFPAY | PROVIDERS: PCP Internal Medicine; Visit Provider Internal Medicine Gastroenterology | DX: K52.9 Noninfective gastroenteritis and colitis, unspecified (principal); K29.70 Gastritis, unspecified, without bleeding; K20.90 Esophagitis, unspecified without bleeding; K57.30 Diverticulosis of large intestine without perforation or abscess without bleeding; K64.0 First degree hemorrhoids | CPT/HCPCS: 43239; 45380 ==

== ENCOUNTER 2023-09-15 13:22 | Outpatient (AMB) | payer OTHER, SELFPAY ==
--- NOTE | 2023-09-15 13:24 | MHC.OFFVIS ---
Intake Vital Signs 09/15/23 13:28 Height 5 ft 1 in Weight 140 lb BMI 26.4 BP 112/84 Blood Pressure Location Lt brachial Position Sitting Pulse 102 H Intake Visit Reasons: S/P [place]; Dr. Wang Intake Note: Billie presents in the office as a follow up colonoscopy. CC: She state that she is still in pain but she has been starting to feel a little better. [employer] Required: No Allergies No Known Allergies Allergy (Verified 09/15/23 13:26) HPI S/P [place]; Dr. Wang HPI Details LAST VISIT Diarrhea IBS (irritable bowel syndrome) Dyspepsia Nausea Abdominal pain Family history of Crohn's disease Plan Patient will be scheduled for upper endoscopy and colonoscopy. Elevated calprotectin. Will also check for pancreatic insufficiency. Patient can take vitamin D supplements as her levels were low. Patient was encouraged to take MiraLax daily to help her eliminate her bowels better if Senokot will not work for her.. She can take Citrucel to help her bulk her stools. GI panel was normal. I will see patient after the procedure, sooner on as needed basis. Both patient and her sister were agreeable to this plan and verbalize understanding of instructions. They were given the opportunity to ask questions and all questions answered. ? Thank you for allowing me to participate in her care Orders Orders Pancreatic Elastase-1 07/14/23 R10.9 Medications New cholecalciferol (vitamin D3) 50 mcg PO DAILY 90 caps 3RF R79.89 polyethylene glycol 3350 (Miralax) As directed by gastroenterology department at [facility] 238 grams PO ONCE 238 grams 0RF Z12.11 bisacodyl (Dulcolax (bisacodyl)) take 4 tabs at noon the day before your colonoscopy 20 mg (4 x 5 mg) PO ONCE 4 tabs 0RF constipation 1 day Z12.11 polyethylene glycol 3350 (Miralax) 17 grams PO DAILY 510 grams 2RF UPPER ENDOSCOPY AND COLONOSCOPY Findings: Larynx:normal Esophagus: GE junction at 36 cm, diaphragm hiatus at 36 cm, mild erythema at GEJ and granular appearing mucosa, bx taken from GEJ, and distal,proximal esophagus Stomach: PAtchy erythema. Biopsies were obtained. Grade 2 flap valve on retroflexed examination of the cardia. Duodenum: Normal bulb and descending duodenum, bx taken Intervention: Biopsies as noted above COLONOSCOPY Instrument: Olympus variable stiffness pediatric scope 190L Colonoscopy Monitoring: Vital signs and clinical assessment, continuous EKG monitoring, Pulse oximetry, Carbon Dioxide monitoring and blood pressure monitoring were done throughout the procedure. Colon withdrawal time was 14 minutes. Procedure: The patient was placed in the left lateral decubitis position and pre-procedure medications were administered. After a digital rectal examination of the ano-rectum, the video colonoscope was inserted into the rectum and advanced through the colon to the cecum/TI. The colonoscope was slowly withdrawn in a retrograde panoramic fashion and the colon mucosa was carefully examined including a retroflexed view of the rectum. Findings and interventions are described below. Procedure Difficulty:moderate Findings: Terminal Ileum-normal Random colon bx taken and stool samples for c diff, Gi PCR and fecal lactoferrin Cecum:normal Ascending Colon: normal Transverse Colon -normal Descending Colon:normal Sigmoid Colon: patchy diverticulosis Rectum: Retroflexion with small internal hemorrhoids, grade I Anorectum - normal Colon preparation: [place] Bowel Preparation Scale Right colon; 2 Transverse colon: 3 Left colon; 3 (0 = Unprepared colon segment with mucosa not seen due to solid stool that cannot be cleared. 1 = Portion of mucosa of the colon segment seen, but other areas of the colon segment not well seen due to staining, residual stool and/or opaque liquid. 2 = Minor amount of residual staining, small fragments of stool and/or opaque liquid, but mucosa of colon segment seen well. 3 = Entire mucosa of colon segment seen well with no residual staining, small fragments of stool or opaque liquid) Impression and Post Procedure Diagnosis: Endoscopy Findings: gastritis esophagitis Colonoscopy Findings: diverticulosis hemorrhoids Plan: Await Pathology results Repeat Colonoscopy aged 45 for screening or earlier if clinically indicated High fiber diet leaflet avoid straining at stool, epsom salts and sitz bath, anusol supps or cream if H pylori pos then treat PATHOLOGY RESULTS Diagnosis A. Colon, random, biopsy: Collagenous colitis. B. Duodenum, biopsy: Chronic inactive duodenitis. C. Stomach, biopsy: - Oxyntic mucosa with mild chronic inactive inflammation; no Helicobacter organisms seen. - Small intestinal mucosa within normal limits. D. GE junction, biopsy: - Cardiofundic-type mucosa with moderate chronic, focally active, inflammation; no intestinal metaplasia seen. - Squamous mucosa within normal limits. E. Esophagus, distal, biopsy: Squamous epithelium within normal limits; no inflammation seen. F. Esophagus, proximal, biopsy: Squamous epithelium within normal limits; no inflammation seen TODAY'S VISIT: Patient is here today for follow-up and to discuss upper endoscopy in colonoscopy results. Patient denies any ill effects from the prep, anesthesia or procedure itself. Patient reports that she has been feeling little better, however she continues to have abdominal bloating and occasional discomfort. Patient reports that his symptoms are mostly on the right lower to R lumbar region. Patient reports that she is moving her bowels, unsure if she feels like she empties them completely. Occasional postprandial abdominal bloating. Patient reports that she has less diarrhea now that she is taking Citrucel. Patient is also taking senna and feels like it is helping. Patient is taking sucralfate at bedtime and reports that her symptoms of acid reflux are for the most part suppressed. Patient is also taking Nexium in the morning. Patient is trying to avoid dietary triggers as well. Upper endoscopy and colonoscopy is results and biopsy findings discussed with patient. Patient's sister Rosalva is on a call during the visit. [facility] Medical History (Updated 09/15/23 @ 17:54 by Renetta Richards [facility]-) Collagenous colitis Stress bladder incontinence, female Interstitial cystitis History of kidney stones Chronic right flank pain Surgical History (Updated 09/15/23 @ 13:26 by FARAZ Puga) Hx of colonoscopy H/O nephrolithotomy with removal of calculi Family History Maternal Aunt Cancer Social History Alcohol intake: never Patient Tobacco Use Status: Never used Tobacco Substance Use Type: Marijuana Review of Systems Const Denies weight gain and Denies weight loss ENT Reports no additional complaints, Denies dysphagia and Denies odynophagia Card Reports no additional complaints Resp Reports no additional complaints GI Reports abdominal pain, Denies belching, Denies melena, Reports bloating, Denies change in bowel habits, Denies dysphagia, Denies excessive flatus, Denies dyspepsia, Denies heartburn, Denies diarrhea, Denies loose stools, Denies nausea, Denies odynophagia and Denies vomiting Reports no additional complaints Musc Reports no additional complaints Neuro Reports no additional complaints Psych Reports no additional complaints Endo Reports no additional complaints Physical Exam Vital Signs: Last Vital Signs Pulse 102 H 09/15/23 13:28 BP 112/84 09/15/23 13:28 BMI result Body Mass Index 26.4 Const General: healthy appearing, no acute distress and well developed Nutritional Appearance: well nourished Orientation/consciousness: patient oriented x3 Resp Effort & Inspection: normal respiratory effort, able to speak in complete sentences, no tracheal deviation and symmetric chest movement Auscultation: clear to auscultation bilaterally Cardio Rate: regular rate GI Inspection: Yes normal to inspection and No distended Palpation (GI): Soft to palpation, not firm, nontender and No hepatosplenomegaly present Auscultation: normal bowel sounds General: Yes no CVA tenderness Back/Spine/Pelvis Back: no CVA tenderness Skin General skin exam: elasticity normal, turgor normal and dry skin Neuro General: patient oriented x3 Psych Appearance: grossly normal Mental Status: mental status grossly normal Assessment & Plan Assessment & Plan (1) Abdominal pain: Code(s): R10.9 - Unspecified abdominal pain Qualifiers: Abdominal location: generalized Qualified Code(s): R10.84 - Generalized abdominal pain (2) Diarrhea: Code(s): R19.7 - Diarrhea, unspecified Qualifiers: Diarrhea type: functional diarrhea Qualified Code(s): K59.1 - Functional diarrhea (3) IBS (irritable bowel syndrome): Code(s): K58.9 - Irritable bowel syndrome without diarrhea Qualifiers: Irritable bowel syndrome type: with both diarrhea and constipation Qualified Code(s): K58.2 - Mixed irritable bowel syndrome (4) Dyspepsia: Code(s): R10.13 - Epigastric pain (5) Nausea: Code(s): R11.0 - Nausea (6) Family history of Crohn's disease: Code(s): Z83.79 - Family history of other diseases of the digestive system (7) Collagenous colitis: Code(s): K52.831 - Collagenous colitis Plan Patient reports right lumbar, lower and upper quadrant pain. Patient does not have any tenderness. Decreased bowel sounds. However will send patient for HIDA scan to rule out cholecystitis, cholelithiasis. Patient will continue taking sucralfate at bedtime and Nexium in the morning. Discussed with patient avoiding dietary triggers related snacking. Patient will continue taking Citrucel and Senokot to help her eliminate bowels better. Patient was encouraged to increase fluid intake and activity to remove better bowel motility. Patient will be seen in 3 months, sooner on as needed basis. Patient opted not to take budesonide to treat collagenous colitis. Will have patient stay away from NSAIDs. Fiber therapy. If patient continues to have diarrhea we can start her on budesonide taper. Patient and her sister are both agreeable to plan of care and verbalizes understanding of instructions. They were given the opportunity to ask questions and all questions answered. Thank you for allowing me to participate in her care Orders: Orders NM hepatobiliary w pharm Today R10.9 - Unspecified abdominal pain Medications: Refilled sucralfate 1 g PO BEDTIME 90 tabs 1RF R19.7 - Diarrhea, unspecified esomeprazole magnesium (Nexium) 40 mg PO DAILY 90 caps 2RF K21.9 - Gastro-esophageal reflux disease without esophagitis Coding Level of Care Code Est Pt Level 4 (81950) Diagnoses Generalized abdominal pain R10.84 Abdominal location: generalized Functional diarrhea K59.1 Diarrhea type: functional diarrhea Irritable bowel syndrome with both constipation and diarrhea K58.2 Irritable bowel syndrome type: with both diarrhea and constipation Dyspepsia R10.13 Nausea R11.0 Family history of Crohn's disease Z83.79 Collagenous colitis K52.831 Time Spent (min) 40 Comment 25 minutes spent with patient and additional 15 minutes spent reviewing her records
[2023-09-15 13:28] VITALS: BP 112/84; PULSE 102; BMI 26.4
== END 2023-09-15 14:01 | disposition home or self-care (01) ==
PROVIDERS: PCP Internal Medicine; Visit Provider Nurse Practitioner Family
DX: R10.84 Generalized abdominal pain (principal); K58.2 Mixed irritable bowel syndrome; R10.13 Epigastric pain; R11.0 Nausea; Z83.79 Family history of other diseases of the digestive system; K52.831 Collagenous colitis
CPT/HCPCS: 99214

== ENCOUNTER → 2023-09-15 13:22 | Outpatient (BNVA) | payer OTHER, SELFPAY | PROVIDERS: PCP Internal Medicine; Visit Provider Nurse Practitioner Family | DX: R10.84 Generalized abdominal pain (principal); K59.1 Functional diarrhea; K58.2 Mixed irritable bowel syndrome; K52.831 Collagenous colitis; R10.13 Epigastric pain; R11.0 Nausea; Z83.79 Family history of other diseases of the digestive system | CPT/HCPCS: 99212 ==

== ENCOUNTER → 2023-10-16 11:03 | Outpatient (REF) | payer OTHER, SELFPAY ==
--- NOTE | ~2023-10-16 | NM_ITS ---
EXAMINATION: BILIARY TRACT IMAGING STUDY WITH CCK CLINICAL INFORMATION: Unspecified abdominal pain.. COMPARISON: CT of the abdomen and pelvis done on 07/04/2023.. TECHNIQUE: Serial gamma scintillation camera images were obtained over the abdomen for a total observation period of 60 minutes following the intravenous administration of 5.0 mCi Tc-99m mebrofenin. FINDINGS: There is good concentration of activity in the liver by 5 minutes post injection. Biliary activity is visualized by 4 minutes. The gallbladder is well visualized by 10 minutes. Small bowel is well visualized by 12 minutes. At 60 minutes post radiopharmaceutical injection, a 30-minute infusion of 1.3 micrograms Sincalide was then begun and an additional 40 minutes of images were obtained. There is poor emptying of the gallbladder. By the end of the study there is good clearance of activity from the liver and visualization of diffuse small bowel activity. The calculated gallbladder ejection fraction is 98%, consider hyperkinetic (normal gallbladder ejection fraction is between 35% and 80%; Clinical Journal of Gastroenterology (2020) 14:1308?1317). NM/NM hepatobiliary w pharm IMPRESSION: Visualization of the gallbladder is evidence of a patent cystic duct and strong evidence against the diagnosis of acute cholecystitis. The common bile duct is patent. Gallbladder emptying and ejection fraction are abnormal. Liver function appears normal.
== END ==
LOC: HO.NUCMED 11:03
PROVIDERS: PCP Internal Medicine; Visit Provider Nurse Practitioner Family
DX: R10.9 Unspecified abdominal pain (principal)
CPT/HCPCS: 78227; A9537; J2805

== ENCOUNTER 2023-11-07 02:52 | Emergency (ER) | payer OTHER, SELFPAY ==
--- NOTE | ~2023-11-07 | US_ITS ---
EXAMINATION: US ABDOMEN LIMITED CLINICAL INFORMATION: Right upper quadrant pain, question gallbladder stone/polyp. COMPARISON: 04/29/2023 TECHNIQUE: Real-time imaging of the gallbladder and common bile duct. FINDINGS: GALLBLADDER: The gallbladder is physiologically distended without evidence of stones, sludge, wall thickening or pericholecystic fluid. Gallbladder polyp noted measuring up to 0.4 cm. Right upper quadrant tenderness was reported during the exam. COMMON BILE DUCT: Normal in caliber measuring 0.4 cm in diameter. US/US abdomen limited IMPRESSION: 1. Gallbladder polyp measuring up to 0.4 cm. 2. No gallstones identified. 3. Right upper quadrant tenderness was reported during the exam, nonspecific given the imaging findings. If there remains clinical concern for cholecystitis, this could be further assessed with nuclear medicine hepatobiliary scan.
[2023-11-07 02:54] VITALS: BP 139/102; PULSE 84; RESP 18; TEMP 36.3; O2SAT 97; BMI 25.6
[2023-11-07 03:17] LABS: MANUAL DIFF FLAG NO
[2023-11-07 03:18] LABS: Basophils Percent Auto 0.2 % (0-2); Eosinophils Absolute Auto 0.2 X10*3/uL (0.0-0.4); Eosinophils Percent Auto 1.7 % (0-4); Hematocrit 43.7 % (37.0-47.0); Hemoglobin 15.5 g/dl (12.0-16.0); Imm Gran Abs Auto 0.05 X10*3/uL (0.00-0.03); Imm Gran Pct Auto 0.5 % (0.0-0.4); Lymphocytes Absolute Auto 2.3 X10*3/uL (1.2-4.9); Lymphocytes Percent Auto 24.6 % (20-40); Mean Corpuscular HGB Conc 35.5 g/dl (31.0-35.0); Mean Corpuscular Hemoglobin 30.7 pg (27.0-33.0); Mean Corpuscular Volume 86.5 fL (80.0-98.0); Mean Platelet Volume 10.2 fL (9.4-12.3); Monocytes Absolute Auto 0.8 X10*3/uL (0.1-1.2); Monocytes Percent Auto 8.3 % (2-11); Neutrophils Absolute Auto 6.1 x10*3/uL (2.0-8.3); Neutrophils Percent Auto 64.7 % (45-73); Platelet Count 325 X10*3/uL (160-400); Red Blood Count 5.05 X10*6/uL (4.20-5.50); Red Cell Distribution Width 11.9 % (11.0-16.0); White Blood Count 9.5 X10*3/uL (4.8-10.8)
[2023-11-07 03:19] LABS: Appearance Urine Clear; Color Urine Dark Yellow; Glucose Urine UA Negative (Negative); Leukocyte Esterase Urine Trace (Negative); Nitrite Urine Negative (Negative); Specific Gravity - Urine >= 1.030 (1.005-1.025); UMIC TRIGGER UACC YES; Urine Blood Negative (Negative); Urine Ketones Trace mg/dL (Negative); Urine Protein Trace mg/dL (Neg-Trace)
[2023-11-07 03:21] LABS: Bacteria Urine None Seen (None Seen); Hyaline Casts Urine 0-2 /LPF (0-2); RBC Urine 0-2 /HPF (0-2); Squamous Epithelial Cell Urine 0-2 /HPF (0-2); WBC Urine 0-5 /HPF (0-5)
[2023-11-07 03:32] LABS: Alanine Aminotransferase 14 U/L (0-31); Albumin Level 4.4 g/dL (3.5-5.0); Alkaline Phosphatase 67 U/L (39-117); Anion Gap 12 (12-20); Aspartate Amino Transferase 16 U/L (5-31); Bilirubin Total 0.7 mg/dL (0.0-1.0); Blood Urea Nitrogen 17 mg/dL (9-16); Calcium 9.3 mg/dL (8.4-10.2); Carbon Dioxide 25 mmol/L (22-29); Chloride 106 mmol/L (96-108); Estimated Glomerular Filt Rate > 60; Glucose Random 92 mg/dL (60-115); Lipase 31 U/L (8-78); Potassium 4.2 mmol/L (3.3-5.1); Sodium 139 mmol/L (135-145); Total Protein 7.5 g/dL (6.5-8.0)
--- NOTE | 2023-11-07 04:10 | ED_ITS ---
HPI - General Adult General Chief complaint: General Medical Stated complaint: Flank pain/Vomiting Time Seen by Provider: 11/07/23 04:05 Source: patient Mode of arrival: ambulatory Limitations: no limitations History of Present Illness HPI narrative: Patient with interstitial cystitis and kidney stones status post lithotripsy comes here for right upper abdomen and right flank pain since yesterday with nausea and vomiting about 20 times no fever injury no urinary complaints patient had similar pain in the past had HIDA scan done on 10/31 which showed patent cystic duct no finding of cholecystitis had a small polyp Related Data Home Medications Medication Instructions Recorded Confirmed sertraline 150 mg capsule 150 mg PO DAILY 05/06/23 06/11/23 lisdexamfetamine 70 mg capsule 70 mg PO DAILY 06/22/23 (Vyvanse) tolterodine 4 mg capsule,extended 4 mg PO DAILY 06/22/23 release 24 hr (Detrol LA) Previous Rx's Medication Instructions Recorded dicyclomine 10 mg capsule 10 mg PO QID PRN abdominal pain 07/04/23 #20 caps ondansetron 4 mg disintegrating 4 mg PO Q6H PRN nausea and 07/04/23 tablet vomiting #20 tabs cholecalciferol (vitamin D3) 50 50 mcg PO DAILY #90 caps 07/08/23 mcg (2,000 unit) capsule sennosides 8.6 mg tablet (senna) 17.2 mg (2 x 8.6 mg) PO BEDTIME 07/27/23 for constipation 90 days #180 tabs methylcellulose (laxative) 500 mg 1,000 mg (2 x 500 mg) PO DAILY 90 08/26/23 tablet (Fiber Laxative days #180 tabs (methylcellulose)) esomeprazole magnesium 40 mg 40 mg PO DAILY #90 caps 09/15/23 capsule,delayed release (Nexium) sucralfate 1 gram tablet 1 g PO BEDTIME #90 tabs 09/15/23 ondansetron 4 mg disintegrating 4 mg PO Q6-8H PRN nausea and 11/07/23 tablet vomiting #10 tabs tramadol 50 mg tablet 50 mg PO Q6H PRN pain #20 tabs 11/07/23 Allergies Allergy/AdvReac Type Severity Reaction Status Date / Time No Known Allergies Allergy Verified 11/07/23 02:54 Review of Systems 2 Review of Systems: Yes all other systems are reviewed and are negative [facility] Past Medical History Medical History Collagenous colitis Stress bladder incontinence, female Interstitial cystitis History of kidney stones Chronic right flank pain Surgical History Hx of colonoscopy H/O nephrolithotomy with removal of calculi Family History Family History Maternal Aunt Cancer Social History Social History Alcohol intake: never Patient Tobacco Use Status: Never used Tobacco Smoked in Last 30 Days: No Use of substances other than those prescribed or required for medical reasons: Yes Substance Use Type: Marijuana Advance Directives: No Advance Directives Information Provided: Yes Patient : No Physical Exam ED Vital Signs: Vital Signs - 24 hr 11/07/23 02:54 11/07/23 04:51 11/07/23 06:00 Temperature 97.4 F Pulse Rate 84 67 Respiratory Rate 18 18 14 Blood Pressure 139/102 H 113/79 Pulse Oximetry 97 96 Oxygen Delivery Method Room Air Room Air BMI result Body Mass Index 25.6 Appearance: Alert. Oriented X3. No acute distress. Eyes: PERRLA, No Nystagmus ENT: Pharynx normal. Oral Mucosa moist Neck: Normal inspection. Neck supple. CVS: Normal heart rate and rhythm. Pulses normal. Respiratory: No respiratory distress. Equal air entry bilateral, no wheezing/rales/rhonchi Abdomen: Soft , tenderness in right upper quadrant Bowel sounds are present, no mass palpable, no CVA tenderness Skin: Skin warm and dry. Normal skin color. Normal skin turgor. Extremities: No lower extremity edema. No calf tenderness Neuro: Oriented X 3. Medications Administered Discontinued Medications Generic Name Dose Route Start Last Admin Trade Name Freq PRN Reason Stop Dose Admin Sodium Chloride 1,000 mls @ 999 mls/hr 11/07/23 04:41 11/07/23 06:38 Ns IV 11/07/23 05:41 Infused .Q1H1M ONE Infusion Morphine Sulfate 4 mg 11/07/23 04:41 11/07/23 04:51 Morphine Sulfate 4 Mg/Ml Cartridge IVPUSH 11/07/23 04:42 4 mg ONCE ONE Administration Protocol Ondansetron HCl 4 mg 11/07/23 04:41 11/07/23 04:51 Ondansetron Hcl 4 Mg/2 Ml Vial IVPUSH 11/07/23 04:42 4 mg ONCE ONE Administration Medical Decision Making Medical Decision Making [facility] Narrative: Patient has small polyp in the gallbladder without any obstruction or cholecystitis finding came for pain in the right upper quadrant which is going on for last 6 months vomited last night multiple times at this time patient had detailed workup done in the past and surgery was not indicated, patient feeling much better able to take p.o. fluids will discharge patient home advised to follow-up with surgeon Differential Diagnosis Differential Diagnoses: The differential diagnosis associated with the presentation includes Biliary colic/kidney stone Admission/Observation Consideration of admission/observation: Escalation of care including admission/observation considered Lab Data [facility] Lab Attestation statement: I reviewed the patient's lab results. 11/07/23 03:07 11/07/23 03:07 Labs: Lab Results 11/07/23 11/07/23 Range/Units 03:07 03:11 WBC 9.5 (4.8-10.8) X10*3/uL RBC 5.05 (4.20-5.50) X10*6/uL Hgb 15.5 (12.0-16.0) g/dl Hct 43.7 (37.0-47.0) % MCV 86.5 (80.0-98.0) fL MCH 30.7 (27.0-33.0) pg MCHC 35.5 H (31.0-35.0) g/dl RDW 11.9 (11.0-16.0) % Plt Count 325 (160-400) X10*3/uL MPV 10.2 (9.4-12.3) fL Immature Gran % (Auto) 0.5 H (0.0-0.4) % Neut % (Auto) 64.7 (45-73) % Lymph % (Auto) 24.6 (20-40) % [place] % (Auto) 8.3 (2-11) % Eos % (Auto) 1.7 (0-4) % Baso % (Auto) 0.2 (0-2) % Lymph # (Auto) 2.3 (1.2-4.9) X10*3/uL [place] # (Auto) 0.8 (0.1-1.2) X10*3/uL Eos # (Auto) 0.2 (0.0-0.4) X10*3/uL Baso # (Auto) 0.0 (0.0-0.2) X10*3/uL Abs Immat Gran (auto) 0.05 H (0.00-0.03) X10*3/uL Absolute Neuts (auto) 6.1 (2.0-8.3) x10*3/uL Absolute Nucleated RBC 0.000 (0.0-0.012) X10*3/uL Nucleated RBC % (auto) 0.0 (0.0-0.2) /100WBC Sodium 139 (135-145) mmol/L Potassium 4.2 (3.3-5.1) mmol/L Chloride 106 (96-108) mmol/L Carbon Dioxide 25 (22-29) mmol/L Anion Gap 12 (12-20) BUN 17 H (9-16) mg/dL Creatinine 0.82 (0.5-1.4) mg/dL Estim Creat Clear Calc 79.0 Estimated GFR > 60 Random Glucose 92 (60-115) mg/dL Calcium 9.3 D (8.4-10.2) mg/dL Total Bilirubin 0.7 (0.0-1.0) mg/dL AST 16 (5-31) U/L ALT 14 (0-31) U/L Alkaline Phosphatase 67 (39-117) U/L Total Protein 7.5 (6.5-8.0) g/dL Albumin 4.4 (3.5-5.0) g/dL Lipase 31 (8-78) U/L Urine Color Dark Yellow Urine Appearance Clear Urine pH 7.0 (5.0-9.0) Ur Specific [place] >= 1.030 H (1.005-1.025) Urine Protein Trace (Neg-Trace) mg/dL Urine Glucose (UA) Negative (Negative) mg/dL Urine Ketones Trace (Negative) mg/dL Urine Blood Negative (Negative) Urine Nitrite Negative (Negative) Ur Leukocyte Esterase Trace H (Negative) Urine RBC 0-2 (0-2) /HPF Urine WBC 0-5 (0-5) /HPF Ur Squamous Epith Cells 0-2 (0-2) /HPF Urine Bacteria None Seen (None Seen) Hyaline Casts 0-2 (0-2) /LPF Independent Interpretation I performed an independent interpretation of an: Ultrasound Radiology Impression Discussion of test interpretation with radiology: I have reviewed the radiologist's reading. Discharge Plan Discharge Clinical Impression: Biliary colic Patient Disposition: Home, Self-Care Instructions: Biliary Colic (ED) Additional Instructions: Drink plenty of fluid You have small polyp in gall bladder as in past but no stone were seen Pain medication as prescribed Medicine for nausea as prescribed Follow with surgeon if pain continues Prescriptions: New ondansetron 4 mg tablet,disintegrating 4 mg PO Q6-8H PRN (Reason: nausea and vomiting) Qty: 10 0RF tramadol 50 mg tablet 50 mg PO Q6H PRN (Reason: pain) Qty: 20 0RF No Action sennosides [senna] 8.6 mg tablet 17.2 mg PO BEDTIME 90 Days Qty: 180 3RF Fiber Laxative(methylcellulos) 500 mg tablet 1,000 mg PO DAILY 90 Days Qty: 180 2RF dicyclomine 10 mg capsule 10 mg PO QID PRN (Reason: abdominal pain) Qty: 20 0RF ondansetron 4 mg tablet,disintegrating 4 mg PO Q6H PRN (Reason: nausea and vomiting) Qty: 20 0RF lisdexamfetamine [Vyvanse] 70 mg capsule 70 mg PO DAILY tolterodine [Detrol LA] 4 mg capsule,extended release 24hr 4 mg PO DAILY esomeprazole magnesium [Nexium] 40 mg capsule,delayed release(DR/EC) 40 mg PO DAILY Qty: 90 2RF sucralfate 1 gram tablet 1 g PO BEDTIME Qty: 90 1RF sertraline 150 mg capsule 150 mg PO DAILY cholecalciferol (vitamin D3) 50 mcg (2,000 unit) capsule 50 mcg PO DAILY Qty: 90 3RF Referrals: Ford Palma MD [Physician] - 2 weeks
[2023-11-07 04:51] VITALS: RESP 18
[2023-11-07] MEDS: ondansetron HCL 4 MG/2 ML VIAL IVPUSH (04:51)
[2023-11-07] MEDS: Morphine Sulfate 4 MG/ML CARTRIDGE IVPUSH (04:51)
[2023-11-07] MEDS: 0.9 % Sodium Chloride 1,000 ML 999 ML IV (04:54)
[2023-11-07 06:00] VITALS: BP 113/79; PULSE 67; RESP 14; O2SAT 96
== END 2023-11-07 07:32 | disposition home or self-care (01) ==
PROVIDERS: Emergency Provider Internal Medicine; PCP Internal Medicine
DX: K80.50 Calculus of bile duct without cholangitis or cholecystitis without obstruction (principal); R10.11 Right upper quadrant pain; R11.2 Nausea with vomiting, unspecified; R10.9 Unspecified abdominal pain
CPT/HCPCS: 36415; 76705; 80053; 81001; 83690; 85025; 96361; 96374; 96375; 99284; J2270; J2405

== ENCOUNTER 2023-11-19 11:28 | Outpatient (AMB) | payer OTHER, SELFPAY ==
--- NOTE | 2023-11-19 11:32 | MHC.OFFVIS ---
Intake Vital Signs 11/19/23 11:39 Height 5 ft 2 in Weight 141 lb BMI 25.8 BP 129/77 Blood Pressure Location Rt brachial Position Sitting Pulse 91 Intake Visit Reasons: Biliary Colic (ED) Intake Note: This patient presents for a [facility] ED follow-up for biliary colic. Pt c/o; constant RUQ pain. 10/16/23: HIDA Scan 11/07/2023: Abd US Recycling Technician Required: No Accompanied by: Self / Same As Patient Allergies No Known Allergies Allergy (Verified 11/19/23 11:36) HPI Biliary Colic (ED) HPI Details She is well known to me for chronic right-sided abdominal pain. I would seen her last year twice because of this. She has had this chronic pain without any identifiable pathology. She does state that this happened after she had kidney stones in the past and had a ureteroscopy with stone removal in July,. Has had multiple imaging studies including CT scans and ultrasound as well as HIDA scan. She had an ultrasound when she was in the ER last 11/07/2023 and this showed a small gallbladder polyp 0.4 cm in size. There were no gallstones seen. She has had a HIDA scan as well which did not reveal any dyskinesia. She is continuing to have the same pain. She is frustrated and very anxious about this. She denies any nausea or vomiting. She denies any urinary complaints. [facility] Medical History Collagenous colitis Stress bladder incontinence, female Interstitial cystitis History of kidney stones Chronic right flank pain Surgical History Hx of colonoscopy H/O nephrolithotomy with removal of calculi Family History Maternal Aunt Cancer Social History Alcohol intake: never Patient Tobacco Use Status: Never used Tobacco Substance Use Type: Marijuana Review of Systems Const Denies chills and Denies fever(s) Card Denies chest pain, Denies dyspnea and Denies dyspnea on exertion Resp Denies cough, Denies dyspnea and Denies dyspnea on exertion GI Denies hematochezia and Denies change in bowel habits Denies hematuria Musc Denies back pain and Denies limited range of motion Neuro Denies focal weakness and Denies convulsions Psych Denies depression and Denies mood swings Physical Exam Const Other: Anicteric sclerae, complaints of right-sided pain Resp Effort & Inspection: normal respiratory effort Cardio Rate: regular rate GI Other: Soft, tender on the right side of the abdomen including the flank areas Assessment & Plan Assessment & Plan (1) Chronic right flank pain: Code(s): R10.9 - Unspecified abdominal pain; G89.29 - Other chronic pain Plan: She has chronic right-sided abdominal pain. She says she has pain right now along with tenderness. She says that she does not feel that she can go home with this kind of pain so I told her that she can go to the ER to have this re-evaluated with a CT scan. I explained to her that a small gallbladder polyp should not cause this type of pain for her. She says she would rather go to the emergency room instead of being set up for a CT scan as an outpatient so I brought her to the ER. Her abdomen was otherwise benign although tender on the right side. Coding Level of Care Code Est Pt Level 3 (13309) Diagnoses Chronic right flank pain R10.9; G89.29
[2023-11-19 11:39] VITALS: BP 129/77; PULSE 91; BMI 25.8
== END 2023-11-19 12:34 | disposition home or self-care (01) ==
PROVIDERS: PCP Internal Medicine; Visit Provider Surgery
DX: R10.9 Unspecified abdominal pain (principal); G89.29 Other chronic pain
CPT/HCPCS: 99213

== ENCOUNTER → 2023-11-19 11:28 | Outpatient (BNVA) | payer OTHER, SELFPAY | PROVIDERS: PCP Internal Medicine; Visit Provider Surgery ==

== ENCOUNTER 2023-11-19 11:50 | Emergency (ER) | payer OTHER, SELFPAY ==
--- NOTE | ~2023-11-19 | CT_ITS ---
EXAMINATION: CT ABDOMEN AND PELVIS WITH CONTRAST CLINICAL INFORMATION: Right upper quadrant pain COMPARISON: Same day abdominal ultrasound and CT abdomen pelvis July 04, 2023 TECHNIQUE: Multidetector volumetric images were obtained from the superior aspect of the liver through the pubic symphysis following administration 85 mL of Omnipaque 350 intravenous contrast. Sagittal and coronal reformatted images were obtained on the technologist's workstation. Today's examination is limited secondary to motion artifact. This CT examination was performed using dose optimization techniques as appropriate, variously including the following: *Automated exposure control *Adjustment of mA and/or kV according to patient size (this includes techniques or standardized protocols for targeted exams where dose is matched to indication/reason for exam; i.e. extremities or head) *Use of iterative reconstruction technique DLP: 618 mGy-cm FINDINGS: Visualized lung bases demonstrate mild dependent atelectasis. The liver is normal in size. The gallbladder is normal in appearance. The pancreas, spleen and adrenal glands are unremarkable. Symmetrically sized kidneys demonstrate symmetric enhancement status post IV contrast administration. Normal caliber loops of small and large bowel. Normal appendix. Normal caliber abdominal aorta. No retroperitoneal lymphadenopathy. Similar tiny fat-containing umbilical hernia. The bladder is normal in appearance. Unremarkable CT appearance of the uterus. Small amount of free pelvic fluid, often times physiologic in a female of this age. No acute osseous abnormality. CT/CT abdomen pelvis w IV con IMPRESSION: No CT evidence for acute abnormality within the abdomen or pelvis. Fleischner guidelines were followed.
--- NOTE | ~2023-11-19 | US_ITS ---
EXAMINATION: US ABDOMEN LIMITED CLINICAL INFORMATION: Right upper quadrant abdominal pain. COMPARISON: Abdominal ultrasound 11/07/2023, 04/29/2023. CT scan abdomen and pelvis 07/04/2023 TECHNIQUE: Real-time imaging of the right upper quadrant abdominal viscera. FINDINGS: PANCREAS: Normal head and body, the tail is obscured by bowel gas. LIVER: Normal. The liver is normal in size. The liver contour is normal. Parenchymal echogenicity is normal. No focal hepatic lesion. There is no intrahepatic biliary duct dilatation seen. GALLBLADDER: The gallbladder is physiologically distended without evidence of stones, sludge, wall thickening or pericholecystic fluid. There is question of innumerable ill-defined polyps, the most obvious measures 0.4 x 0.2 x 0.2 cm. No sonographic Hernandez's sign. COMMON BILE DUCT: Normal in caliber measuring 0.4 cm in diameter. RIGHT KIDNEY: Normal. No hydronephrosis. No renal calculi or focal parenchymal lesions. The kidney measures 10.5 cm in maximum dimension. FREE FLUID: None. US/US abdomen limited IMPRESSION: Question of innumerable ill-defined polyps within the gallbladder, the most obvious measures 0.4 cm in greatest dimension.
[2023-11-19 11:58] VITALS: BP 111/85; PULSE 82; RESP 17; TEMP 36.8; O2SAT 97; BMI 26.7
[2023-11-19 12:16] LABS: MANUAL DIFF FLAG NO
[2023-11-19 12:19] LABS: Basophils Percent Auto 0.4 % (0-2); Eosinophils Absolute Auto 0.1 X10*3/uL (0.0-0.4); Eosinophils Percent Auto 1.7 % (0-4); Hematocrit 46.8 % (37.0-47.0); Hemoglobin 15.9 g/dl (12.0-16.0); Imm Gran Abs Auto 0.05 X10*3/uL (0.00-0.03); Imm Gran Pct Auto 0.6 % (0.0-0.4); Lymphocytes Absolute Auto 2.6 X10*3/uL (1.2-4.9); Lymphocytes Percent Auto 31.1 % (20-40); Mean Corpuscular Hemoglobin 29.7 pg (27.0-33.0); Mean Corpuscular Volume 87.3 fL (80.0-98.0); Mean Platelet Volume 9.7 fL (9.4-12.3); Monocytes Absolute Auto 0.6 X10*3/uL (0.1-1.2); Monocytes Percent Auto 7.7 % (2-11); Neutrophils Absolute Auto 4.8 x10*3/uL (2.0-8.3); Neutrophils Percent Auto 58.5 % (45-73); Platelet Count 311 X10*3/uL (160-400); Red Blood Count 5.36 X10*6/uL (4.20-5.50); Red Cell Distribution Width 12.4 % (11.0-16.0); White Blood Count 8.2 X10*3/uL (4.8-10.8)
[2023-11-19 12:34] LABS: Alanine Aminotransferase 15 U/L (0-31); Albumin Level 4.5 g/dL (3.5-5.0); Alkaline Phosphatase 75 U/L (39-117); Anion Gap 12 (12-20); Aspartate Amino Transferase 16 U/L (5-31); Bilirubin Direct 0.2 mg/dL (0.0-0.5); Bilirubin Total 0.7 mg/dL (0.0-1.0); Blood Urea Nitrogen 14 mg/dL (9-16); Calcium 9.4 mg/dL (8.4-10.2); Carbon Dioxide 26 mmol/L (22-29); Chloride 106 mmol/L (96-108); Creatinine Clr Calc Pharmacy 75.6; Estimated Glomerular Filt Rate > 60; Glucose Random 102 mg/dL (60-115); Potassium 4.4 mmol/L (3.3-5.1); Sodium 140 mmol/L (135-145); Total Protein 7.8 g/dL (6.5-8.0)
--- NOTE | 2023-11-19 13:31 | ED.ABDPAIN ---
HPI - Abdominal Pain General Chief Complaint: Abdominal Pain Stated Complaint: Abd pain Time Seen by Provider: 11/19/23 12:52 History of Present Illness HPI narrative: Patient is a 42-year-old female has been having abdominal pain in the right upper quadrant for the last year. Denies any vaginal discharge. Does not think she is . Had an ultrasound and a HIDA scan done approximately last month and a half. It did not show any evidence of cholecystitis. There is a gallbladder polyp noted on the ultrasound. Continued to have abdominal pain. There has no fever no chills. Positive nausea. No vomiting. Patient denies any vaginal discharge. Normal appendix was noted on a previous CT scan back in November. Continued to have pain. No chest pain. No shortness of breath. No diaphoresis. No pain on urination. Menstruation has been normal timing rodriguez. Related Data Home Medications Medication Instructions Recorded Confirmed sertraline 150 mg capsule 150 mg PO DAILY 05/06/23 06/11/23 lisdexamfetamine 70 mg capsule 70 mg PO DAILY 06/22/23 (Vyvanse) tolterodine 4 mg capsule,extended 4 mg PO DAILY 06/22/23 release 24 hr (Detrol LA) Previous Rx's Medication Instructions Recorded dicyclomine 10 mg capsule 10 mg PO QID PRN abdominal pain 07/04/23 #20 caps ondansetron 4 mg disintegrating 4 mg PO Q6H PRN nausea and 07/04/23 tablet vomiting #20 tabs cholecalciferol (vitamin D3) 50 50 mcg PO DAILY #90 caps 07/08/23 mcg (2,000 unit) capsule sennosides 8.6 mg tablet (senna) 17.2 mg (2 x 8.6 mg) PO BEDTIME 07/27/23 for constipation 90 days #180 tabs methylcellulose (laxative) 500 mg 1,000 mg (2 x 500 mg) PO DAILY 90 08/26/23 tablet (Fiber Laxative days #180 tabs (methylcellulose)) esomeprazole magnesium 40 mg 40 mg PO DAILY #90 caps 09/15/23 capsule,delayed release (Nexium) sucralfate 1 gram tablet 1 g PO BEDTIME #90 tabs 09/15/23 ondansetron 4 mg disintegrating 4 mg PO Q6-8H PRN nausea and 03/02/24 tablet vomiting #10 tabs tramadol 50 mg tablet 50 mg PO Q6H PRN pain #20 tabs 11/07/23 Allergies Allergy/AdvReac Type Severity Reaction Status Date / Time No Known Allergies Allergy Verified 11/19/23 11:36 Review of Systems Review of Systems Positive abdominal pain on the right side Yes all other systems are reviewed and are negative [facility] Past Medical History Attestation statement: The following information was validated with the patient. Medical History Collagenous colitis Stress bladder incontinence, female Interstitial cystitis History of kidney stones Chronic right flank pain Surgical History Hx of colonoscopy H/O nephrolithotomy with removal of calculi Family History Family History Maternal Aunt Cancer Social History Social History Alcohol intake: never Patient Tobacco Use Status: Never used Tobacco Smoked in Last 30 Days: No Use of substances other than those prescribed or required for medical reasons: Yes Substance Use Type: Marijuana Advance Directives: No Physical Exam ED Vital Signs: Vital Signs - 24 hr 11/19/23 11:58 11/19/23 14:03 11/19/23 15:54 Temperature 98.3 F 97.6 F Pulse Rate 82 62 75 Respiratory Rate 17 18 16 Blood Pressure 111/85 129/87 111/78 Pulse Oximetry 97 95 97 Oxygen Delivery Method Room Air Room Air Room Air BMI result Body Mass Index 26.7 Appearance: Alert. Oriented X3. No acute distress. Eyes: Pupils equal, round and reactive to light. ENT: Pharynx normal. Neck: Normal inspection. Neck supple. No lymph nodes noted. No crepitus CVS: Normal heart rate and rhythm. Pulses normal. Normal S1 and S2 Respiratory: No respiratory distress. Breath sounds normal. No Wheezing. No rales Abdomen: Soft and nontender. No rigidity. No distention. good BS x4 Skin: Skin warm and dry. Normal skin color. Normal skin turgor. Extremities: No lower extremity edema. Neurovascular intact to all extremities. No Lacerations. No Rash Neuro: Oriented X 3. No motor deficit. No sensory deficit. Moving all extermities. No slurred speech Medical Decision Making Medical Decision Making [facility] Narrative: Patient is 42 years old presents today with having right-sided abdominal pain for the last year. Patient had had a ultrasound and a HIDA scan done in the past were negative for any acute evidence of cholecystitis. Patient was seen by surgery this morning. Patient had a repeat CT scan of the abdomen done which was grossly negative. Patient's urine showed no signs of infection. test was negative. No evidence for -related issue. LFTs are normal. Lipase is normal. No evidence for pancreatitis. The pain is over the entire side. It has been ongoing for the last year. Unlikely ovarian in origin. Will discharge patient home. Case consulted with surgery Dr. Wells was patient's primary surgeon. [place] comfortable with plan of following up with GI on an outpatient basis. Differential Diagnosis Differential Diagnoses: The differential diagnosis associated with the presentation includes Kidney stone, biliary disease, pancreatitis, gastritis, appendicitis, abdominal pathology, pneumonia, shingles Admission/Observation Consideration of admission/observation: Escalation of care including admission/observation considered Consult Healthcare Provider Management of the patient was discussed with: Livestock Nutritionist (Surgery) Lab Data [facility] Lab Attestation statement: I reviewed the patient's lab results. 11/19/23 12:10 11/19/23 12:10 Labs: Lab Results 11/19/23 11/19/23 Range/Units 12:10 14:04 WBC 8.2 (4.8-10.8) X10*3/uL RBC 5.36 (4.20-5.50) X10*6/uL Hgb 15.9 (12.0-16.0) g/dl Hct 46.8 (37.0-47.0) % MCV 87.3 (80.0-98.0) fL MCH 29.7 (27.0-33.0) pg MCHC 34.0 (31.0-35.0) g/dl RDW 12.4 (11.0-16.0) % Plt Count 311 (160-400) X10*3/uL MPV 9.7 (9.4-12.3) fL Immature Gran % (Auto) 0.6 H (0.0-0.4) % Neut % (Auto) 58.5 (45-73) % Lymph % (Auto) 31.1 (20-40) % Mcpherson % (Auto) 7.7 (2-11) % Eos % (Auto) 1.7 (0-4) % Baso % (Auto) 0.4 (0-2) % Lymph # (Auto) 2.6 (1.2-4.9) X10*3/uL Mcpherson # (Auto) 0.6 (0.1-1.2) X10*3/uL Eos # (Auto) 0.1 (0.0-0.4) X10*3/uL Baso # (Auto) 0.0 (0.0-0.2) X10*3/uL Abs Immat Gran (auto) 0.05 H (0.00-0.03) X10*3/uL Absolute Neuts (auto) 4.8 (2.0-8.3) x10*3/uL Absolute Nucleated RBC 0.000 (0.0-0.012) X10*3/uL Nucleated RBC % (auto) 0.0 (0.0-0.2) /100WBC Sodium 140 (135-145) mmol/L Potassium 4.4 (3.3-5.1) mmol/L Chloride 106 (96-108) mmol/L Carbon Dioxide 26 (22-29) mmol/L Anion Gap 12 (12-20) BUN 14 (9-16) mg/dL Creatinine 0.84 (0.5-1.4) mg/dL Estim Creat Clear Calc 75.6 Estimated GFR > 60 Random Glucose 102 (60-115) mg/dL Calcium 9.4 (8.4-10.2) mg/dL Total Bilirubin 0.7 (0.0-1.0) mg/dL Direct Bilirubin 0.2 (0.0-0.5) mg/dL AST 16 (5-31) U/L ALT 15 (0-31) U/L Alkaline Phosphatase 75 (39-117) U/L Total Protein 7.8 (6.5-8.0) g/dL Albumin 4.5 (3.5-5.0) g/dL Urine Color Yellow Urine Appearance Clear Urine pH 6.5 (5.0-9.0) Ur Specific [place] 1.025 (1.005-1.025) Urine Protein Negative (Neg-Trace) mg/dL Urine Glucose (UA) Negative (Negative) mg/dL Urine Ketones Trace (Negative) mg/dL Urine Blood Negative (Negative) Urine Nitrite Negative (Negative) Ur Leukocyte Esterase Negative (Negative) Urine Test NEGATIVE (NEGATIVE) Independent Interpretation I performed an independent interpretation of an: Ultrasound (Ultrasound showed no evidence of cholecystitis) and CT Scan (CT abdomen grossly negative) Radiology Impression Discussion of test interpretation with radiology: I have reviewed the radiologist's reading. External Record Review External record reviewed: Inpatient record and Outpatient record HIDA scan reviewed Medications Administered Discontinued Medications Generic Name Dose Route Start Last Admin Trade Name Freq PRN Reason Stop Dose Admin Iohexol 100 ml 11/19/23 14:59 11/19/23 14:59 Iohexol 350 Mg/Ml 100 Ml Infus..Btl IV 11/19/23 15:00 85 ml ONCE ONE Administration Discharge Plan Discharge Clinical Impression: Abdominal pain Patient Disposition: Home, Self-Care Instructions: Abdominal Pain (ED) Prescriptions: No Action sennosides [senna] 8.6 mg tablet 17.2 mg PO BEDTIME 90 Days Qty: 180 3RF Fiber Laxative(methylcellulos) 500 mg tablet 1,000 mg PO DAILY 90 Days Qty: 180 2RF ondansetron 4 mg tablet,disintegrating 4 mg PO Q6-8H PRN (Reason: nausea and vomiting) Qty: 10 0RF tramadol 50 mg tablet 50 mg PO Q6H PRN (Reason: pain) Qty: 20 0RF dicyclomine 10 mg capsule 10 mg PO QID PRN (Reason: abdominal pain) Qty: 20 0RF ondansetron 4 mg tablet,disintegrating 4 mg PO Q6H PRN (Reason: nausea and vomiting) Qty: 20 0RF lisdexamfetamine [Vyvanse] 70 mg capsule 70 mg PO DAILY tolterodine [Detrol LA] 4 mg capsule,extended release 24hr 4 mg PO DAILY esomeprazole magnesium [Nexium] 40 mg capsule,delayed release(DR/EC) 40 mg PO DAILY Qty: 90 2RF sucralfate 1 gram tablet 1 g PO BEDTIME Qty: 90 1RF sertraline 150 mg capsule 150 mg PO DAILY cholecalciferol (vitamin D3) 50 mcg (2,000 unit) capsule 50 mcg PO DAILY Qty: 90 3RF Referrals: Jewels Chou MD [Primary Care Provider] - Renetta Richards, STRINGING MACHINE OPERATOR- [Nurse Practitioner] - 11/23/23
[2023-11-19 14:03] VITALS: BP 129/87; PULSE 62; RESP 18; O2SAT 95
[2023-11-19 14:11] LABS: Appearance Urine Clear; Color Urine Yellow; Glucose Urine UA Negative (Negative); Leukocyte Esterase Urine Negative (Negative); Nitrite Urine Negative (Negative); PH 6.5 (5.0-9.0); Specific Gravity - Urine 1.025 (1.005-1.025); Urine Blood Negative (Negative); Urine Ketones Trace mg/dL (Negative); Urine Protein Negative (Neg-Trace)
[2023-11-19 14:12] LABS: UPreg QC Valid YES; Urine Pregnancy NEGATIVE (NEGATIVE)
[2023-11-19] MEDS: iohexoL 350 MG/ML 100 ML INFUS..BTL IV (14:59)
[2023-11-19 15:54] VITALS: BP 111/78; PULSE 75; RESP 16; TEMP 36.4; O2SAT 97
[2023-11-19 17:25] VITALS: BP 111/78; PULSE 75; RESP 16; TEMP 36.4; O2SAT 97
== END 2023-11-19 17:00 | disposition home or self-care (01) ==
PROVIDERS: Emergency Provider Emergency Medicine Emergency Medical Services; PCP Internal Medicine
DX: R10.11 Right upper quadrant pain (principal); Z79.899 Other long term (current) drug therapy
CPT/HCPCS: 36415; 74177; 76705; 80048; 80076; 81003; 81025; 85025; 99212; 99284; Q9967

== ENCOUNTER 2023-11-30 12:00 | Outpatient (AMB) | payer OTHER, SELFPAY ==
[2023-11-30 12:02] VITALS: BP 121/96; PULSE 90; BMI 27.5
--- NOTE | 2023-11-30 12:02 | MHC.OFFVIS ---
Intake Vital Signs 11/30/23 12:02 Height 5 ft 1 in Weight 145 lb 8.081 oz BMI 27.5 BP 121/96 H Blood Pressure Location Lt brachial Position Sitting Pulse 90 Intake Visit Reasons: req sooner appointment Intake Note: Billie presents in the office today in follow up of abdominal pain. CC: Patient went to the ER on 11/18 and 11/06 with c/o RUQ abdominal pain and right flank pain. She continues having constant RUQ abdominal pain and Rt flank pain. Denies other GI symptoms today. Circuit Designer Required: No Accompanied by: Self / Same As Patient Allergies No Known Allergies Allergy (Verified 11/30/23 12:11) HPI req sooner appointment HPI Details LAST VISIT: Abdominal pain Diarrhea IBS (irritable bowel syndrome) Dyspepsia Nausea Family history of Crohn's disease Collagenous colitis Plan Patient reports right lumbar, lower and upper quadrant pain. Patient does not have any tenderness. Decreased bowel sounds. However will send patient for HIDA scan to rule out cholecystitis, cholelithiasis. Patient will continue taking sucralfate at bedtime and Nexium in the morning. Discussed with patient avoiding dietary triggers related snacking. Patient will continue taking Citrucel and Senokot to help her eliminate bowels better. Patient was encouraged to increase fluid intake and activity to remove better bowel motility. Patient will be seen in 3 months, sooner on as needed basis. Patient opted not to take budesonide to treat collagenous colitis. Will have patient stay away from NSAIDs. Fiber therapy. If patient continues to have diarrhea we can start her on budesonide taper. Patient and her sister are both agreeable to plan of care and verbalizes understanding of instructions. They were given the opportunity to ask questions and all questions answered. ? Thank you for allowing me to participate in her care Orders Orders NM hepatobiliary w pharm Today R10.9 Medications Refilled sucralfate 1 g PO BEDTIME 90 tabs 1RF R19.7 esomeprazole magnesium (Nexium) 40 mg PO DAILY 90 caps 2RF K21.9 TODAY'S VISIT Patient is here today for follow-up and to discuss HIDA scan results. Patient states that her symptoms of right upper quadrant pain still continue. Seen in the ER for this. Patient reports that the pain is postprandial and its in right upper quadrant. Patient reports that it hurts even when she touches her side. Patient was seen in the ER 3 times after seen by me. Patient went to see general surgeon on the 18 of November and was brought to ER for acute right upper quadrant discomfort. HIDA scan showed hyperkinetic gallbladder at EF of 98% when normal should be 35-80%. Patient reports that her symptoms are almost bright after she eats. She is able to move her bowels better now that she is taking Citrucel. Patient no longer has diarrhea. Reports to have good results with Nexium and sucralfate. Patient denies any fever or chills. [facility] Medical History Collagenous colitis Stress bladder incontinence, female Interstitial cystitis History of kidney stones Chronic right flank pain Surgical History Hx of colonoscopy H/O nephrolithotomy with removal of calculi Family History Maternal Aunt Cancer Social History Alcohol intake: never Patient Tobacco Use Status: Never used Tobacco Substance Use Type: Marijuana Review of Systems Const Denies weight gain and Denies weight loss ENT Reports no additional complaints, Denies dysphagia and Denies odynophagia Card Reports no additional complaints Resp Reports no additional complaints GI Reports abdominal pain (RUQ), Denies belching, Denies melena, Denies bloating, Denies change in bowel habits, Denies dysphagia, Denies excessive flatus, Denies dyspepsia, Denies heartburn, Denies diarrhea, Denies loose stools, Denies nausea, Denies odynophagia and Denies vomiting Musc Reports no additional complaints Neuro Reports no additional complaints Psych Reports no additional complaints Endo Reports no additional complaints Physical Exam Vital Signs: Last Vital Signs Pulse 90 11/30/23 12:02 BP 121/96 H 03/25/24 12:02 BMI result Body Mass Index 27.5 Const General: healthy appearing, no acute distress and well developed Nutritional Appearance: well nourished Orientation/consciousness: patient oriented x3 Resp Effort & Inspection: normal respiratory effort, able to speak in complete sentences, no tracheal deviation and symmetric chest movement Auscultation: clear to auscultation bilaterally Cardio Rate: regular rate GI Inspection: Yes normal to inspection and No distended Palpation (GI): Soft to palpation, not firm, nontender and No hepatosplenomegaly present Auscultation: normal bowel sounds General: Yes no CVA tenderness Back/Spine/Pelvis Back: no CVA tenderness Skin General skin exam: elasticity normal, turgor normal and dry skin Neuro General: patient oriented x3 Psych Appearance: grossly normal Mental Status: mental status grossly normal Results Reviewed Results Reviewed: HIDA SCAN FINDINGS: There is good concentration of activity in the liver by 5 minutes post injection. Biliary activity is visualized by 4 minutes. The gallbladder is well visualized by 10 minutes. Small bowel is well visualized by 12 minutes. At 60 minutes post radiopharmaceutical injection, a 30-minute infusion of 1.3 micrograms Sincalide was then begun and an additional 40 minutes of images were obtained. There is poor emptying of the gallbladder. By the end of the study there is good clearance of activity from the liver and visualization of diffuse small bowel activity. The calculated gallbladder ejection fraction is 98%, consider hyperkinetic (normal gallbladder ejection fraction is between 35% and 80%; Clinical Journal of Gastroenterology (2020) 14:1308?1317). NM/NM hepatobiliary w pharm IMPRESSION: Visualization of the gallbladder is evidence of a patent cystic duct and strong evidence against the diagnosis of acute cholecystitis. The common bile duct is patent. Gallbladder emptying and ejection fraction are abnormal. Liver function appears normal. Assessment & Plan Assessment & Plan (1) Diarrhea: Code(s): R19.7 - Diarrhea, unspecified Qualifiers: Diarrhea type: functional diarrhea Qualified Code(s): K59.1 - Functional diarrhea (2) IBS (irritable bowel syndrome): Code(s): K58.9 - Irritable bowel syndrome without diarrhea Qualifiers: Irritable bowel syndrome type: with diarrhea Qualified Code(s): K58.0 - Irritable bowel syndrome with diarrhea (3) Dyspepsia: Code(s): R10.13 - Epigastric pain (4) Nausea: Code(s): R11.0 - Nausea (5) Abdominal pain: Code(s): R10.9 - Unspecified abdominal pain Qualifiers: Abdominal location: right upper quadrant Qualified Code(s): R10.11 - Right upper quadrant pain (6) Family history of Crohn's disease: Code(s): Z83.79 - Family history of other diseases of the digestive system (7) Abnormal biliary HIDA scan: Code(s): R94.8 - Abnormal results of function studies of other organs and systems Plan Hyperkinetic gallbladder possibility that patient has diarrhea might be related to that. That could be causing what her pain is at this time. This happens right after she eats. Patient will follow-up with her surgeon to discuss more her options. Patient might benefit from cholecystectomy. She is already dealing with diarrhea postprandially. However we are controlling this right now with Citrucel and sucralfate. Continue Nexium in the morning. Patient states that she did not take dicyclomine as it was not helpful. I will see patient in 2 months, sooner on as needed basis. Patient is agreeable to this plan and verbalizes understanding of instructions. She was given the opportunity to ask questions and all questions answered. Thank you for allowing me to participate in her care Medications: Discontinued dicyclomine Discontinued Reason: Doctor's Order 10 mg PO QID PRN 20 caps 0RF abdominal pain dicyclomine Discontinued Reason: Doctor's Order 10 mg PO TID 60 caps 0RF sennosides Discontinued Reason: Patient no longer taking 17.2 mg (2 x 8.6 mg) PO BEDTIME 90 days 180 tabs 3RF for constipation K59.00 - Constipation, unspecified Coding Level of Care Code Est Pt Level 4 (76264) Diagnoses Functional diarrhea K59.1 Diarrhea type: functional diarrhea Irritable bowel syndrome with diarrhea K58.0 Irritable bowel syndrome type: with diarrhea Dyspepsia R10.13 Nausea R11.0 Right upper quadrant abdominal pain R10.11 Abdominal location: right upper quadrant Family history of Crohn's disease Z83.79 Abnormal biliary HIDA scan R94.8 Time Spent (min) 40 Comment 25 minutes spent with patient and additional 15 minutes spent reviewing her records
== END 2023-11-30 12:28 | disposition home or self-care (01) ==
PROVIDERS: PCP Internal Medicine; Visit Provider Nurse Practitioner Family
DX: K59.1 Functional diarrhea (principal); K58.0 Irritable bowel syndrome with diarrhea; R10.13 Epigastric pain; R11.0 Nausea; R10.11 Right upper quadrant pain; Z83.79 Family history of other diseases of the digestive system; R94.8 Abnormal results of function studies of other organs and systems
CPT/HCPCS: 99214

== ENCOUNTER → 2023-11-30 12:00 | Outpatient (BNVA) | payer OTHER, SELFPAY | PROVIDERS: PCP Internal Medicine; Visit Provider Nurse Practitioner Family | DX: K58.0 Irritable bowel syndrome with diarrhea (principal); K59.1 Functional diarrhea; R10.13 Epigastric pain; R10.11 Right upper quadrant pain; R11.0 Nausea; R94.8 Abnormal results of function studies of other organs and systems; Z83.79 Family history of other diseases of the digestive system | CPT/HCPCS: 99212 ==

== ENCOUNTER 2023-12-09 10:09 | Outpatient (AMB) | payer OTHER, SELFPAY ==
--- NOTE | 2023-12-09 10:09 | A.OFFVIS_ITS ---
Intake Vital Signs 12/09/23 10:15 Height 5 ft 1 in Weight 147 lb BMI 27.8 Intake Visit Reasons: Gallbladder problems,Discuss surgery Intake Note: This patient presents for an assessment for symptomatic gallbladder, discuss surgery. Pt c/o; RUQ pain , reports no nausea or vomiting. 11/19/2023- abd US 11/19/23- abd/pelvis Ct-Scan Mental Health Program Director Required: No Accompanied by: Self / Same As Patient Allergies No Known Allergies Allergy (Verified 12/09/23 10:15) HPI Gallbladder problems,Discuss surgery HPI Details 42-year-old female here for recurrent ri ght upper quadrant pain. She has had a long history of right upper quadrant pain and tenderness. Multiple imaging studies do not show an obvious pathology However, her HIDA scan was read as a hyperkinetic gallbladder with a high ejection fraction (98%). She had been seen by the mirror inspector and at this time, in view of the absence of any other etiology, she was recommended to undergo a laparoscopic cholecystectomy because of her symptoms. She continues to have multiple visits the ER because of her persistent episodes of pain. [facility] Medical History (Updated 12/09/23 @ 10:21 by Nader Wells MD) Dyskinesia of gallbladder Collagenous colitis Stress bladder incontinence, female Interstitial cystitis History of kidney stones Chronic right flank pain Surgical History Hx of colonoscopy H/O nephrolithotomy with removal of calculi Family History Maternal Aunt Cancer Social History Alcohol intake: never Patient Tobacco Use Status: Never used Tobacco Substance Use Type: Marijuana Review of Systems Const Denies chills and Denies fever(s) Card Denies chest pain, Denies dyspnea and Denies dyspnea on exertion Resp Denies cough, Denies dyspnea and Denies dyspnea on exertion GI Denies hematochezia and Denies change in bowel habits Denies hematuria Musc Denies back pain and Denies limited range of motion Neuro Denies focal weakness and Denies convulsions Psych Denies depression and Denies mood swings Physical Exam Vital Signs: BMI result Body Mass Index 27.8 Const General: comfortable and no acute distress Orientation/consciousness: patient oriented x3 Neck Neck: Yes no lymphadenopathy Resp Auscultation: clear to auscultation bilaterally Cardio Rhythm: regular rhythm GI Other: Mild tenderness right upper quadrant Palpation (GI): Soft to palpation, nontender and no guarding Neuro General: patient oriented x3 Assessment & Plan Assessment & Plan (1) Dyskinesia of gallbladder: Code(s): K82.8 - Other specified diseases of gallbladder Plan: She continues to have frequent right upper quadrant pain and tenderness and she says this happens practically all the time. She is desperate and frustrated with her symptoms. Imaging studies do not show any other etiology. Her HIDA scan however suggest hyperkinesia of the gallbladder with a very high ejection fraction. She had been evaluated by the mirror inspector and because of this HIDA scan finding, she was recommended to undergo laparoscopic cholecystectomy. I had a long discussion with her about the technique of laparoscopic cholecystectomy and possible open cholecystectomy. I reviewed with her the risks including but not limited to bleeding, infections, injury to bowel, liver and the bile ducts, bile leak, persistent symptoms, as well as the benefits and alternatives. She does understand that there is no guarantee that her symptoms will resolve with cholecystectomy. She is however desperate and wants to proceed Her sister Michelle was involved with the discussion. Coding Level of Care Code Est Pt Level 4 (11024) Diagnoses Dyskinesia of gallbladder K82.8
[2023-12-09 10:15] VITALS: BMI 27.8
== END 2023-12-09 10:20 | disposition home or self-care (01) ==
PROVIDERS: PCP Internal Medicine; Referring Provider Nurse Practitioner Family; Visit Provider Surgery
DX: K82.8 Other specified diseases of gallbladder (principal)
CPT/HCPCS: 99214

== ENCOUNTER → 2023-12-09 10:09 | Outpatient (BNVA) | payer OTHER, SELFPAY | PROVIDERS: PCP Internal Medicine; Referring Provider Nurse Practitioner Family; Visit Provider Surgery | DX: R10.11 Right upper quadrant pain (principal); K82.8 Other specified diseases of gallbladder | CPT/HCPCS: 99212 ==

== ENCOUNTER 2023-12-23 05:34 | Day surgery (SDC) | payer OTHER, SELFPAY ==
[2023-12-17 14:20] VITALS: BMI 27.8
[2023-12-23] VITALS (10 sets, daily range): BP systolic 109–148; BP diastolic 81–101; PULSE 73–89; RESP 16–18; TEMP 36.1–36.3; O2SAT 93–98; BMI 27.5
[2023-12-23 06:47] LABS: UPreg QC Valid YES; Urine Pregnancy NEGATIVE (NEGATIVE)
[2023-12-23] MEDS: Lactated Ringers 1,000 ML 100 ML IVCONT (06:47)
--- NOTE | 2023-12-23 07:20 | HO.ANESPROP2 ---
[facility] Active Problems Active Problems: All Active Problems Dyskinesia of gallbladder (Acute) Collagenous colitis (Acute) History of kidney stones (Acute) Chronic right flank pain (Acute) Past Medical History Medical History GERD (gastroesophageal reflux disease) Dyskinesia of gallbladder Collagenous colitis Stress bladder incontinence, female Interstitial cystitis History of kidney stones Chronic right flank pain Family History Family History Maternal Aunt Cancer Family history of problems with anesthesia: No Surgical History Surgical History History of esophagogastroduodenoscopy (EGD) Hx of colonoscopy H/O nephrolithotomy with removal of calculi History of Problems with Anesthesia: No Social History Social History Alcohol intake: never Patient Tobacco Use Status: Never used Tobacco Use of substances other than those prescribed or required for medical reasons: Yes Substance Use Type: Marijuana Substance Use Frequency: Daily Are you DNR?: No Advance Directives: No Advance Directives Information Provided: Yes Patient : No (UCG pending) Meds Allergies Allergy/AdvReac Type Severity Reaction Status Date / Time No Known Allergies Allergy Verified 12/09/23 10:15 Active Medications: Current Medications Lactated Ringer's (Lr) 1,000 mls @ 100 mls/hr IVCONT .Q10H MARIE Last Admin: 12/23/23 06:47 Dose: 100 mls/hr Home Medications ?Medication ?Instructions ?Recorded ?Confirmed ?Last Taken ?Type sertraline 150 mg capsule 150 mg PO DAILY 05/06/23 12/17/23 Unknown History lisdexamfetamine 70 mg capsule 70 mg PO DAILY 06/22/23 12/17/23 Unknown History (Vyvanse) tolterodine 4 mg capsule,extended 4 mg PO DAILY 06/22/23 12/17/23 Unknown History release 24 hr (Detrol [place]) Exam Height,Weight and Vital Signs: Height 5 ft 1 in Weight 65.998 kg Last Vital Signs Temp 97.3 F 12/23/23 06:32 Pulse 75 12/23/23 06:32 Resp 16 12/23/23 06:32 BP 109/81 12/23/23 06:32 Pulse Ox 98 12/23/23 06:32 O2 Del Method Room Air 12/23/23 06:32 Pertinent Lab Results Pertinent Lab Results: Laboratory Tests 12/23/23 06:10 Urine Test NEGATIVE Airway Mallampati Class: II TM Dist: >3cm Neck ROM: Full Heart: rrr Lungs: clear Assessment and Plan Final Anesthetic Review Family History of Problems with Anesthesia: No History of Problems with Anesthesia: No NPO: Yes ASA Class: I Final Preanesthetic Review: No Changes in Pt Med Stat, Meds/Allgs Chart Reviewed, Consent Obtained/Reviewed and Anes Risks/Benef Reviewed Patient Risk: Intermediate Procedure Risk: Low Anesthetic Plan Anesthetic Plan: GA Disposition: Standard PACU
--- NOTE | 2023-12-23 07:41 | MHC.SHP ---
Pre-Procedural Eval Section A - 24 Hr Update-Section A only Date of Service: 12/23/23 The patient is an INPATIENT: No Changes since office visit: No Cold of Flu in the past 2 weeks, No New Medical Problems, No Changes in Medication and No Patient answered all questions The patient has been examined within 24 hours of the surgical procedure. The History & Physical has been completed within 30 days and I have reviewed it.: Yes Section B - Complete if H&P > 30 days Chief Complaint: Other specified diseases of gallbladder Allergies: Allergies Allergy/AdvReac Type Severity Reaction Status Date / Time No Known Allergies Allergy Verified 12/09/23 10:15 Plan I have reviewed the history and physical and performed a pertinent physical examination on my patient. No changes have occurred unless specified. Time Spent With Patient Time: Total time managing care of this patient today ____ minutes.
--- NOTE | 2023-12-23 08:40 | P.OP_ITS ---
Operative Note Operative Note Date of Service: 12/23/23 Narrative: Preop diagnosis: Hyperkinesia of the gallbladder Postop diagnosis: The same Procedure: Laparoscopic cholecystectomy Surgeon: Nader Wells MD radiology assistant: SEDA Dodge The patient is a 43 year female with recurrent right upper quadrant pain and tenderness. She did not have any gallstones or any other identifiable pathology except for very high ejection fraction. She was referred to in for [facility] for laparoscopic cholecystectomy in view of this finding with frequent symptoms. She understood the technique of the planned procedure as well as the risks, benefits, and alternatives She was brought to the operating room. She was placed supine under general anesthesia via endotracheal tube. The abdomen was prepped and draped in the usual sterile fashion. A surgical time-out was done. The patient received Cefotan 2 g IV preoperatively I made a short incision on the supraumbilical margin using a blade 15. This was carried down through the full-thickness of the skin and subcutaneous fat down to the fascia. The fascia was incised. The peritoneum was entered. Through this incision and Wang port was introduced. Pneumoperitoneum was introduced to a pressure of 15 mm Hg. From here on the rest of the procedure was done under vision with the laparoscope. With laparoscopic visualization I proceeded to insert a 5/12 mm port in the epigastric area below the subcostal margin. Two 5 meal ports introduced a small incision episode subcostal margin along the anterior axillary line and the midclavicular line. Graspers were placed through these working ports. The patient was placed in a head up and [id number] position. A grasper was placed on the fundus of the gallbladder to retract this cephalad. Another grasper was placed on the pouch of the gallbladder to retract this laterally. At this point the gallbladder was being retracted in a cephalad and lateral fashion to put the area of the cystic duct on stretch. I carefully dissected the cystic duct with the [place] dissector until I was able to define this clearly. I was able to confirm its confluence with the neck of the gallbladder. By doing so was able to also achieve a critical view of the he patocystic triangle. There were no other structures in the area except for what appeared to be the cystic artery I therefore applied clips on the cystic duct with 2 clips being applied distally. The cystic duct was transected between clips with Endo scissors. I applied clips on the cystic artery and 2 clips were applied distally. The cystic artery was also transected between clips with Endo scissors I proceeded to retract the gallbladder away from the liver bed. I used the electrocautery spatula to carefully incised the peritoneum. I then defined the plane of dissection between the gallbladder wall and the liver bed using a combination of blunt dissection with the tip of the spatula and electrocautery. I carefully the gallbladder from the liver bed along this plane of dissection until the entire gallbladder was completely from the liver bed. I retrieved the gallbladder using an endobag through the umbilical incision. I reinserted all ports and re-insufflated. I examined all 4 quadrants. There was no evidence of any other pathology. There was no evidence of any bile leak, bowel injury or any bleeding I irrigated the subhepatic space. I suctioned the irrigant fluid. I re- examined the subhepatic space and this remained hemostatic I therefore desufflated the port sites. I removed all ports under vision with the laparoscope. The umbilical port was removed last. The fascia of the umbilical incision was closed with a [id number] Polysorb 0 stitch Skin closure was achieved on all incisions using Polysorb 4-0 subcuticular running sutures. Steri-Strips and dressings were applied. All incisions were infiltrated with Marcaine 0.5% for postop analgesia. The procedure was then completed The patient tolerated procedure well. There were no immediate complications. Initial and final counts of sponges and instruments were correct. Estimated blood loss was about 20 cc The patient was extubated without difficulty and transferred to the recovery room with stable vital signs.
== END 2023-12-23 10:53 | disposition home or self-care (01) ==
PROVIDERS: PCP Internal Medicine; Visit Provider Surgery
PROC: 0FT44ZZ Resection of Gallbladder, Percutaneous Endoscopic Approach (ICD-10-PCS; CPT 47562; principal; 2023-12-23 07:30)
DX: K81.1 Chronic cholecystitis (principal); K82.8 Other specified diseases of gallbladder; K52.831 Collagenous colitis; N30.10 Interstitial cystitis (chronic) without hematuria; N39.3 Stress incontinence (female) (male); Z79.899 Other long term (current) drug therapy; Z87.442 Personal history of urinary calculi
CPT/HCPCS: 47562; 81025; 88304; J0330; J1100; J2250; J2405; J2704; J2795; J3010

== ENCOUNTER → 2023-12-23 05:34 | Outpatient (BNV) | payer OTHER, SELFPAY | PROVIDERS: PCP Internal Medicine; Visit Provider Surgery | DX: K82.8 Other specified diseases of gallbladder (principal) | CPT/HCPCS: 47562 ==

== ENCOUNTER 2024-01-04 13:22 | Outpatient (AMB) | payer OTHER, SELFPAY ==
--- NOTE | 2024-01-04 13:22 | A.OFFVIS_ITS ---
Intake Visit Reasons: S/P lap kristen Intake Note: This patient presents for a post-op assessment status post laparoscopic cholecystectomy. Pt c/o; reports had lost of appetite several days post-op but now is able to eat, reports soreness. 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 She tolerated procedure well. She currently denies complaints. She has good oral intake. [facility] Medical History GERD (gastroesophageal reflux disease) Dyskinesia of gallbladder Collagenous colitis Stress bladder incontinence, female Interstitial cystitis History of kidney stones Chronic right flank pain Surgical History History of laparoscopic cholecystectomy (~12/23/23) History of esophagogastroduodenoscopy (EGD) Hx of colonoscopy H/O nephrolithotomy with removal of calculi Family History Maternal Aunt Cancer Social History Alcohol intake: never Comment: counts correct Patient Tobacco Use Status: Never used Tobacco Substance Use Type: Marijuana Review of Systems Const Denies chills and Denies fever(s) Card Denies chest pain, Denies dyspnea and Denies dyspnea on exertion Resp Denies cough, Denies dyspnea and Denies dyspnea on exertion GI Denies hematochezia and Denies change in bowel habits Denies hematuria Musc Denies back pain and Denies limited range of motion Neuro Denies focal weakness and Denies convulsions Psych Denies depression and Denies mood swings Physical Exam Const General: comfortable and no acute distress Eyes Other: Anicteric Resp Effort & Inspection: normal respiratory effort GI Other: All incisions are well healed Palpation (GI): Soft to palpation, not firm and nontender Assessment & Plan Assessment & Plan (1) Dyskinesia of gallbladder: Code(s): K82.8 - Other specified diseases of gallbladder Category: Medical Plan: Status post laparoscopic cholecystectomy. She is doing very well. All incisions are well healed. Her path report shows chronic cholecystitis and cholesterolosis. She says she has had no symptoms of right upper quadrant pain for now. She feels she is doing quite well. She was advised to avoid lifting of anything more than 20 lb for about 2 more weeks She can follow up with me on a p.r.n. basis. She will also follow-up with the GI service. Coding Level of Care Code Global (52571) Diagnoses Dyskinesia of gallbladder K82.8
== END 2024-01-04 13:39 | disposition home or self-care (01) ==
PROVIDERS: PCP Internal Medicine; Visit Provider Surgery
DX: K82.8 Other specified diseases of gallbladder (principal)
CPT/HCPCS: 99024

== ENCOUNTER → 2024-01-04 13:22 | Outpatient (BNVA) | payer OTHER, SELFPAY | PROVIDERS: PCP Internal Medicine; Visit Provider Surgery | DX: Z09 Encounter for follow-up examination after completed treatment for conditions other than malignant neoplasm (principal); Z90.49 Acquired absence of other specified parts of digestive tract | CPT/HCPCS: 99212 ==

== ENCOUNTER 2024-02-02 11:00 | Outpatient (AMB) | payer OTHER, SELFPAY ==
--- NOTE | 2024-02-02 11:01 | MHC.OFFVIS ---
Vital Signs 02/02/24 11:04 Height 5 ft 1.5 in Weight 138 lb 14.259 oz BMI 25.8 BP 141/94 H Blood Pressure Location Lt brachial Position Sitting Pulse 87 Intake Visit Reasons: 2 months Intake Note: Billie presents in the office as a 2 month follow up. CC: Has been having spells where she gets light headiness and vomiting. She is not sure if it is food related now that she is no longer having a gall bladder. She also has a stitch that is poking out of the belly button. She also still has some pains in the right side but not as much as it was prior. She states that the pains come and go and do no linger so that is a plus. 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 That could be causing what her pain is at this time. This happens right after she eats. Patient will follow-up with her surgeon to discuss more her options. Patient might benefit from cholecystectomy. She is already dealing with diarrhea postprandially. However we are controlling this right now with Citrucel and sucralfate. Continue Nexium in the morning. Patient states that she did not take dicyclomine as it was not helpful. I will see patient in 2 months, sooner on as needed basis. Patient is agreeable to this plan and verbalizes understanding of instructions. She was given the opportunity to ask questions and all questions answered. ? Thank you for allowing me to participate in her care Medications Discontinued dicyclomine Discontinued Reason: Doctor's Order 10 mg PO QID PRN 20 caps 0RF abdominal pain dicyclomine Discontinued Reason: Doctor's Order 10 mg PO TID 60 caps 0RF sennosides Discontinued Reason: Patient no longer taking 17.2 mg (2 x 8.6 mg) PO BEDTIME 90 days 180 tabs 3RF for constipation K59.00 TODAY'S VISIT: Patient is here today for follow-up. Patient has sisters on the speaker phone during the visit. Patient had cholecystectomy on December 22 and she reports that she is doing much better. Patient is confused and states that sometimes when she eats certain food she will occasionally gets nauseous and then she will vomit. During episodes like that patient states that she gets dizzy. Patient reports that she is moving her bowels better now. No longer has loose stools postprandially. Patient states that in general she is definitely feeling much better since the surgery. Denies any postprandial abdominal pain in her right upper quadrant. Would like to have 1 of the stitches that was left out today. [facility] Medical History GERD (gastroesophageal reflux disease) Dyskinesia of gallbladder Collagenous colitis Stress bladder incontinence, female Interstitial cystitis History of kidney stones Chronic right flank pain Surgical History History of laparoscopic cholecystectomy (~12/23/23) History of esophagogastroduodenoscopy (EGD) Hx of colonoscopy H/O nephrolithotomy with removal of calculi Family History Maternal Aunt Cancer Social History Alcohol intake: never Comment: counts correct Patient Tobacco Use Status: Never used Tobacco Substance Use Type: Marijuana Review of Systems Const Denies weight gain and Denies weight loss ENT Reports no additional complaints, Denies dysphagia and Denies odynophagia Card Reports no additional complaints Resp Reports no additional complaints GI Reports abdominal pain (occasional), Denies belching, Denies melena, Denies bloating, Denies change in bowel habits, Reports constipation (Occasional), Denies dysphagia, Denies excessive flatus, Denies dyspepsia, Denies heartburn, Denies diarrhea, Denies loose stools, Reports nausea (Occasional), Denies odynophagia and Denies vomiting Reports no additional complaints Musc Reports no additional complaints Neuro Reports no additional complaints Psych Reports no additional complaints Endo Reports no additional complaints Physical Exam Vital Signs: Last Vital Signs Pulse 87 02/02/24 11:04 BP 141/94 H 02/02/24 11:04 BMI result Body Mass Index 25.8 Const General: healthy appearing, no acute distress and well developed Nutritional Appearance: well nourished Orientation/consciousness: patient oriented x3 Resp Effort & Inspection: normal respiratory effort, able to speak in complete sentences, no tracheal deviation and symmetric chest movement Auscultation: clear to auscultation bilaterally Cardio Rate: regular rate GI Inspection: Yes normal to inspection and No distended Palpation (GI): Soft to palpation, not firm, nontender and No hepatosplenomegaly present Auscultation: normal bowel sounds General: Yes no CVA tenderness Back/Spine/Pelvis Back: no CVA tenderness Skin General skin exam: elasticity normal, turgor normal and dry skin Neuro General: patient oriented x3 Psych Appearance: grossly normal Mental Status: mental status grossly normal Assessment & Plan Assessment & Plan (1) Dyskinesia of gallbladder: Code(s): K82.8 - Other specified diseases of gallbladder Category: Medical (2) Diarrhea: Code(s): R19.7 - Diarrhea, unspecified Qualifiers: Diarrhea type: functional diarrhea Qualified Code(s): K59.1 - Functional diarrhea (3) IBS (irritable bowel syndrome): Code(s): K58.9 - Irritable bowel syndrome without diarrhea Qualifiers: Irritable bowel syndrome type: without diarrhea Qualified Code(s): K58.9 - Irritable bowel syndrome without diarrhea (4) Dyspepsia: Code(s): R10.13 - Epigastric pain (5) Nausea: Code(s): R11.0 - Nausea (6) Abdominal pain: Code(s): R10.9 - Unspecified abdominal pain Qualifiers: Abdominal location: upper abdomen, unspecified Qualified Code(s): R10.10 - Upper abdominal pain, unspecified (7) Family history of Crohn's disease: Code(s): Z83.79 - Family history of other diseases of the digestive system (8) Abnormal biliary HIDA scan: Code(s): R94.8 - Abnormal results of function studies of other organs and systems Plan Patient will continue to take sucralfate at bedtime and Nexium in the morning. Avoid dietary triggers. Discussed with patient that her symptoms of nausea could be related to what she eats. Patient will monitor and watch what she eats. Avoid fatty and greasy food. Continue high-fiber diet. Increase fluid intake and activity to promote better bowel motility. Patient will follow-up in our office in 3 months, sooner on as needed basis. She is agreeable to this plan and verbalizes understanding of instructions. She was given the opportunity to ask questions and all questions answered. Thank you for allowing me to participate in her care Medications: Refilled sucralfate 1 g PO BEDTIME 90 tabs 1RF R19.7 - Diarrhea, unspecified esomeprazole magnesium (Nexium) 40 mg PO DAILY 90 caps 2RF K21.9 - Gastro-esophageal reflux disease without esophagitis Coding Level of Care Code Est Pt Level 4 (64373) Diagnoses Dyskinesia of gallbladder K82.8 Functional diarrhea K59.1 Diarrhea type: functional diarrhea Irritable bowel syndrome without diarrhea K58.9 Irritable bowel syndrome type: without diarrhea Dyspepsia R10.13 Nausea R11.0 Pain of upper abdomen R10.10 Abdominal location: upper abdomen, unspecified Family history of Crohn's disease Z83.79 Abnormal biliary HIDA scan R94.8 Time Spent (min) 35 Comment 30 minutes spent with patient and additional 15 minutes spent reviewing her records
[2024-02-02 11:04] VITALS: BP 141/94; PULSE 87; BMI 25.8
== END 2024-02-02 11:35 | disposition home or self-care (01) ==
PROVIDERS: PCP Internal Medicine; Visit Provider Nurse Practitioner Family
DX: K82.8 Other specified diseases of gallbladder (principal); K59.1 Functional diarrhea; K58.9 Irritable bowel syndrome, unspecified; R10.13 Epigastric pain; R11.0 Nausea; R10.10 Upper abdominal pain, unspecified; Z83.79 Family history of other diseases of the digestive system; R94.8 Abnormal results of function studies of other organs and systems
CPT/HCPCS: 99214

== ENCOUNTER → 2024-02-02 11:00 | Outpatient (BNVA) | payer OTHER, SELFPAY | PROVIDERS: PCP Internal Medicine; Visit Provider Nurse Practitioner Family | DX: K82.8 Other specified diseases of gallbladder (principal); K59.1 Functional diarrhea; K58.9 Irritable bowel syndrome, unspecified; R10.13 Epigastric pain; R10.10 Upper abdominal pain, unspecified; R94.8 Abnormal results of function studies of other organs and systems; Z83.79 Family history of other diseases of the digestive system; Z90.49 Acquired absence of other specified parts of digestive tract | CPT/HCPCS: 99212 ==

== ENCOUNTER 2024-04-27 10:22 | Outpatient (AMB) | payer OTHER, SELFPAY ==
--- NOTE | 2024-04-27 10:36 | MHC.OFFVIS ---
Vital Signs 04/27/24 10:38 Height 5 ft 1.5 in Weight 137 lb 9.095 oz BMI 25.6 BP 142/94 H Blood Pressure Location Lt brachial Position Sitting Pulse 58 Pulse Source Pulse Oximeter Pulse Oximetry (%) 100 Oxygen Delivery Method Room Air Intake Visit Reasons: 3 month follow up Intake Note: Billie presents in office today for a scheduled 3 mos FUV. CC; Pt reports that they have remained stable and well since their last visit. Pt denies any significant sx or concerns at this time. Pt needs refill of nexium. 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 Avoid dietary triggers. Discussed with patient that her symptoms of nausea could be related to what she eats. Patient will monitor and watch what she eats. Avoid fatty and greasy food. Continue high-fiber diet. Increase fluid intake and activity to promote better bowel motility. Patient will follow-up in our office in 3 months, sooner on as needed basis. She is agreeable to this plan and verbalizes understanding of instructions. She was given the opportunity to ask questions and all questions answered. ? Thank you for allowing me to participate in her care Medications Refilled sucralfate 1 g PO BEDTIME 90 tabs 1RF R19.7 esomeprazole magnesium (Nexium) 40 mg PO DAILY 90 caps 2RF K21.9 TODAY'S VISIT Patient is here today for follow-up. Patient reports that since the last time I have seen her she has been doing well. Patient takes Nexium in the morning and sucralfate at bedtime. Since her cholecystectomy patient had no more right upper quadrant pain. Reflux is under control with bulk Nexium and sucralfate. Patient denies dyspepsia, dysphagia or odynophagia. Patient denies any melena, hematochezia. Patient reports no abdominal pain. Moves her bowels regularly. Denies any diarrhea. [facility] Medical History GERD (gastroesophageal reflux disease) Dyskinesia of gallbladder Collagenous colitis Stress bladder incontinence, female Interstitial cystitis History of kidney stones Chronic right flank pain Surgical History History of laparoscopic cholecystectomy (~12/23/23) History of esophagogastroduodenoscopy (EGD) Hx of colonoscopy H/O nephrolithotomy with removal of calculi Family History Maternal Aunt Cancer Social History Alcohol intake: never Comment: counts correct Patient Tobacco Use Status: Never used Tobacco Substance Use Type: Marijuana Physical Exam Vital Signs: Last Vital Signs Pulse 58 04/27/24 10:38 BP 142/94 H 04/27/24 10:38 Pulse Ox 100 04/27/24 10:38 Oxygen Delivery Method Room Air 04/27/24 10:38 BMI result Body Mass Index 25.6 Assessment & Plan Assessment & Plan (1) IBS (irritable bowel syndrome): Code(s): K58.9 - Irritable bowel syndrome without diarrhea Qualifiers: Irritable bowel syndrome type: without diarrhea Qualified Code(s): K58.9 - Irritable bowel syndrome without diarrhea (2) Dyspepsia: Code(s): R10.13 - Epigastric pain (3) Nausea: Code(s): R11.0 - Nausea (4) Abdominal pain: Code(s): R10.9 - Unspecified abdominal pain Qualifiers: Abdominal location: right upper quadrant Qualified Code(s): R10.11 - Right upper quadrant pain (5) Family history of Crohn's disease: Code(s): Z83.79 - Family history of other diseases of the digestive system (6) Abnormal biliary HIDA scan: Code(s): R94.8 - Abnormal results of function studies of other organs and systems Plan Patient will continue taking Nexium in the morning and sucralfate on as needed basis. Avoid dietary triggers and late night snacking. Staying upright for minimum 3 hours after meals discussed with patient. High-fiber diet may take probiotic. Follow-up in the office in 6 months, sooner on as needed basis. Patient is agreeable to this plan and verbalizes understanding of instructions. She was given the opportunity to ask questions and all questions answered. Thank you for allowing me to participate in her care Medications: Refilled esomeprazole magnesium (Nexium) 40 mg PO DAILY 90 caps 2RF K21.9 - Gastro-esophageal reflux disease without esophagitis sucralfate 1 g PO BEDTIME 90 tabs 1RF R19.7 - Diarrhea, unspecified Discontinued ondansetron Discontinued Reason: Patient no longer taking 4 mg PO Q6-8H PRN 10 tabs 0RF nausea and vomiting Coding Level of Care Code Est Pt Level 3 (15035) Diagnoses Irritable bowel syndrome without diarrhea K58.9 Irritable bowel syndrome type: without diarrhea Dyspepsia R10.13 Nausea R11.0 Right upper quadrant abdominal pain R10.11 Abdominal location: right upper quadrant Family history of Crohn's disease Z83.79 Abnormal biliary HIDA scan R94.8 Time Spent (min) 25 Comment 15 minutes spent with patient and additional 10 minutes spent reviewing her records
[2024-04-27 10:38] VITALS: BP 142/94; PULSE 58; O2SAT 100; BMI 25.6
== END 2024-04-27 11:40 | disposition home or self-care (01) ==
PROVIDERS: PCP Internal Medicine; Visit Provider Nurse Practitioner Family
DX: K58.9 Irritable bowel syndrome, unspecified (principal); R10.13 Epigastric pain; R11.0 Nausea; R10.11 Right upper quadrant pain; Z83.79 Family history of other diseases of the digestive system; R94.8 Abnormal results of function studies of other organs and systems
CPT/HCPCS: 99213

== ENCOUNTER → 2024-04-27 10:22 | Outpatient (BNVA) | payer OTHER, SELFPAY | PROVIDERS: PCP Internal Medicine; Visit Provider Nurse Practitioner Family | DX: K21.9 Gastro-esophageal reflux disease without esophagitis (principal); K58.9 Irritable bowel syndrome, unspecified; R94.8 Abnormal results of function studies of other organs and systems; R10.13 Epigastric pain; R11.0 Nausea; R10.11 Right upper quadrant pain; Z83.79 Family history of other diseases of the digestive system | CPT/HCPCS: 99212 ==

== ENCOUNTER 2024-10-19 11:08 | Outpatient (AMB) | payer OTHER, SELFPAY ==
--- NOTE | 2024-10-19 11:11 | A.OFFVIS_ITS ---
Vital Signs 10/19/24 11:12 Height 5 ft 1 in Weight 143 lb 11.862 oz BMI 27.2 BP 100/70 Blood Pressure Location Lt brachial Position Sitting Pulse 84 Pulse Source Pulse Oximeter Pulse Oximetry (%) 99 Oxygen Delivery Method Room Air Intake Visit Reasons: 6 month follow up Intake Note: ESTABLISHED PATIENT for abd pain w/ diarrhea mgmt. Chief Complaint; Pt still reports occasional episodes similar in nature to that as per last visit. However; pt does report that their episodes are far less frequent now than when she started tx. Pt is doing much better. Aquarium Specialist Required: No Accompanied by: Self / Same As Patient Allergies No Known Allergies Allergy (Verified 10/19/24 11:11) HPI HPI 6 month follow up: Details: LAST VISIT IBS (irritable bowel syndrome) Dyspepsia Nausea Abdominal pain Family history of Crohn's disease Abnormal biliary HIDA scan Plan Patient will continue taking Nexium in the morning and sucralfate on as needed basis. Avoid dietary triggers and late night snacking. Staying upright for minimum 3 hours after meals discussed with patient. High-fiber diet may take probiotic. Follow-up in the office in 6 months, sooner on as needed basis. Patient is agreeable to this plan and verbalizes understanding of instructions. She was given the opportunity to ask questions and all questions answered. ? Thank you for allowing me to participate in her care Medications Refilled esomeprazole magnesium (Nexium) 40 mg PO DAILY 90 caps 2RF K21.9 sucralfate 1 g PO BEDTIME 90 tabs 1RF R19.7 Discontinued ondansetron Discontinued Reason: Patient no longer taking 4 mg PO Q6-8H PRN 10 tabs 0RF nausea and vomiting TODAY'S VISIT Patient is here today for follow-up. Patient reports that she continues to feel well. Denies any loose stools. Patient actually reports that she has normal bowel movements and no longer needs to use medication to either stop the diarrhea or help her go to the bathroom. Bowel movements normalized. Patient is eating well. Denies any melena, hematochezia, unintentional weight loss or or ribbon like stools. Patient denies any dyspepsia, dysphagia or odynophagia. Occasional abdominal bloating depending on what she eats, however patient reports to be doing well. Patient denies any GI concerning symptoms today. Patient's sister is on the phone speaker during the visit. [facility] Medical History GERD (gastroesophageal reflux disease) Dyskinesia of gallbladder Collagenous colitis Stress bladder incontinence, female Interstitial cystitis History of kidney stones Chronic right flank pain Surgical History History of laparoscopic cholecystectomy (~12/23/23) History of esophagogastroduodenoscopy (EGD) Hx of colonoscopy H/O nephrolithotomy with removal of calculi Family History Maternal Aunt Cancer Social History Alcohol intake: never Comment: counts correct Patient Tobacco Use Status: Never used Tobacco Substance Use Type: Marijuana Review of Systems Const Denies weight gain and Denies weight loss ENT Reports no additional complaints, Denies dysphagia and Denies odynophagia Card Reports no additional complaints Resp Reports no additional complaints GI Reports abdominal pain (occasional), Denies belching, Denies melena, Denies bloating, Denies change in bowel habits, Reports constipation (Occasional), Denies dysphagia, Denies excessive flatus, Denies dyspepsia, Denies heartburn, Denies diarrhea, Denies loose stools, Reports nausea (Occasional), Denies odynophagia and Denies vomiting Reports no additional complaints Musc Reports no additional complaints Neuro Reports no additional complaints Psych Reports no additional complaints Endo Reports no additional complaints Physical Exam Vital Signs: Last Vital Signs Pulse 84 10/19/24 11:12 BP 100/70 10/19/24 11:12 Pulse Ox 99 10/19/24 11:12 Oxygen Delivery Method Room Air 10/19/24 11:12 BMI result Body Mass Index 27.2 Const General: healthy appearing, no acute distress and well developed Nutritional Appearance: well nourished Orientation/consciousness: patient oriented x3 Resp Effort & Inspection: normal respiratory effort, able to speak in complete sentences, no tracheal deviation and symmetric chest movement Auscultation: clear to auscultation bilaterally Cardio Rate: regular rate GI Inspection: Yes normal to inspection and No distended Palpation (GI): Soft to palpation, not firm, nontender and No hepatosplenomegaly present Auscultation: normal bowel sounds General: Yes no CVA tenderness Back/Spine/Pelvis Back: no CVA tenderness Skin General skin exam: elasticity normal, turgor normal and dry skin Neuro General: patient oriented x3 Psych Appearance: grossly normal Mental Status: mental status grossly normal Assessment & Plan Assessment & Plan (1) IBS (irritable bowel syndrome): Code(s): K58.9 - Irritable bowel syndrome, unspecified Qualifiers: Irritable bowel syndrome type: with both diarrhea and constipation Qualified Code(s): K58.2 - Mixed irritable bowel syndrome (2) Dyspepsia: Code(s): R10.13 - Epigastric pain (3) Nausea: Code(s): R11.0 - Nausea (4) Abdominal pain: Code(s): R10.9 - Unspecified abdominal pain Qualifiers: Abdominal location: generalized Qualified Code(s): R10.84 - Generalized abdominal pain (5) Family history of Crohn's disease: Code(s): Z83.79 - Family history of other diseases of the digestive system (6) Abnormal biliary HIDA scan: Code(s): R94.8 - Abnormal results of function studies of other organs and systems Plan Patient can continue taking Nexium and take sucralfate as needed. Avoid dietary triggers and late night snacking. Staying upright for minimum 3 hours after meals discussed with patient. Patient will continue taking vitamin-D. Continue low FODMAP diet. Patient will follow-up in 1 year. She will call our office if she will have experience any GI concerning symptoms. She is agreeable to this plan and verbalizes understanding of instructions. Both patient and her sister were given the opportunity to ask questions and all questions answered. Thank you for allowing me to participate in her care Medications: Refilled esomeprazole magnesium (Nexium) 40 mg PO DAILY 90 caps 5RF K21.9 - Gastro- esophageal reflux disease without esophagitis cholecalciferol (vitamin D3) (Vitamin D3) 50 mcg PO DAILY 90 caps 3RF R79.89 - Other specified abnormal findings of blood chemistry Coding Level of Care Code Est Pt Level 3 (59878) Diagnoses Irritable bowel syndrome with both constipation and diarrhea K58.2 Irritable bowel syndrome type: with both diarrhea and constipation Dyspepsia R10.13 Nausea R11.0 Generalized abdominal pain R10.84 Abdominal location: generalized Family history of Crohn's disease Z83.79 Abnormal biliary HIDA scan R94.8 Time Spent (min) 25 Comment 15 minutes spent with patient and additional 10 minutes spent reviewing her records
[2024-10-19 11:12] VITALS: BP 100/70; PULSE 84; O2SAT 99; BMI 27.2
--- OUTSIDE RECORDS SUMMARY | 2024-10-19 13:04 | XMS_ITS | Patient Health Record ---
Author Organization [facility] Address [address] [place] [address] Care Team Providers Care Solid Tire Tuber Machine Operator Name Role Phone CARLOS CAVANAUGH Primary Care Provider Reason For Referral No Information Medications Medication SIG (Take, Route, Fr equency, Duration) Notes Start Date End Date Status Diflucan 150 mg 1 tab(s) orally once (may take after 72 hours ) 06/04/2022 Active Plan Of Treatment No Information Insurance Providers Payer Name Payer Address Payer Phone Subscriber Number Group Number Insured Name Patient Relationship to Insured Coverage Start Date Coverage End Date [facility] [employer] [address] [address] [place] [address] [id number] Billie Saunders Self - patient is the insured
--- OUTSIDE RECORDS SUMMARY | 2024-10-19 13:05 | XMS_ITS ---
Author Organization [facility] Address [address] [place] [phone] Care Team Providers Care Correspondence Transcriber Name Role Phone Jewels Chou Primary Care Provider Unavailab Warren Villafuerte Unavailable [phone] REASON FOR VISIT ruq pain,diarrhea Encounters Encounter Location Date Provider Diagnosis [facility] [address] [place] [phone] 12/01/2023 Warren Garcia PLAN OF TREATMENT No Information
--- OUTSIDE RECORDS SUMMARY | 2024-10-19 13:05 | XMS_ITS ---
Author Organization [facility] Address [address] [place] [phone] Care Team Providers Care Director Of Financial Aid Name Role Phone Jewels Chou Primary Care Provider Unavailab Warren Villafuerte Unavailable [phone] Encounters Encounter Location Date Provider Diagnosis [facility] [address] [place] [phone] 10/01/2023 Warren Garcia PLAN OF TREATMENT No Information
--- OUTSIDE RECORDS SUMMARY | 2024-10-19 13:05 | XMS_ITS | Patient Health Record ---
Author Organization [facility] Address [address] [place] [phone] Care Team Providers Care Engine Lathe Tender Name Role Phone Jewels Chou Primary Care Provider Unavailab Warren Villafuerte Unavailable [phone] REASON FOR REFERRAL No Information SOCIAL HISTORY Sex Assigned At : Social History Observation Description Sex Assigned At Unknown Encounters Encounter Location Date Provider Diagnosis [facility] [address] [place] [phone] 12/01/2023 Warren Garcia PLAN OF TREATMENT No Information Insurance Providers Payer Name Payer Address Payer Phone Subscriber Number Group Number Insured Name Patient Relationship to Insured Coverage Start Date Coverage End Date [facility] [address] [address] [place], [place] [id number] PATRIC MOON Self - patient is the insured
--- OUTSIDE RECORDS SUMMARY | 2024-10-19 13:05 | XMS_ITS ---
Author Organization [facility] Address [address] [place] [phone] Care Team Providers Care Cardiac Cath Lab Radiology Technologist Name Role Phone Jewels Chou Primary Care Provider Unavailab Warren Villafuerte Unavailable [phone] REASON FOR VISIT Patient presents today for a DIARRHEA/CRONIC RUQ PAIN Encounters Encounter Location Date Provider Diagnosis [facility] [address] [place] [phone] 09/30/2023 Warren Garcia PLAN OF TREATMENT No Information
== END 2024-10-19 12:04 | disposition home or self-care (01) ==
PROVIDERS: PCP Internal Medicine; Visit Provider Nurse Practitioner Family
DX: K58.2 Mixed irritable bowel syndrome (principal); R10.13 Epigastric pain; R11.0 Nausea; R10.84 Generalized abdominal pain; Z83.79 Family history of other diseases of the digestive system; R94.8 Abnormal results of function studies of other organs and systems
CPT/HCPCS: 99213

== ENCOUNTER → 2024-10-19 11:08 | Outpatient (BNVA) | payer OTHER, SELFPAY | PROVIDERS: PCP Internal Medicine; Visit Provider Nurse Practitioner Family | DX: K58.2 Mixed irritable bowel syndrome (principal); R10.13 Epigastric pain; R11.0 Nausea; R10.84 Generalized abdominal pain; R94.8 Abnormal results of function studies of other organs and systems; Z83.79 Family history of other diseases of the digestive system | CPT/HCPCS: 99212 ==